=== PATIENT | female | born 1960 | race Caucasian/White ===

== ENCOUNTER 2016-08-09 08:09 | Inpatient (IN) ==
--- NOTE | 2016-08-08 09:07 | PROVIDER DOCUMENTATION ---
Addendum entered and electronically signed by Kevin Cruz MD 08/09/16 07:52: Additional Progress - ADDITIONAL PLAN OF CARE/RESULTS Additional Progress/Plan/Lab Results: Pt deteriorated overnight, devel resp insufficiency. She was transferred to [facility] ED, since required intubation, no Pulmonologists @ [place], and no ICU beds upstairs. Upon arrival, min responsive to verbal stimuli. She was sedated with Etomidats, paralayzed with Anectine. Intubated with 7.5 ET tube on first pass by me. Tube visualized going thru cords, cood change on colorimeter. Procedures - INTUBATION Time of Intubation: 07:40 Intubation Method: orotracheal Equipment: ETT, Other (Sethi 2) Tube Size (cm): 7.5 Pretreated with 100% Oxygen?: Yes Breath Sounds after Intubation: equal ETT Primary Tube Confirmation: Capnometry CO2 Change, Direct Visualization, Tube placement verified on XRAY Intubation Complications: no complications Vent Settings: See Respiratory Therapy Notes Addendum entered and electronically signed by Kevin Cruz MD 08/08/16 16:24: Progress - PLAN OF CARE/RESULTS Progress/Plan/Lab Results: Have talked with her psychiatrist (Samantha) office Have obtained med list... Depakote 500 mg qHS Haldol deconoate 5 mg IM q 4 weeks Cogentin 1 mg po BID. Original Note: HPI-General Adult - General Source: patient - History of Present Illness -Gen Adult Nature of Presenting Problems: Pt is a 55 yof with a hx of bipolar schizophrenia that presents to er with cc of loss of balance upon standing. Pt reports that her equillibrium has been off for 7 days after coming back from her brothers but pt then reports she seen her doctor 2 weeks ago for this and he gave her medications that didn't help. pt reports subjective fever and cough.Pt reports her heart skips beats and it races fast. States nausea and vomiting since last night and diarrhea since this am. Reports abd pain but is unable to describe the pain. Pt is a poor historian , elements of story is contradictive and pt is unable to describe her symptoms. Pt is unable to name any medications that she is taking from . Location of Pain/Injury: reports: generalized Severity: reports: severe Onset/Duration: reports: unsure Timing: reports: still present Similar Symptoms Previously?: Yes Recently seen or treated by another doctor?: Yes <Lisa Francis - Last Filed: 08/08/16 14:01> <Kevin Cruz - Last Filed: 08/08/16 14:14> - General Chief Complaint: Dizziness Stated Complaint: dizziness with n/v/d Time Seen by Provider: 08/08/16 08:50 Allergies/Adverse Reactions: Patient Allergies Allergy/AdvReac Type Severity Reaction Status Date / Time No Known Allergies Allergy Verified 02/09/16 15:53 Home Medications: Home Medication List Medication Instructions Recorded Confirmed Last Taken Type Benztropine [Cogentin] 1 mg PO BID 08/09/15 08/08/16 02/09/16 06:00 History Amlodipine [Norvasc] 5 mg PO DAILY 08/08/16 08/08/16 Unknown History Divalproex E.r. [Depakote ER] 1,000 mg PO HS 08/08/16 08/08/16 Unknown History Review of Systems - Adult - REVIEW OF SYSTEMS - ADULT Constitutional: reports: fever. denies: chills, fatique, night sweats Eyes: denies: blurred vision, double vision, eye pain Ears, Nose, Mouth & Throat: denies: ear pain, sinus problem, throat pain Cardiovascular: reports: irregular heart rate. denies: chest pain, orthopnea, poor circulation, PND, syncope Respiratory: reports: cough. denies: shortness of breath, wheezing Gastrointestinal: reports: abdominal pain, diarrhea, nausea, vomiting. denies: difficulty swallowing, frequent heartburn, poor appetite Genitourinary: denies: dysuria, frequent UTI's, hematuria, hesitency Musculoskeletal: reports: no symptoms reported Integumentary: reports: no symptoms reported Neurological: reports: loss of balance. denies: dizziness/vertigo, headache/ migraines, numbness, paresthesia, seizure Psychiatric: reports: no symptoms reported Endocrine: reports: no symptoms reported Hematologic/Lymphatic: reports: no symptoms reported Allergic/Immunologic: reports: no symptoms reported All Other Systems: Reviewed and Negative <Lisa Francis - Last Filed: 08/08/16 14:01> Past History - Adult - PAST MEDICAL HISTORY-ADULT Review of Records: reports: Nursing Assessment Review, Medications Reviewed Major Childhood Illnesses: reports: denies history Cardiovascular: reports: arrhythmia, HTN Respiratory: reports: asthma, COPD Neurological: reports: Seizures/Epilepsy Psychiatric: reports: bipolar, schizophrenia - PRIOR SURGERIES/PROCEDURES Surgical/Procedure History: reports: reviewed, not pertinent - IMMUNIZATION STATUS Childhood Immunizations: See Nurse Assessment Flu Vaccine: See Nurse Assessment - FAMILY HISTORY Family History: reviewed, not pertinent - SOCIAL HISTORY Smoking: greater than 1 pack/day Provider spent 3-5 mins advising pt. on dangers of tobacco.: Discussed manners to quit use, and f/u contacts for add'l counseling. Substance Use: none/never <Lisa Francis - Last Filed: 08/08/16 14:01> Physical Exam-General - PHYSICAL EXAM-ADULT Initial Vital Signs Reviewed: Yes - CONSTITUTIONAL General Appearance: alert, no apparent distress. negative: appears well - EYES Eyes: PERRL/EOMI - HEAD, EARS, NOSE, MOUTH & THROAT HENMT: moist mucous membranes, pharynx normal, dental decay - NECK Neck: non-tender, full range of motion, supple, normal inspection - RESPIRATORY Respiratory: chest non-tender, lungs clear, normal breath sounds, no pleuratic chest pain, no respiratory distress, no accessory muscle use - CARDIOVASCULAR Cardiovascular: regular rate, rhythm, tachycardia - GASTROINTESTINAL (ABDOMEN) Abdominal Exam: normal bowel sounds, non tender, soft, no organomegaly, no pulsatile mass - MUSCULOSKELETAL Back Exam: normal inspection, no CVA tenderness, no vertebral tenderness Extremity: normal range of motion, non-tender Peripheral Pulses: dorsalis-pedis (R): 2+, dorsalis-pedis (L): 2+ - SKIN Integumentary: normal color, normal turgor, warm/dry - NEUROLOGIC Neurologic: technician helper instrument II-XII nml as tested, grossly normal, no motor/sensory deficits - PSYCHIATRIC Psych/Mental Status: oriented x 3 <Lisa Francis - Last Filed: 08/08/16 14:01> Progress - PLAN OF CARE/RESULTS Progress/Plan/Lab Results: Orders Category Date Time Status ED: Orthostatic Vital Signs (E as directed Care 08/08/16 09:05 Active CHEST-PORTABLE [RAD] Stat Exams 08/08/16 09:05 Ordered AMYLASE [CHEM] Stat Lab 08/08/16 09:06 Ordered CBC WITH DIFF [HEME] Stat Lab 08/08/16 09:05 Ordered COMPREHENSIVE METABOLIC PANEL [CHEM] Stat Lab 08/08/16 09:05 Ordered LIPASE [CHEM] Stat Lab 08/08/16 09:06 Ordered [address]IME WITH INR PL [COAG] Stat Lab 08/08/16 09:[address] [COAG] Stat Lab 08/08/16 09:05 Ordered EKG [EKG] Stat Ther 08/08/16 09:04 Ordered Vital Signs - 24 hr 08/08/16 08:10 Temperature 98 F Pulse Rate 110 H Respiratory 20 Rate Blood Pressure 167/113 O2 Sat by Pulse 94 L Oximetry Md Cruz called office to find out medications that pt is taking 0910 They will fax a med list over to ED. Laboratory Tests 08/08/16 08/08/16 08/08/16 09:18 09:18 09:18 WBC 9.35 RBC 4.69 Hgb 14.8 Hct 42.8 MCV 91.3 MCH 31.6 H MCHC 34.6 RDW Std Deviation 12.8 Plt Count 188 MPV 9.5 Immature Gran % (Auto) 0.2 Neut % (Auto) 75.1 Lymph % (Auto) 10.1 L Walsh % (Auto) 14.2 H Eos % (Auto) 0.2 Baso % (Auto) 0.2 Immature Gran # (Auto) 0.02 Neut # (Auto) 7.02 H Lymph # (Auto) 0.94 L Walsh # (Auto) 1.33 H Eos # (Auto) 0.02 Baso # (Auto) 0.02 PT INR APTT (Factor Assay) Sodium 124 L Potassium 4.3 Chloride 84 L Carbon Dioxide 32 Anion Gap 9 BUN 11 Creatinine 0.5 Estimated GFR/1.73 m2 > 60 BUN/Creatinine Ratio 22 Glucose 109 H Calculated Osmolality 250 Calcium 9.3 Total Bilirubin 0.50 AST 31 H ALT 25 Alkaline Phosphatase 106 H Total Protein 7.2 Albumin 3.5 Globulin 4.0 Albumin/Globulin Ratio 1.0 Amylase 36 Lipase 9 L 08/08/16 09:18 WBC RBC Hgb Hct MCV MCH MCHC RDW Std Deviation Plt Count MPV Immature Gran % (Auto) Neut % (Auto) Lymph % (Auto) Walsh % (Auto) Eos % (Auto) Baso % (Auto) Immature Gran # (Auto) Neut # (Auto) Lymph # (Auto) Walsh # (Auto) Eos # (Auto) Baso # (Auto) PT 14.1 INR 1.06 APTT (Factor Assay) 28.7 Sodium Potassium Chloride Carbon Dioxide Anion Gap BUN Creatinine Estimated GFR/1.73 m2 BUN/Creatinine Ratio Glucose Calculated Osmolality Calcium Total Bilirubin AST ALT Alkaline Phosphatase Total Protein Albumin Globulin Albumin/Globulin Ratio Amylase Lipase Laboratory Tests 08/08/16 08/08/16 08/08/16 08:35 09:18 09:18 WBC 9.35 RBC 4.69 Hgb 14.8 Hct 42.8 MCV 91.3 MCH 31.6 H MCHC 34.6 RDW Std Deviation 12.8 Plt Count 188 MPV 9.5 Immature Gran % (Auto) 0.2 Neut % (Auto) 75.1 Lymph % (Auto) 10.1 L Walsh % (Auto) 14.2 H Eos % (Auto) 0.2 Baso % (Auto) 0.2 Immature Gran # (Auto) 0.02 Neut # (Auto) 7.02 H Lymph # (Auto) 0.94 L Walsh # (Auto) 1.33 H Eos # (Auto) 0.02 Baso # (Auto) 0.02 PT INR APTT (Factor Assay) Sodium 124 L Potassium 4.3 Chloride 84 L Carbon Dioxide 32 Anion Gap 9 BUN 11 Creatinine 0.5 Estimated GFR/1.73 m2 > 60 BUN/Creatinine Ratio 22 Glucose 109 H POC Glucose 111 H Calculated Osmolality 250 Calcium 9.3 Total Bilirubin 0.50 AST 31 H ALT 25 Alkaline Phosphatase 106 H Total Protein 7.2 Albumin 3.5 Globulin 4.0 Albumin/Globulin Ratio 1.0 Amylase Lipase 08/08/16 08/08/16 09:18 09:18 WBC RBC Hgb Hct MCV MCH MCHC RDW Std Deviation Plt Count MPV Immature Gran % (Auto) Neut % (Auto) Lymph % (Auto) Walsh % (Auto) Eos % (Auto) Baso % (Auto) Immature Gran # (Auto) Neut # (Auto) Lymph # (Auto) Walsh # (Auto) Eos # (Auto) Baso # (Auto) PT 14.1 INR 1.06 APTT (Factor Assay) 28.7 Sodium Potassium Chloride Carbon Dioxide Anion Gap BUN Creatinine Estimated GFR/1.73 m2 BUN/Creatinine Ratio Glucose POC Glucose Calculated Osmolality Calcium Total Bilirubin AST ALT Alkaline Phosphatase Total Protein Albumin Globulin Albumin/Globulin Ratio Amylase 36 Lipase 9 L - EKG 1 Time of EKG reading by physician:: 09:14 EKG Read and Signed by:: Kevin Cruz EKG Interpretation (*Must complete 3 of following elements*): Abnormal ( biatrial enlargement) Rate: 102 Rhythm: sinus tachy Paulina: normal ST Wave: non-specific ST changes - XRAY 1 XRAY: Bilateral XRAY Study: Chest Impression: Abnormal (cardiomegaly and pulmonary vascular congestion) - CONSULTS/PCP/HOSPITALIST Notification #1 *Consult/PCP/Hospitalist*: Time Discussed: 14:01 Consult Disposition: Admit <Lisa Francis - Last Filed: 08/08/16 14:01> Departure - Departure Time of Disposition Order: 13:17 Certified Medical Emergency: Emergent <Lisa Francis - Last Filed: 08/08/16 14:01> - Departure Certified Medical Emergency: Emergent <Kevin Cruz - Last Filed: 08/08/16 14:14> - Departure DIAGNOSIS: Nausea & vomiting, Hyponatremia, Diarrhea Disposition: ADMITTED INPATIENT 09 Condition: Stable Referrals: Cristóbal Singh [Primary Care Provider] - Attestation - Scribe Verification/Attestation Scribe:: Lisa Francis Acting as Scribe for:: Kevin Cruz Scribe documention review:: This chart was documented by a scribe and accurately reflects the service the provider performed and the decisions made by the provider. <Lisa Francis - Last Filed: 08/08/16 14:01> Physician Attestation - Physician Attestation I, the provider, attest to the following statement:: Kevin Cruz Physician documentation Attestation:: This documentation recorded by the scribe accurately reflects the service I personally performed and the decisions made by me. <Kevin Cruz - Last Filed: 08/08/16 14:14>
[2016-08-08 09:29] LABS: BASO% 0.2 % (0.0-0.8); EOS# 0.02 X1000 (0.0-0.7); EOS% 0.2 % (0.0-10.0); HEMATOCRIT 42.8 % (37.0-47.0); HEMOGLOBIN 14.8 g/dL (12.0-16.0); IMM GRAN# 0.02 X1000 (0.0-0.04); IMM GRAN% 0.2 % (0.0-0.5); LYMPH# 0.94 X1000 (1.2-3.4); LYMPH% 10.1 % (20.5-51.1); MANUAL DIFF NEEDED? NO; MCH 31.6 PG (27-31); MCHC 34.6 g/dL (33-37); MCV 91.3 FL (81-99); MONO# 1.33 X1000 (0.11-0.59); MONO% 14.2 % (1.7-9.3); MPV 9.5 FL (7.4-10.4); NEUT% 75.1 % (42.2-75.2); PLT 188 X1000 (130-400); RBC 4.69 XMIL (4.2-5.4)
--- NOTE | 2016-08-08 09:31 | EKG Report ---
Test Performed on : 08/08/2016 09:14:21 AM Test Reason : CP Blood Pressure : / mmHG Vent. Rate : 102 BPM Atrial Rate : 102 BPM P-R Int : 138 ms QRS Dur : 086 ms QT Int : 318 ms P-R-T Axes : 079 081 070 degrees QTc Int : 414 ms Sinus tachycardia. Biatrial enlargement Nonspecific ST abnormality Abnormal ECG When compared with ECG of 10-FEB-2016 05:50, No significant change was found Unconfirmed Result
[2016-08-08 09:49] LABS: INR 1.06 (0.86-1.15); PROTIME 14.1 Seconds (12.1-15.5)
[2016-08-08 09:50] LABS: PTT PL 28.7 Seconds (22.6-43.9)
[2016-08-08 09:57] LABS: AMYLASE 36 U/L (20-200); LIPASE 9 U/L (13-60)
[2016-08-08 10:09] LABS: AGAP 9; ALBUMIN 3.5 g/dL (3.5-5.0); ALKALINE PHOSPHATASE 106 U/L (32-104); BUN 11 mg/dL (8-22); CALCIUM 9.3 mg/dL (8.8-10.2); CHLORIDE 84 mmol/L (98-107); COSMO 250; GOT 31 U/L (10-30); GPT 25 U/L (10-36); POTASSIUM 4.3 mmol/L (3.5-5.1); SODIUM 124 mmol/L (136-145); TCO2 32 mmol/L (25-35); TOTAL PROTEIN 7.2 g/dL (6.3-8.3)
--- NOTE | 2016-08-08 10:25 | Diag Imaging Result Document ---
PROCEDURE NAME: CHEST-PORTABLE - 08/08/2016 PORTABLE CHEST X-RAY, 08/08/2016: COMPARISON: 02/10/2016. FINDINGS: Heart size is mildly enlarged. There is borderline pulmonary vascular congestion. No obvious infiltrates or edema. No pneumothorax or pleural effusion. IMPRESSION: Cardiomegaly and pulmonary vascular congestion.
[2016-08-08] MEDS: NS 1,000 ML IV SCH (15:52)
--- NOTE | 2016-08-08 19:27 | HISTORY AND PHYSICAL ---
CHIEF COMPLAINT: Nausea, vomiting and diarrhea. HISTORY OF PRESENT ILLNESS: This is a 55-year-old female with a history of bipolar disorder, schizophrenia, COPD and looks like atrial fibrillation. According to the ER records she stated that her balance had been off for about 7 days after coming back from a visit with family members. She states that nausea, vomiting and diarrhea started last night, and then in mid sentence she will refer to nausea, vomiting and diarrhea again and state that it happened within the last 2 weeks. So we are unsure of when symptoms actually started and how long they have been present. Dr. Cruz in the emergency room . She is found to have a sodium of 124, as well as a glucose of 109. Her chest x-ray revealed no pneumothorax or pleural effusion. No obvious infiltrates or edema. She is being admitted for further evaluation and treatment. PAST MEDICAL HISTORY: Per the chart, reveals COPD, schizophrenia, bipolar disorder, seizure disorder, anxiety disorder and atrial fibrillation. PAST SURGICAL HISTORY: Denies. SOCIAL HISTORY: She lives at [facility]. She smokes about a pack a day. She denies any illicit drug use. ALLERGIES: Aspirin and penicillin per the chart. HOME MEDICATIONS: Depakote 500 at bedtime. Haldol 5 mg IM q.4 weeks. Cogentin 1 mg b.i.d. REVIEW OF SYSTEMS: Unable to obtain from the patient due to conflicting accounts. PHYSICAL EXAMINATION: GENERAL: This is a 55-year-old female, who is sitting up in the bed eating in no distress. VITAL SIGNS: Blood pressure is 154/87 with a heart rate of 100, respirations are 20, temperature is 98.4 degrees oral with oxygen saturations of 96-97% on 2 L nasal cannula. CARDIOVASCULAR: Regular rate and rhythm. S1 and S2 appreciated. PULMONARY: Breath sounds are clear with no increased work of breathing noted. GASTROINTESTINAL: Soft, nontender, nondistended. Bowel sounds in all 4 quadrants. MUSCULOSKELETAL: Good range of motion to joints. EXTREMITIES: No clubbing, cyanosis, or edema. Calves are nontender. Pulses are palpable x4. SKIN: Warm and dry with linear areas noted on legs to the front of her shins, up her arms and on her sides. These are not scabbed. There is no drainage. DIAGNOSTICS/LABORATORY: WBC is 9.3 with a hemoglobin of 14.8, hematocrit 42.8 and platelets of 188,000. Sodium is 124, potassium 4.3, chloride 84, BUN 11, creatinine 0.5, glucose of 109. Lipase is 9. Chest x-ray reveals no acute processes. ASSESSMENT: 1. Hyponatremia. 2. Nausea, vomiting and diarrhea. 3. Psychogenic polydipsia. 4. Bipolar disorder. 5. Chronic obstructive pulmonary disease. 6. Schizophrenia. 7. Seizure disorder. 8. Anxiety disorder. 9. History of atrial fibrillation. PLAN: The patient will be admitted to the hospital. She will be placed on telemetry. Her eye home medications were verified with her psychiatrist as well as her pharmacy. We will continue these as ordered. We will give intravenous hydration. We will recheck electrolytes in the morning. Blood pressures are running in the 150-170s/80s. We will start Norvasc 5 mg daily and trend vital signs. The patient does have areas to bilateral legs on the front surface as well as her arms and her sides. These are linear. They appear to be old scratches. There are no scabs, no drainage. When she was 1st questioned, she stated she did not know what was wrong. Someone mentioned bedbugs and ants and she said "yes that is what it is", she had bed bugs from the field across the street, then ants were mentioned and she said yes, then she also stated that it could be mice biting her. We are unsure of these. There is no bruising. We will reassess in the morning. Further treatments pending hospital course. Dictated by KYLE Royal for Lamonte Bradsahw MD
[2016-08-09 01:57] LABS: BE 9.9 mmoll (-3.0-3.0); BLOOD TYPE ARTERIAL; DRAW SITE R RADIAL; METHB 1.6 % (0.0-1.5); O2(CT) 18.4 mL/dL (15.0-23.0); PO2(98.6) 113 mmHg (60-100); SAMPLE BLOOD; SAO2 98.6 % (95.0-100.0); THB 14.1 g/dL (11.5-17.4); pH(98.6) 7.22 (7.35-7.45)
[2016-08-09 02:00] LABS: ALLEN TEST YES; MODALITY VENTIMASK; PCO2(98.6) 103 mmHg (35-45)
[2016-08-09 02:48] LABS: HEMATOCRIT 40.2 % (37.0-47.0); HEMOGLOBIN 13.5 g/dL (12.0-16.0); MCH 31.4 PG (27-31); MCHC 33.6 g/dL (33-37); MCV 93.5 FL (81-99); MPV 9.1 FL (7.4-10.4); RBC 4.3 XMIL (4.2-5.4)
[2016-08-09 03:04] LABS: AGAP 6; ALKALINE PHOSPHATASE 96 U/L (32-104); BUN 9 mg/dL (8-22); CALCIUM 8.8 mg/dL (8.8-10.2); CHLORIDE 88 mmol/L (98-107); COSMO 256; GOT 23 U/L (10-30); GPT 22 U/L (10-36); MAGNESIUM 1.4 mg/dL (1.5-2.7); POTASSIUM 4.6 mmol/L (3.5-5.1); SODIUM 127 mmol/L (136-145); TCO2 33 mmol/L (25-35); TOTAL PROTEIN 6.5 g/dL (6.3-8.3)
[2016-08-09 05:22] LABS: BE 7.2 mmoll (-3.0-3.0); BLOOD TYPE ARTERIAL; DRAW SITE R RADIAL; METHB 1.5 % (0.0-1.5); O2(CT) 17.1 mL/dL (15.0-23.0); PO2(98.6) 83 mmHg (60-100); SAMPLE BLOOD; SAO2 96.7 % (95.0-100.0); THB 13.3 g/dL (11.5-17.4)
[2016-08-09 05:41] LABS: ALLEN TEST YES; MODALITY BI PAP; PCO2(98.6) 103 mmHg (35-45); pH(98.6) 7.19 (7.35-7.45)
[2016-08-09] MEDS: NS 1,000 ML IV SCH ×2 (06:46→23:12)
--- NOTE | 2016-08-09 07:32 | Diag Imaging Result Document ---
PROCEDURE NAME: CHEST-PORTABLE - 08/09/2016 ERECT AP PORTABLE CHEST AT 0137 HOURS: FINDINGS: There may be a mild degree of interstitial pulmonary edema. This has not apparently changed significantly since the previous study of 08/08/2016. The heart size and pulmonary vascularity are stable in appearance. IMPRESSION: Stable chest.
[2016-08-09] MEDS: DIPRIVAN 1% 100 ML IV SCH ×12 (07:50→21:01)
[~2016-08-09 08:09] MED LIST: AMIDATE IV ONE; AMIDATE ONE; COGENTIN PO SCH; DIPRIVAN 1% 100 ML ONE; DUONEB (A & A) INH ONE; DUONEB (A & A) ONE; FLUZONE QUAD 2016-2017 SYRINGE IM ONE; LASIX IV ONE; LEVAQUIN 750 MG/D5W 150 ML IV SCH; MAGNESIUM SULFATE 2 GM/S.W.I. 50 ML IV ONE; NS 1,000 ML IV ONE; OFIRMEV 1000 MG/ISOTONIC SOLN 100 ML IV ONE; PNEUMOVAX 23 IM ONE; PROTONIX IV SCH; QUELICIN IV ONE; QUELICIN ONE; SODIUM CHLORIDE 0.9% INJ SCH; TYLENOL PO PRN; ZOFRAN IV PRN
[2016-08-09] MEDS ORDERED: DUONEB (A & A) INH PRN (08:24)
[2016-08-09 08:27] LABS: ALLEN TEST YES; BLOOD TYPE ARTERIAL; DRAW SITE R RADIAL; METHB 2.1 % (0.0-1.5); O2(CT) 17.9 mL/dL (15.0-23.0); PO2(98.6) 454 mmHg (60-100); SAMPLE BLOOD; SAO2 99.2 % (95.0-100.0); SRATE 12 BPM; THB 12.6 g/dL (11.5-17.4); TVOL 450 mL
[2016-08-09 08:28] LABS: MODALITY VENTILATOR; PCO2(98.6) 92 mmHg (35-45)
[2016-08-09] MEDS ORDERED: LEVAQUIN 750 MG/D5W 150 ML ONE (08:56)
[2016-08-09] MEDS ORDERED: NORVASC PO SCH (09:00)
[2016-08-09 09:50] LABS: AGAP 4; ALBUMIN 2.8 g/dL (3.5-5.0); ALKALINE PHOSPHATASE 81 U/L (32-104); BUN 12 mg/dL (8-22); CALCIUM 7.8 mg/dL (8.8-10.2); CHLORIDE 89 mmol/L (98-107); CK PROFILE 54 U/L (24-173); COSMO 260; GOT 17 U/L (10-30); GPT 17 U/L (10-36); POTASSIUM 4.5 mmol/L (3.5-5.1); SODIUM 130 mmol/L (136-145); TCO2 37 mmol/L (25-35); TOTAL BILIRUBIN 0.47 mg/dL (0.20-1.00); TOTAL PROTEIN 5.3 g/dL (6.3-8.3)
--- NOTE | 2016-08-09 10:26 | EKG Report ---
Test Performed on : 08/09/2016 09:42:01 AM Test Reason : resp failure Blood Pressure : / mmHG Vent. Rate : 074 BPM Atrial Rate : 074 BPM P-R Int : 120 ms QRS Dur : 092 ms QT Int : 424 ms P-R-T Axes : 046 075 053 degrees QTc Int : 470 ms Normal sinus rhythm. T wave abnormality, consider anterior ischemia Prolonged QT Abnormal ECG When compared with ECG of 08-AUG-2016 09:14, (Unconfirmed) T wave inversion now evident in Anterior leads QT has lengthened Confirmed by Mary REDDY, Wily Pandya ([id number]) on 08/09/2016 3:42:27 PM
[2016-08-09] MEDS ORDERED: PROTONIX ONE (10:34)
[2016-08-09] MEDS ORDERED: ZOSYN ONE (10:34)
[2016-08-09] MEDS ORDERED: NS ONE (10:34)
[2016-08-09] MEDS: ZOSYN 3.375 GM/NS 50 ML IV SCH ×3 (10:40→21:01)
--- NOTE | 2016-08-09 11:14 | Diag Imaging Result Document ---
PROCEDURE NAME: CHEST-PORTABLE - 08/09/2016 SINGLE FRONTAL RADIOGRAPH OF THE CHEST: COMPARISON: 08/09/2016. FINDINGS: There has been interval placement of an ET tube. The tip projects over the trachea and above the richard at about the T4 level. There is, perhaps, very mild interstitial prominence similar to the previous study. No new consolidation is identified. Cardiac silhouette is stable. IMPRESSION: Interval intubation as described. Otherwise, the chest is stable.
[2016-08-09] MEDS: DUONEB (A & A) INH SCH ×4 (11:30→22:55)
--- NOTE | 2016-08-09 12:30 | Diag Imaging Result Document ---
PROCEDURE NAME: HEAD W/O CONTRAST - 08/09/2016 CT BRAIN WITHOUT CONTRAST. DOSE REDUCTION PROTOCOL. FINDINGS: No parenchymal hemorrhage. No epidural or subdural hematoma. No subarachnoid hemorrhage. No mass identified on this noncontrasted exam. No hydrocephalus. There is mucous in the ethmoid sinuses and a small amount in the frontal, maxillary, and sphenoid sinuses. IMPRESSION: 1. No hemorrhage. 2. Mild microvascular ischemic changes. 3. Mild sinusitis. A preliminary report was given at 12:15 p.m..
[2016-08-09 12:52] LABS: URINE CULTURE NEEDED? NO; URINE MICRO REVIEW NEEDED? NO; URINE SOURCE CATH
[2016-08-09 13:01] LABS: BILIRUBIN URINE NEGATIVE (NEGATIVE); BLOOD URINE TRACE (NEGATIVE); COLOR YELLOW; GLUCOSE URINE NEGATIVE (NEGATIVE); LEUKOCYTES URINE NEGATIVE (NEGATIVE); NITRITE URINE NEGATIVE (NEGATIVE); PROTEIN URINE TRACE mg/dL (NEGATIVE); SP GRAVITY URINE 1.012; TURBIDITY URINE CLEAR (CLEAR); UROBILINOGEN URINE NORMAL (NORMAL)
[2016-08-09 13:03] LABS: UR EPITHELIAL CELLS <10 /HPF (<10); URINE BACTERIA NEGATIVE /HPF; URINE RBC <10 /HPF (<10); URINE WBC <10 /HPF (<10)
[2016-08-09 13:25] LABS: UR AMPHETAMINES QUAL NONE DETECTED (NONE DETECT); UR BARBITUATES QUAL NONE DETECTED (NONE DETECT); UR BENZODIAZEPIN QUAL NONE DETECTED (NONE DETECT); UR CANNABINOIDS QUAL NONE DETECTED (NONE DETECT); UR COCAINE QUAL NONE DETECTED (NONE DETECT); UR METHADONE QUAL NONE DETECTED (NONE DETECT); UR OPIATES QUAL NONE DETECTED (NONE DETECT); UR OXYCODONE QUAL NONE DETECTED (NONE DETECT); UR PCP QUAL NONE DETECTED (NONE DETECT)
[2016-08-09 13:26] LABS: UR CREAT RANDOM 85.5 mg/dL (11-20)
[2016-08-09 14:44] LABS: BASO% 0.3 % (0.0-0.8); EOS# 0.12 X1000 (0.0-0.7); EOS% 1.5 % (0.0-10.0); HEMATOCRIT 36.1 % (37.0-47.0); IMM GRAN# 0.02 X1000 (0.0-0.04); IMM GRAN% 0.3 % (0.0-0.5); LYMPH# 1.38 X1000 (1.2-3.4); LYMPH% 17.7 % (20.5-51.1); MANUAL DIFF NEEDED? YES; MCH 31.7 PG (27-31); MCHC 33.2 g/dL (33-37); MCV 95.5 FL (81-99); MONO# 1.67 X1000 (0.11-0.59); MONO% 21.5 % (1.7-9.3); MPV 9.1 FL (7.4-10.4); NEUT% 58.7 % (42.2-75.2); PLT 173 X1000 (130-400); RBC 3.78 XMIL (4.2-5.4)
[2016-08-09] MEDS ORDERED: NS 1,000 ML IV SCH (14:57)
[2016-08-09 15:15] LABS: BANDS 8 % (0-1); EOS 2 % (1-10); LYMPHS 8 % (21-51); MONO 16 % (1-9)
[2016-08-09] MEDS: LASIX IV SCH ×2 (15:19→23:12)
[2016-08-09] MEDS: SOLU-MEDROL IV SCH ×2 (15:19→23:12)
[2016-08-09 15:27] LABS: ALLEN TEST YES; BE 5.9 mmoll (-3.0-3.0); BLOOD TYPE ARTERIAL; DRAW SITE R RADIAL; METHB 1.7 % (0.0-1.5); O2(CT) 16.4 mL/dL (15.0-23.0); PO2(98.6) 96 mmHg (60-100); SAMPLE BLOOD; SAO2 98.8 % (95.0-100.0); SRATE 8 BPM; THB 12.3 g/dL (11.5-17.4); TVOL 700 mL; pH(98.6) 7.34 (7.35-7.45)
[2016-08-09 15:30] LABS: MODALITY VENTILATOR
--- NOTE | 2016-08-09 15:47 | CONSULTATION ---
DATE OF CONSULTATION: 08/09/2016 REQUESTING PHYSICIAN: Lamonte Bradshaw M.D. REASON FOR CONSULTATION: Respiratory failure. HISTORY OF PRESENT ILLNESS: Ms. Valentin is a 55-year-old, white female, with COPD, ongoing tobacco use, bipolar/schizophrenic disorder, who presented to the emergency room with difficulty in balance along with nausea and vomiting. The patient was admitted to the hospital and had a drop in oxygen saturations and decline in mental status. Arterial blood gas revealed a pC02 of 103 which did not improve with BiPAP. She was transferred to [facility] from the [facility] intubated and initiated on mechanical ventilation. Chest x-ray reveals generous cardiac silhouette with mild vascular prominence. CT scan of the brain was performed which revealed mild microvascular ischemic changes but no hemorrhage. PAST MEDICAL HISTORY: 1. COPD with ongoing tobacco use. 2. Psychiatric disease as per above. 3. History of seizure disorder. 4. History of anxiety disorder. SOCIAL HISTORY: Patient previously lived at [facility]. Ongoing tobacco use. No illicit drug use. FAMILY HISTORY: Positive for diabetes and heart disease. REVIEW OF SYSTEMS: Cannot be obtained. PHYSICAL EXAMINATION: General: Examination reveals a well-developed, well-nourished, white female who appears older than her stated age, on mechanical ventilation. Vital Signs: BP 143/79, heart rate 78, respiration rate set at 18, oxygen saturation 100%. The ventilator is reviewed. She is not completing her exhalation with a respiratory rate of 18. HEENT: Pupils are equal and reactive. Oropharynx is clear but there is mild hirsutism. Neck: Supple. Chest: Reveals prolonged expiratory phase. Each exhalation is taking 7-8 seconds. Chest reveals prolonged expiratory phase with distant wheezing. Cardiac Examination: Distant heart sounds. Normal S1, normal S2. Abdomen: Soft without hepatosplenomegaly. Extremities: Reveal trace edema with some scratches on both shins. IMPRESSION: A 55-year-old with psychiatric disorder, severe chronic obstructive pulmonary disease, ongoing tobacco use, who presents with acute on chronic hypercapnic respiratory failure and acute hypoxemic respiratory failure. RECOMMENDATIONS: 1. Continue full ventilatory support. 2. Input and output equal for the next 24 hours. 3. Agree with current antibiotic regimen. 4. Continue nebulizers q.4 hours. 5. Initiate steroids. 6. Routine gastric acid suppression. 7. Additional recommendations pending hospital course.
[2016-08-09 16:14] LABS: PCO2(98.6) 62 mmHg (35-45)
--- NOTE | 2016-08-09 16:47 | ECHO REPORT ---
ORDER DATE: 08/09/2016 INTERPRETING PHYSICIAN: Dr. Abrams REQUESTING PHYSICIAN: CLINICAL INDICATIONS: This is a 55-year-old female with COPD, atrial fibrillation, respiratory failure. M-MODE MEASUREMENTS: Right ventricle: 3.5 cm. Left ventricle end diastole: 4.1 cm. Left ventricle end systole: 2.8 cm. Posterior wall: 1.1 cm. Interventricular septum: 1.1 cm. Left atrium: 3.5 cm. Aortic root: 2.6 cm. SUMMARY OF 2-DIMENSIONAL IMAGIN. The left ventricular function appears to be normal. Ejection fraction is estimated to be in the order of 60% to 65%. No wall motion abnormality appears to be present. 2. The study is technically difficult. The patient is on a ventilator. 3. There is probably mild degree of concentric LVH. 4. The mitral valve opens normally. Color flow mapping is unremarkable. 5. Pulse wave Doppler of mitral inflow is normal. 6. Tissue Doppler of septal and lateral mitral annulus averages 7 cm. 7. The pulmonary venous flow shows normal pattern. 8. Aortic valve looks normal. Color flow mapping is unremarkable. 9. Pulmonic valve looks normal. Color flow mapping is unremarkable. 10.The tricuspid valve shows trace regurgitation. 11.The pulmonary pressure appears to be at 33 mmHg. 12.There is no pericardial effusion, mass or thrombus. 13.The atria appear to be normal. CONCLUSIONS: 1. Normal left ventricular systolic function. 2. Moderately enlarged right ventricle. 3. No valvular abnormality of any significance. 4. No diastolic dysfunction. 5. Pulmonary systolic pressure is 33 mmHg. Clinical correlation is recommended.
[2016-08-09] MEDS ORDERED: TYLENOL PO PRN (22:33)
[2016-08-09] MEDS ORDERED: ZOFRAN IV PRN (22:33)
[2016-08-10] MEDS: DIPRIVAN 1% 100 ML IV SCH ×9 (00:21→23:02)
[2016-08-10] MEDS: ZOSYN 3.375 GM/NS 50 ML IV SCH ×4 (02:37→20:42)
[2016-08-10] MEDS: DUONEB (A & A) INH SCH ×6 (03:46→23:09)
[2016-08-10] MEDS: SOLU-MEDROL IV SCH ×4 (05:24→23:20)
[2016-08-10] MEDS: LEVAQUIN 750 MG/D5W 150 ML IV SCH (05:24)
[2016-08-10 05:41] LABS: ALLEN TEST YES; BE 9.7 mmoll (-3.0-3.0); BLOOD TYPE ARTERIAL; DRAW SITE R RADIAL; METHB 2.2 % (0.0-1.5); O2(CT) 15.1 mL/dL (15.0-23.0); PO2(98.6) 112 mmHg (60-100); SAMPLE BLOOD; SAO2 98.4 % (95.0-100.0); SRATE 8 BPM; THB 11.2 g/dL (11.5-17.4); TVOL 700 mL; pH(98.6) 7.36 (7.35-7.45)
[2016-08-10 05:42] LABS: MODALITY VENTILATOR; PCO2(98.6) 66 mmHg (35-45)
[2016-08-10 05:50] LABS: HEMATOCRIT 36.9 % (37.0-47.0); HEMOGLOBIN 12.1 g/dL (12.0-16.0); MCH 31.3 PG (27-31); MCHC 32.8 g/dL (33-37); MCV 95.3 FL (81-99); MPV 10.3 FL (7.4-10.4); RBC 3.87 XMIL (4.2-5.4)
[2016-08-10] MEDS ORDERED: ATIVAN IV ONE (06:11)
[2016-08-10 06:44] LABS: AGAP 13; BUN 13 mg/dL (8-22); CALCIUM 8.8 mg/dL (8.8-10.2); CHLORIDE 89 mmol/L (98-107); COSMO 270; HDL 19 mg/dL (45-65); LDL 60 mg/dL; POTASSIUM 3.6 mmol/L (3.5-5.1); SODIUM 134 mmol/L (136-145); TCO2 32 mmol/L (25-35); TRIGLYCERIDES 96 mg/dL (35-135); VLDL 19 mg/dL
[2016-08-10] MEDS ORDERED: PROTONIX IV SCH (08:00)
--- NOTE | 2016-08-10 08:08 | Diag Imaging Result Document ---
PROCEDURE NAME: CHEST-PORTABLE - 08/10/2016 PORTABLE CHEST: COMPARISON: 08/09/2016. FINDINGS: Endotracheal tube remains in place. There has been apparent insertion of a nasogastric tube, but the distal end of the nasogastric tube is indistinct beyond the mid esophagus, possibly related to technical factors. Heart size appears upper normal. There is stable mild infrahilar infiltrate on the left. There is no pleural effusion or pneumothorax identified. IMPRESSION: Apparent insertion of nasogastric tube, the distal portion of which is indistinct beyond the mid esophagus, possibly due to technical factors. Stable left infrahilar infiltrate.
[2016-08-10] MEDS: SODIUM CHLORIDE 0.9% INJ SCH ×2 (08:34→20:43)
[2016-08-10] MEDS ORDERED: MAGNESIUM SULFATE 2 GM/S.W.I. 50 ML IV ONE (08:43)
[2016-08-10] MEDS: NS 1,000 ML IV SCH ×2 (09:06→14:01)
--- NOTE | 2016-08-10 10:14 | PROGRESS NOTE ---
DATE: 08/10/2016 SUBJECTIVE: This patient is sedated and intubated. No acute events overnight. No family members at the bedside. Vital signs are stable, and pulmonary department is following this patient. OBJECTIVE: Vital signs: Temperature 97.7, pulse 71, respiratory rate 8, blood pressure 160/88, oxygen saturation 98 on 40% oxygen flow mechanical ventilation. HEENT: Head normocephalic, no trauma, PERRLA. Neck: Supple, no JVD, no masses. Chest: Prolonged expiratory phase. No wheezing, no rales. Cardiovascular: Distant heart sounds, RRR, no murmurs. Abdomen: Soft, nontender, nondistended, obese. No hepatosplenomegaly. Extremities: No edema , no clubbing, no cyanosis. This patient has a few red, small lesions on the extremities that probably are old. They do not look like petechial lesions. LABORATORY: WBC 7.4, hemoglobin 12.1, hematocrit 36.9, platelets 132. Sodium 134, potassium 3.6, chloride 89, bicarbonate 32, BUN 13, creatinine 0.6, glucose 134, calcium 8.8, magnesium 1.3. ASSESSMENT AND PLAN: 1. Acute on chronic hypercapnic respiratory failure and acute hypoxemic respiratory failure. We will continue for now with full ventilatory support. Pulmonary department is following this patient. Will continue to monitor. 2. Hyponatremia. This is getting better, today is 134. I will continue with the same management. 3. History of bipolar disorder. Continue with same management. 4. History of schizophrenia. Continue with same management. 5. History of psychogenic polydipsia. Probably this is the cause of her hyponatremia, but at this point we are not sure about it. 6. History of seizure disorder. Continue with the same management. 7. Anxiety disorder. Aware. 8. History of atrial fibrillation. This patient at this moment is in normal sinus rhythm. 9. Hypomagnesemia. I will replace the magnesium. Critical care time 40 minutes. MTDD
[2016-08-10] MEDS: PROTONIX IV SCH (20:42)
[2016-08-11] MEDS: DIPRIVAN 1% 100 ML IV SCH ×6 (01:54→21:29)
[2016-08-11] MEDS: NS 1,000 ML IV SCH ×4 (01:55→17:47)
[2016-08-11] MEDS: ZOSYN 3.375 GM/NS 50 ML IV SCH ×4 (03:36→20:26)
[2016-08-11] MEDS: DUONEB (A & A) INH SCH ×6 (03:38→22:47)
[2016-08-11 04:27] LABS: MANUAL DIFF NEEDED? NO
[2016-08-11 04:28] LABS: BASO% 0.2 % (0.0-0.8); HEMATOCRIT 34.7 % (37.0-47.0); HEMOGLOBIN 11.5 g/dL (12.0-16.0); IMM GRAN# 0.02 X1000 (0.0-0.04); IMM GRAN% 0.2 % (0.0-0.5); LYMPH# 0.59 X1000 (1.2-3.4); LYMPH% 6.6 % (20.5-51.1); MCH 31.3 PG (27-31); MCHC 33.1 g/dL (33-37); MCV 94.3 FL (81-99); MONO# 0.75 X1000 (0.11-0.59); MONO% 8.4 % (1.7-9.3); MPV 9.2 FL (7.4-10.4); NEUT% 84.6 % (42.2-75.2); PLT 169 X1000 (130-400); RBC 3.68 XMIL (4.2-5.4)
[2016-08-11 04:31] LABS: ALLEN TEST YES; BE 11.6 mmoll (-3.0-3.0); BLOOD TYPE ARTERIAL; DRAW SITE R RADIAL; METHB 1.2 % (0.0-1.5); O2(CT) 15.9 mL/dL (15.0-23.0); PO2(98.6) 102 mmHg (60-100); SAMPLE BLOOD; SAO2 100.1 % (95.0-100.0); SRATE 8 BPM; THB 11.7 g/dL (11.5-17.4); TVOL 700 mL; pH(98.6) 7.45 (7.35-7.45)
[2016-08-11 04:43] LABS: MODALITY VENTILATOR; PCO2(98.6) 54 mmHg (35-45)
[2016-08-11 05:08] LABS: AGAP 7; BUN 17 mg/dL (8-22); CALCIUM 8.5 mg/dL (8.8-10.2); CHLORIDE 92 mmol/L (98-107); COSMO 274; MAGNESIUM 1.7 mg/dL (1.5-2.7); POTASSIUM 4.3 mmol/L (3.5-5.1); SODIUM 133 mmol/L (136-145); TCO2 34 mmol/L (25-35)
[2016-08-11] MEDS: SOLU-MEDROL IV SCH ×4 (05:30→22:57)
[2016-08-11] MEDS: LEVAQUIN 750 MG/D5W 150 ML IV SCH (05:30)
--- NOTE | 2016-08-11 07:48 | Diag Imaging Result Document ---
PROCEDURE NAME: CHEST-PORTABLE - 08/11/2016 PORTABLE CHEST: COMPARISON: Compared to 08/10/2016. FINDINGS: The lungs are well expanded. The endotracheal tube is in good position. The nasogastric tube overlies the esophagus and stomach. The heart is not enlarged. The vessels are not distended. No consolidation. There is a granuloma in the left base. No pleural effusions identified. There are small calcified left hilar lymph nodes. IMPRESSION: Stable chest.
[2016-08-11] MEDS: PROTONIX IV SCH ×2 (08:57→20:26)
[2016-08-11] MEDS: LASIX IV SCH ×2 (11:04→17:47)
--- NOTE | 2016-08-11 11:22 | PROGRESS NOTE ---
DATE: 08/11/2016 SUBJECTIVE: This patient is still sedated and intubated, no acute events overnight. No family members at the bedside. Vital signs are stable. Pulmonary department is following this patient. OBJECTIVE: Vital Signs: Temperature 97.6, pulse 65, respiratory rate 16, blood pressure 147/80, oxygen saturation 95% on mechanical ventilation 40% oxygen flow. HEENT: Head normocephalic. No trauma. PERRLA. Neck: Supple. No JVD. No masses. Central trachea. Chest: Prolonged expiratory phase. No wheezing. No rales. Cardiovascular: Distant heart sounds. RRR. No murmurs. Abdomen: Soft, nontender, nondistended, obese. No hepatosplenomegaly. Extremities: No edema. No clubbing. No cyanosis. She has a few red small lesions, petechial-like, at the level of the extremities versus chronic lesions. Compared with admission they are about the same. We will continue to monitor. LABORATORY: WBC 8.9, hemoglobin 11.5, hematocrit 34.7, platelets 169. Sodium 133, potassium 4.3, chloride 92, bicarbonate 34, BUN 17, creatinine 0.6, glucose 205, calcium 8.5, magnesium 1.7. ASSESSMENT AND PLAN: 1. Acute on chronic hypercapnic respiratory failure and hypoxemic respiratory failure. We will continue for now with full ventilatory support. Pulmonary department is following this patient. We will continue to monitor. 2. Hyponatremia. Compared with yesterday it is around the same. We will continue to monitor. 3. History of bipolar disorder. Continue with the same management. 4. History of schizophrenia. Continue with the same management. 5. History of psychogenic polydipsia. Continue with the same management; probably this is the cause of her hyponatremia, but at this point we are not sure about it. 6. History of seizure disorder. Continue with the same treatment. 7. Anxiety disorder. Aware. 8. Hypomagnesemia. Resolved. Critical care time: 35 minutes.
[2016-08-11] MEDS: SODIUM CHLORIDE 0.9% INJ SCH (20:26)
[2016-08-11] MEDS: APRESOLINE IV PRN (22:04)
[2016-08-12] MEDS: DIPRIVAN 1% 100 ML IV SCH ×8 (00:30→22:08)
[2016-08-12] MEDS: NS 1,000 ML IV SCH ×2 (00:31→19:48)
[2016-08-12] MEDS: LASIX IV SCH (01:54)
[2016-08-12] MEDS: ZOSYN 3.375 GM/NS 50 ML IV SCH ×4 (02:05→20:08)
--- NOTE | 2016-08-12 02:32 | PROGRESS NOTE ---
DATE: 08/09/2016 SUBJECTIVE: The patient had a very eventful night. On admission yesterday, she was talkative, but completely confused, disoriented, could not carry on any train of thought or plan of action. Some time in the middle of the night, she became more short of breath, disoriented, having more trouble breathing and was placed on BBiPAP This morning, she is still somewhat somnolent, difficult to arouse, does not follow any commands. OBJECTIVE: Vital Signs: On physical temp 101.1, temp current 98.4, pulse 89-128, respiratory 18- 26, BP 125/59, satting 98% on BiPAP. General: Patient is somnolent. She does not arouse, does not answer questions, does not follow commands. She is currently on BiPAP and is in moderate-to- severe respiratory distress. HEENT: Normocephalic. Neck: Supple. CV: Currently appears sinus rhythm. Chest: Greatly decreased breath sounds bilaterally. Unable to appreciate any crackles or wheezing. Abdomen: Soft, obese. Extremities: The patient was noted to move all 4 extremities yesterday. Currently today she is sedated and does not follow any commands. LABS: CBC normal. BMP with a sodium 127, glucose 123, CPKs 27, troponin is 0.053. ABG with a pH of 7.1, pCO2 of 103, base excess of 7.2, carboxyhemoglobin 4.5. Lactate is 0.5. BNP 3527. Magnesium is 1.4. ASSESSMENT: 1. Acute respiratory failure with hypoxic respiratory failure. 2. Hypomagnesemia. Will replace. 3. Acute hypercapnic respiratory failure. Uncertain etiology. 4. Hyponatremia, appears improving. 5. Bipolar disorder. 6. Chronic obstructive pulmonary disease. 7. Schizophrenia. 8. History of atrial fibrillation. PLAN: At this point, we will transfer patient to [facility] as we do not have pulmonology coverage here. Certainly expect that she will need to be intubated if this continues. Her pCO2 has climbed to 100, and has not improved with BiPAP. Certainly concerning that patient could possibly have neuroleptics malignant syndrome. She has multiple potential signs and symptoms, including hyperthermia, a rapid decrease in level of consciousness, tachycardia and respiratory distress. Several labs are currently pending. Thankfully her CPK has been reported as normal. Uncertain if she has aspirated, therefore she was started on multi antibiotics. We will continue to follow.
[2016-08-12] MEDS: DUONEB (A & A) INH SCH ×6 (03:14→23:21)
[2016-08-12] MEDS: SOLU-MEDROL IV SCH ×4 (04:34→23:14)
[2016-08-12 04:55] LABS: MANUAL DIFF NEEDED? NO
[2016-08-12] MEDS: LEVAQUIN 750 MG/D5W 150 ML IV SCH (05:00)
[2016-08-12 05:19] LABS: ALLEN TEST YES; BE 22.3 mmoll (-3.0-3.0); BLOOD TYPE ARTERIAL; DRAW SITE R RADIAL; METHB 1.5 % (0.0-1.5); O2(CT) 9.7 mL/dL (15.0-23.0); PO2(98.6) 87 mmHg (60-100); SAMPLE BLOOD; SAO2 98.2 % (95.0-100.0); SRATE 8 BPM; THB 7.1 g/dL (11.5-17.4); TVOL 700 mL; pH(98.6) 7.44 (7.35-7.45)
[2016-08-12 05:20] LABS: MODALITY VENTILATOR; PCO2(98.6) 72 mmHg (35-45)
[2016-08-12 05:25] LABS: BASO% 0.1 % (0.0-0.8); HEMATOCRIT 36.4 % (37.0-47.0); HEMOGLOBIN 11.8 g/dL (12.0-16.0); IMM GRAN# 0.02 X1000 (0.0-0.04); IMM GRAN% 0.2 % (0.0-0.5); LYMPH# 0.69 X1000 (1.2-3.4); LYMPH% 7.4 % (20.5-51.1); MCH 31.2 PG (27-31); MCHC 32.4 g/dL (33-37); MCV 96.3 FL (81-99); MONO# 0.89 X1000 (0.11-0.59); MONO% 9.5 % (1.7-9.3); MPV 9.6 FL (7.4-10.4); NEUT% 82.8 % (42.2-75.2); PLT 209 X1000 (130-400); RBC 3.78 XMIL (4.2-5.4)
[2016-08-12 05:39] LABS: AGAP 11; BUN 22 mg/dL (8-22); CALCIUM 8.4 mg/dL (8.8-10.2); CHLORIDE 92 mmol/L (98-107); COSMO 287; MAGNESIUM 1.5 mg/dL (1.5-2.7); POTASSIUM 4.1 mmol/L (3.5-5.1); SODIUM 140 mmol/L (136-145); TCO2 37 mmol/L (25-35)
[2016-08-12] MEDS: PROTONIX IV SCH ×2 (08:31→20:08)
[2016-08-12] MEDS: SODIUM CHLORIDE 0.9% INJ SCH ×2 (08:31→20:08)
--- NOTE | 2016-08-12 08:39 | Diag Imaging Result Document ---
PROCEDURE NAME: CHEST-PORTABLE - 08/12/2016 PORTABLE CHEST X-RAY, 08/12/2016: COMPARISON: 08/11/2016. FINDINGS: Stable endotracheal tube and nasogastric tube in good position. The lungs are grossly clear and the heart size is grossly normal. IMPRESSION: No complication or change from prior.
--- NOTE | 2016-08-12 11:57 | PROGRESS NOTE ---
DATE: 08/12/2016 SUBJECTIVE: This patient is still sedated and intubated. No acute events overnight. No family members at the bedside. Vital signs are stable. Pulmonary department is following this patient. OBJECTIVE: Vital Signs: Temperature 98 degrees, pulse 67, respiratory rate 9, blood pressure 146/78, oxygen saturation 93 on mechanical ventilation 40% oxygen flow. HEENT: Head normocephalic. No trauma. PERRLA. Neck: Supple. No JVD. No masses. Central trachea. Chest: Prolonged expiatory phase. No wheezing. No rales. Cardiovascular: Distant heart sounds. RRR. No murmurs. Abdomen: Soft, nontender, nondistended. No hepatosplenomegaly. Extremities: No edema. No clubbing. No cyanosis. She had a few red small lesions, petechial like lesions at the level of the extremities but also this could be chronic. Compared with admission, they are about the same. We will continue to monitor. Neurological: This patient is sedated and intubated. LABORATORY: WBC 9.3, hemoglobin 11.8, hematocrit 36.4, platelets 209,000. Sodium 140, potassium 4.1, chloride 92, bicarbonate 37, BUN 22, creatinine 0.6, glucose 182, calcium 8.4. ASSESSMENT AND PLAN: 1. Acute on chronic hypercapnic and hypoxemic respiratory failure. We will continue for now with full mechanical ventilation support. Pulmonary department is following this patient. We will continue to monitor. 2. Hyponatremia, resolved. 3. History of bipolar disorder. Continue with the same management. 4. History of schizophrenia. Continue to monitor. 5. History of psychogenic polydipsia. Continue to monitor. 6. History of seizure disorder. Continue with the same management. 7. Anxiety disorder, aware. 8. Hypomagnesemia, resolved 9. Apparently this patient has a history of chronic obstructive pulmonary disease and multiple psychiatric disorders. For now, we are going to keep this patient intubated. Pulmonary department is following this patient. CRITICAL CARE TIME: 30 minutes.
[2016-08-12] MEDS: APRESOLINE IV PRN (23:14)
[2016-08-13] MEDS: DIPRIVAN 1% 100 ML IV SCH ×3 (01:08→06:48)
[2016-08-13] MEDS: ZOSYN 3.375 GM/NS 50 ML IV SCH ×4 (02:25→20:16)
[2016-08-13] MEDS: DUONEB (A & A) INH SCH ×6 (03:25→22:58)
[2016-08-13 04:33] LABS: ALLEN TEST YES; BE 19.3 mmoll (-3.0-3.0); BLOOD TYPE ARTERIAL; DRAW SITE R RADIAL; O2(CT) 14.3 mL/dL (15.0-23.0); PO2(98.6) 90 mmHg (60-100); SAMPLE BLOOD; SAO2 98.2 % (95.0-100.0); SRATE 8 BPM; THB 10.6 g/dL (11.5-17.4); TVOL 700 mL; pH(98.6) 7.47 (7.35-7.45)
[2016-08-13 04:34] LABS: MODALITY VENTILATOR; PCO2(98.6) 63 mmHg (35-45)
[2016-08-13] MEDS: SOLU-MEDROL IV SCH ×4 (05:12→22:15)
[2016-08-13] MEDS: LEVAQUIN 750 MG/D5W 150 ML IV SCH (05:12)
[2016-08-13 06:01] LABS: MANUAL DIFF NEEDED? NO
[2016-08-13 06:09] LABS: BASO% 0.1 % (0.0-0.8); HEMATOCRIT 36.8 % (37.0-47.0); HEMOGLOBIN 11.7 g/dL (12.0-16.0); IMM GRAN# 0.04 X1000 (0.0-0.04); IMM GRAN% 0.5 % (0.0-0.5); LYMPH# 0.82 X1000 (1.2-3.4); LYMPH% 10.8 % (20.5-51.1); MCH 31.1 PG (27-31); MCHC 31.8 g/dL (33-37); MCV 97.9 FL (81-99); MONO# 0.78 X1000 (0.11-0.59); MONO% 10.2 % (1.7-9.3); MPV 9.7 FL (7.4-10.4); NEUT% 78.4 % (42.2-75.2); PLT 191 X1000 (130-400); RBC 3.76 XMIL (4.2-5.4)
[2016-08-13 06:31] LABS: AGAP 9; BUN 23 mg/dL (8-22); CALCIUM 8.5 mg/dL (8.8-10.2); CHLORIDE 98 mmol/L (98-107); COSMO 290; POTASSIUM 4.5 mmol/L (3.5-5.1); SODIUM 142 mmol/L (136-145); TCO2 35 mmol/L (25-35)
--- NOTE | 2016-08-13 07:58 | Diag Imaging Result Document ---
PROCEDURE NAME: CHEST-PORTABLE - 08/13/2016 SINGLE FRONTAL RADIOGRAPH OF THE CHEST.: COMPARISON: 08/12/2016. FINDINGS: ET tube is stable. NG tube projects below the diaphragm and out of the field of view. No new consolidations are identified. There may be very slight increased central lung markings suggesting possible mild pulmonary venous congestion. No definite effusion is identified. Cardiac silhouette is stable. IMPRESSION: Essentially stable chest but, perhaps, very slight increased central vasculature suggesting pulmonary venous congestion.
[2016-08-13] MEDS: SODIUM CHLORIDE 0.9% INJ SCH ×2 (08:20→20:16)
[2016-08-13] MEDS: PROTONIX IV SCH ×2 (08:20→20:16)
[2016-08-13] MEDS: APRESOLINE IV PRN (08:20)
[2016-08-13 09:24] LABS: ALLEN TEST YES; BLOOD TYPE ARTERIAL; DRAW SITE R RADIAL; METHB 1.6 % (0.0-1.5); O2(CT) 18.1 mL/dL (15.0-23.0); PO2(98.6) 80 mmHg (60-100); SAMPLE BLOOD; SAO2 97.5 % (95.0-100.0); THB 13.7 g/dL (11.5-17.4)
[2016-08-13 09:27] LABS: MODALITY VENTILATOR
[2016-08-13 09:30] LABS: PCO2(98.6) 68 mmHg (35-45)
[2016-08-13] MEDS: HALDOL IV PRN (09:46)
[2016-08-13] MEDS: NS 1,000 ML IV SCH ×2 (10:14→22:15)
[2016-08-13 11:57] LABS: ALLEN TEST YES; BE 16.8 mmoll (-3.0-3.0); BLOOD TYPE ARTERIAL; DRAW SITE R RADIAL; METHB 1.7 % (0.0-1.5); O2(CT) 15.9 mL/dL (15.0-23.0); PO2(98.6) 63 mmHg (60-100); SAMPLE BLOOD; SAO2 94.9 % (95.0-100.0); THB 12.4 g/dL (11.5-17.4); pH(98.6) 7.45 (7.35-7.45)
[2016-08-13 11:58] LABS: MODALITY VENTILATOR
[2016-08-13 12:05] LABS: PCO2(98.6) 63 mmHg (35-45)
[2016-08-13] MEDS ORDERED: APRESOLINE IV SCH (14:15)
--- NOTE | 2016-08-13 14:45 | PROGRESS NOTE ---
DATE: 08/13/2016 SUBJECTIVE: This patient at the moment of my evaluation was on mechanical ventilation, no sedation, and she was awake and she was following commands. She was able to answer questions with yes and no answers. OBJECTIVE: Vital Signs: Temperature 98.7 degrees, pulse 100, respiratory rate 26, blood pressure 198/122, O2 saturation of 91% on mechanical ventilation 40% oxygen flow. HEENT: Head normocephalic. No trauma. PERRLA. Neck: Supple. No JVD. No masses. Central trachea. Chest: Prolonged expiratory phase. No wheezing or rales. Cardiovascular: Distant heart sounds. RRR. No murmurs. Abdomen: Soft, nontender, nondistended. No hepatosplenomegaly. Extremities: No edema. No clubbing. No cyanosis. She has a few red small lesions, petechial-like lesions at the level of the extremities, but this looks chronic. Compared with the admission they are about the same. We will continue to monitor. Neurological: The patient is still on mechanical ventilation without sedation and following commands. LABORATORY: WBC 7.6, hemoglobin 11.7, hematocrit 36.8, platelets 191,000. Sodium 142, potassium 4.5, chloride 98, bicarbonate 35, BUN 23, creatinine 0.4, glucose 157, calcium 8.5. ASSESSMENT AND PLAN: 1. Acute on chronic hypercapnic and hypoxemic respiratory failure. We will continue for now with full mechanical ventilation support, Pulmonary Department is doing a weaning trial. We will continue to monitor. This patient was at the moment of my evaluation alert and she was following commands. 2. Hyponatremia. Resolved. 3. Hypertension, today I will add hydralazine IV as scheduled, the blood pressure has been consistently high. 4. History of bipolar disorder, schizophrenia, psychogenic polydipsia. Aware. Continue to monitor. 5. History of seizure disorder. Continue with the same management. 6. Anxiety disorder. Aware. 7. Hypomagnesemia. Resolved. 8. History of chronic obstructive pulmonary disease and multiple psychiatric disorders. For now we are going to keep this patient intubated. Probably she will be extubated later this afternoon or tomorrow, Pulmonary Department is following this patient. CRITICAL CARE TIME: 30 minutes.
[2016-08-13] MEDS: APRESOLINE IV SCH ×2 (15:01→23:17)
[2016-08-14] MEDS: HALDOL IV PRN ×2 (00:12→20:06)
[2016-08-14] MEDS ORDERED: CALMOSEPTINE OINTMENT TOP PRN (03:10)
[2016-08-14] MEDS: ZOSYN 3.375 GM/NS 50 ML IV SCH ×2 (03:18→08:52)
[2016-08-14] MEDS: DUONEB (A & A) INH SCH ×2 (03:36→07:30)
[2016-08-14] MEDS: SOLU-MEDROL IV SCH ×2 (04:36→16:50)
[2016-08-14 04:44] LABS: ALLEN TEST YES; BE 16.8 mmoll (-3.0-3.0); BLOOD TYPE ARTERIAL; DRAW SITE R RADIAL; METHB 1.7 % (0.0-1.5); PO2(98.6) 68 mmHg (60-100); SAMPLE BLOOD; SAO2 95.3 % (95.0-100.0); pH(98.6) 7.47 (7.35-7.45)
[2016-08-14 04:45] LABS: MODALITY CANNULA
[2016-08-14 04:46] LABS: PCO2(98.6) 60 mmHg (35-45)
[2016-08-14] MEDS: LEVAQUIN 750 MG/D5W 150 ML IV SCH (05:03)
[2016-08-14 05:16] LABS: MANUAL DIFF NEEDED? NO
[2016-08-14 05:36] LABS: BASO% 0.6 % (0.0-0.8); EOS# 0.01 X1000 (0.0-0.7); EOS% 0.1 % (0.0-10.0); HEMATOCRIT 43.7 % (37.0-47.0); HEMOGLOBIN 13.9 g/dL (12.0-16.0); IMM GRAN# 0.17 X1000 (0.0-0.04); IMM GRAN% 1.7 % (0.0-0.5); LYMPH# 0.99 X1000 (1.2-3.4); LYMPH% 9.8 % (20.5-51.1); MCHC 31.8 g/dL (33-37); MCV 97.3 FL (81-99); MONO# 0.85 X1000 (0.11-0.59); MONO% 8.4 % (1.7-9.3); MPV 10.4 FL (7.4-10.4); NEUT% 79.4 % (42.2-75.2); PLT 62 X1000 (130-400); RBC 4.49 XMIL (4.2-5.4)
[2016-08-14] MEDS: APRESOLINE IV SCH ×3 (06:12→23:13)
[2016-08-14 06:19] LABS: AGAP 14; ALBUMIN 2.8 g/dL (3.5-5.0); ALKALINE PHOSPHATASE 56 U/L (32-104); BUN 13 mg/dL (8-22); CALCIUM 8.9 mg/dL (8.8-10.2); CHLORIDE 96 mmol/L (98-107); COSMO 278; GOT 37 U/L (10-30); GPT 24 U/L (10-36); POTASSIUM 5.5 mmol/L (3.5-5.1); SODIUM 139 mmol/L (136-145); TCO2 29 mmol/L (25-35); TOTAL BILIRUBIN 0.49 mg/dL (0.20-1.00); TOTAL PROTEIN 6.1 g/dL (6.3-8.3)
--- NOTE | 2016-08-14 07:50 | Diag Imaging Result Document ---
PROCEDURE NAME: CHEST-PORTABLE - 08/14/2016 PORTABLE CHEST X-RAY: COMPARISON: 08/13/2016. FINDINGS: The patient has been extubated. There is slight worsening in the right lower lobe infiltrate. Otherwise, stable cardiomegaly and pulmonary vascular congestion. There is probably some ill-defined pulmonary edema. IMPRESSION: Patient extubated. Worsening infiltrate in the right lower lobe. Stable pulmonary edema.
[2016-08-14] MEDS ORDERED: CARDIZEM IV ONE (07:53)
[2016-08-14] MEDS: PROTONIX IV SCH ×2 (08:51→20:06)
[2016-08-14] MEDS: SODIUM CHLORIDE 0.9% INJ SCH ×2 (08:51→20:06)
[2016-08-14] MEDS ORDERED: LASIX IV SCH (09:00)
--- NOTE | 2016-08-14 11:15 | PROGRESS NOTE ---
DATE: 08/14/2016 SUBJECTIVE: This patient was extubated yesterday. She is breathing fine today. She is not complaining of shortness of breath. She actually wants to go against medical advice but this patient is presenting at this moment with atrial fibrillation and RVR. She will receive 1 dose of diltiazem IV and then we will consult cardiology department. Also, this patient probably is really weak and because of physical deconditioning, I will consult physical therapy. OBJECTIVE: Vital Signs: Temperature 97.8 degrees, pulse 160, respiratory rate 20, blood pressure on the monitor 119/63, oxygen saturation 100% on nasal cannula. HEENT: Head normocephalic. No trauma. PERRLA. Poor dentition. Neck: Supple. No JVD. No masses. Central trachea. Chest: Prolonged expiatory phase. No wheezing. Scattered rales, mostly at the bases and rhonchi at the right lower lung. Cardiovascular: Irregularly irregular rate. No murmurs. Extremities: No edema. No clubbing. No cyanosis. She has a few red small lesions, petechial like. Compared with the admission, they are about the same. Neurological Examination: The patient is alert, awake. Following commands. Oriented x3. No signs of these moment of any psychiatric problems but she states that she wants to go home. Laboratory: WBC 10, hemoglobin 13.9, hematocrit 43.7, platelets 62,000. Sodium 139, potassium 5.5, chloride 96, bicarbonate 29, BUN 13, creatinine 0.4, glucose 112, calcium 8.9. Albumin 2.8. ASSESSMENT AND PLAN: 1. Acute on chronic hypercapnic and hypoxemic respiratory failure. This patient was extubated yesterday. Today, she is not having any breathing problems. She is still hypercapnic. She is not having any respiratory distress. 2. Atrial fibrillation with rapid ventricular response. This patient will receive diltiazem one time and cardiology department has been consulted. As per the patient, she never had this kind of problem but I checked back on her discharge summaries and 1 of the diagnosis is atrial fibrillation. As per the patient, she is not on any anticoagulation at home or treatment for this. 3. Thrombocytopenia. For the past 4 or 5 days, she has been with a normal platelet count. Today, she presented with a platelet count of 62,000. I wanted to repeat this laboratory to corroborate this information but the patient now is refusing any lab work. 4. Hypernatremia. We will continue to monitor. No treatment for now. 5. Hypertension. She has been on hydralazine intravenous scheduled. The blood pressure has been high during the night but today, she is having a normal blood pressure with atrial fibrillation plus rapid ventricular response. 6. History of bipolar disorder, schizophrenia, psychogenic polydipsia, anxiety disorder. Aware. She is not presenting at this moment any signs or symptoms all psychogenic problems but it is too soon to predict any psychiatric problems. 7. History of seizure disorder. Continue with the same management. 8. Hypomagnesemia. I asked again for magnesium but she is refusing the workup. 9. History of chronic obstructive pulmonary disease. I will continue with steroids. Because her platelet count is low, I will stop the Zosyn and I will continue only with levofloxacin. Pulmonary department is following this patient. CRITICAL CARE TIME: 30 minutes.
--- NOTE | 2016-08-14 11:47 | CONSULTATION ---
DATE OF CONSULTATION: 08/14/2016 INDICATION: Atrial fibrillation. HISTORY OF PRESENT ILLNESS: Ms. Valentin is a patient with a history of bipolar disorder, COPD, and possible atrial fibrillation. She is a 55-year-old, white female who presented on the with complaints of nausea, vomiting, and diarrhea. She apparently lives in some sort of an assisted living or longterm and possibly had a syncopal type episode. The patient is an extremely poor historian. Seems to be fixated on going home and eating. I cannot get her to come off of that line of thought. Apparently, she had been having symptoms of nausea, vomiting, and diarrhea for around 2 weeks on presentation. She was found to have a sodium of 124. She had a normal chest x-ray. She was admitted for further evaluation. She was placed on IV fluids. Apparently today, she was noted to be in atrial fibrillation, rates as high as the 180s. Presently, she is asymptomatic from that, not complaining of any heart racing, fluttering in her chest, chest pain, or shortness of breath. PAST MEDICAL HISTORY: 1. Significant for schizophrenia. 2. Bipolar disorder. 3. Seizure disorder. 4. COPD. 5. Possible atrial fibrillation but I do not have any EKGs to support this. SOCIAL HISTORY: She lives at [facility]. She smokes around a pack a day. No illicit drugs. ALLERGIES: Aspirin and penicillin per chart review. REVIEW OF SYSTEMS: Unable to obtain secondary to the patient's fixation on eating as well as wanting to go home. PHYSICAL EXAMINATION: Vital Signs: She is afebrile. Her current heart rates at the time my examination were in the 160s-180s, blood pressure 161/91. She has been afebrile during the course of this hospitalization. General: No acute distress. HEENT: Oropharynx is moist. She has extremely poor dentition. Eye examination shows pink conjunctivae and white sclerae. Neck: Examination shows no obvious thyromegaly or thyroid tenderness. Cardiovascular: She is in a regular rhythm that is extremely tachycardic. Telemetry shows a narrow complex tachycardia at a rate of around 180 beats per minute. Extremities: No lower extremity edema. Chest: Examination sounds clear. No increased work of breathing. Abdomen: Soft, nontender, nondistended. No obvious organomegaly. Skin Examination: Warm and dry throughout without any rashes PERTINENT DATA: She had a chest x-ray demonstrating worsening infiltrate in the right lower lobe with stable pulmonary edema. EKG this morning shows atrial fibrillation and rapid ventricular response. She does have some ST-segment depression in the lateral leads. Her previous EKG during this hospitalization demonstrated sinus rhythm, rate of 74 beats per minute. No signs of ischemic changes other than an unusual biphasic T-wave isolated in V3 alone. Her laboratory data shows a white count of 10.1, hematocrit is 43.7, her platelet count is 62,000 which has dropped from 191,000 yesterday. Her ABG shows a pH of 7.47, pCO2 of 60, PO2 of 68. Her sodium is 139, potassium is 5.5, BUN 13, and creatinine 0.4. Magnesium level yesterday was 1.8. ASSESSMENT: New onset atrial fibrillation. PLAN: We will start the patient on diltiazem infusion. I will not check an echocardiogram, considering she just had 1 done 5 days ago. This demonstrated a normal EF of 60-65. Moderate enlargement of the right ventricle was noted on that study. We will check a TSH in the morning. I would not proceed with anticoagulation at present secondary to her current issue with platelets. She is not currently on any sort of heparin type products.
[2016-08-14 11:54] LABS: INR 1.19; PROTIME 12.1 Seconds (9.2-11.7); PTT 20.3 Seconds (22.0-36.0)
[2016-08-14] MEDS: CARDIZEM 100 MG/NS 100 ML IV SCH ×2 (12:26→23:16)
[2016-08-14] MEDS: NS 1,000 ML IV SCH (14:58)
[2016-08-14] MEDS: COGENTIN PO SCH (20:05)
[2016-08-14] MEDS: DEPAKOTE ER PO SCH (20:06)
[2016-08-15] MEDS ORDERED: XANAX PO ONE
[2016-08-15] MEDS: NS 1,000 ML IV SCH ×2 (01:42→16:53)
[2016-08-15] MEDS: SOLU-MEDROL IV SCH ×2 (04:44→17:28)
[2016-08-15 05:36] LABS: ALLEN TEST YES; BE 11.3 mmoll (-3.0-3.0); BLOOD TYPE ARTERIAL; DRAW SITE R RADIAL; METHB 1.3 % (0.0-1.5); O2(CT) 24.4 mL/dL (15.0-23.0); PO2(98.6) 69 mmHg (60-100); SAMPLE BLOOD; pH(98.6) 7.39 (7.35-7.45)
[2016-08-15 05:39] LABS: MODALITY CANNULA; PCO2(98.6) 67 mmHg (35-45)
[2016-08-15] MEDS: LEVAQUIN 750 MG/D5W 150 ML IV SCH (05:54)
[2016-08-15] MEDS: DUONEB (A & A) INH SCH ×4 (06:01→07:46)
[2016-08-15 06:34] LABS: MANUAL DIFF NEEDED? NO
[2016-08-15 06:46] LABS: BASO% 0.1 % (0.0-0.8); EOS# 0.05 X1000 (0.0-0.7); EOS% 0.5 % (0.0-10.0); HEMATOCRIT 45.3 % (37.0-47.0); HEMOGLOBIN 14.4 g/dL (12.0-16.0); IMM GRAN# 0.11 X1000 (0.0-0.04); IMM GRAN% 1.1 % (0.0-0.5); LYMPH# 2.07 X1000 (1.2-3.4); LYMPH% 20.8 % (20.5-51.1); MCH 30.3 PG (27-31); MCHC 31.8 g/dL (33-37); MCV 95.4 FL (81-99); MONO# 0.85 X1000 (0.11-0.59); MONO% 8.5 % (1.7-9.3); MPV 9.3 FL (7.4-10.4); PLT 190 X1000 (130-400); RBC 4.75 XMIL (4.2-5.4)
[2016-08-15 06:59] LABS: AGAP 11; BUN 17 mg/dL (8-22); CALCIUM 8.6 mg/dL (8.8-10.2); CHLORIDE 98 mmol/L (98-107); COSMO 282; POTASSIUM 3.4 mmol/L (3.5-5.1); SODIUM 141 mmol/L (136-145); TCO2 32 mmol/L (25-35)
--- NOTE | 2016-08-15 07:37 | Diag Imaging Result Document ---
PROCEDURE NAME: CHEST-PORTABLE - 08/15/2016 SINGLE FRONTAL RADIOGRAPH OF THE CHEST: COMPARISON: 08/14/2016. FINDINGS: The mild right lower lobe infiltrate has improved slightly. No new consolidations are identified. Cardiac silhouette is stable. IMPRESSION: Slight improvement of right basilar infiltrate.
[2016-08-15] MEDS: APRESOLINE IV SCH ×3 (08:28→23:18)
[2016-08-15] MEDS: LASIX PO SCH (08:28)
[2016-08-15] MEDS: PROTONIX IV SCH ×2 (08:29→21:10)
[2016-08-15] MEDS: SODIUM CHLORIDE 0.9% INJ SCH ×2 (08:29→21:10)
--- NOTE | 2016-08-15 09:32 | EKG Report ---
Test Performed on : 08/14/2016 07:45:52 AM Test Reason : ICU. Not ordered in [place] Blood Pressure : / mmHG Vent. Rate : 174 BPM Atrial Rate : 170 BPM P-R Int : 000 ms QRS Dur : 074 ms QT Int : 254 ms P-R-T Axes : 000 088 -88 degrees QTc Int : 432 ms Atrial fibrillation. with rapid ventricular response. Marked ST abnormality, possible lateral subendocardial injury Abnormal ECG When compared with ECG of 14-AUG-2016 07:41, (Unconfirmed) Previous ECG has undetermined rhythm, needs review Confirmed by Mary REDDY, Wily Pandya ([id number]) on 08/17/2016 1:13:01 PM
--- NOTE | 2016-08-15 10:37 | PROGRESS NOTE ---
DATE: 08/15/2016 SUBJECTIVE: Patient reports breathing fine. No difficulty in breathing. No chest pain. Patient is sitting comfortably in the chair. OBJECTIVE: Vital Signs: Temperature 98.4 degrees, heart rate 77, respiratory rate 17, blood pressure 164/77, O2 saturation 95% on 2 L nasal cannula. General Examination: This is a 55-year- old female lying in bed, in no acute distress. HEENT: Head is normocephalic, atraumatic. Anicteric sclerae. Pale conjunctivae. Mucous membranes moist. Poor dentition. Neck: Supple. No JVD noted. No carotid bruits. No lymphadenopathy. No thyromegaly. Cardiovascular: S1, S2 heard. Irregularly irregular. No murmurs, gallops, or rubs. Respiratory: Clear bilaterally to auscultation. Prolonged expiatory phase. No wheezing or crackles noted. Not using any accessory muscles or having work of breathing. Abdomen: Soft. Nontender to palpation. Bowel sounds present. No organomegaly. Extremities: No clubbing, cyanosis, or edema. Peripheral pulses present in both legs. Neurological: Patient alert and oriented x3. Able to move 4 extremities. Cranial nerves 2 through 12 grossly normal. LABORATORY DATA: White cell count 9.95, hemoglobin 14.4, hematocrit 45.3, platelets 190,000. ABG shows pH 7.39, pCO2 67, PO2 69. BMP unremarkable except potassium 3.4. ASSESSMENT AND PLAN: 1. Acute on chronic hypercapnic and hypoxemic respiratory failure. Patient is now using 2 L of oxygen by nasal cannula and patient is doing good. The patient was extubated 2 days ago. We will continue with the same management. 2. Atrial fibrillation with rapid ventricular response. Patient is still on Cardizem drip. Cardiology has evaluated this patient. They are not going to repeat the echo because it was done for 5 days ago. At this point, we will continue with the same management. The anticoagulation was not started because of thrombocytopenia which I think was spurious because the platelets today are completely normal. We will leave that decision to cardiology to start anticoagulation or not. 3. Thrombocytopenia, resolved. 4. Hyponatremia. Definitely that condition is improving. 5. Hypertension. The blood pressure is a little bit high today. Will continue watching this patient overnight and we will continue checking blood pressure overnight. 6. History of bipolar disorder, schizophrenia, psychogenic polydipsia, anxiety disorder. This condition is stable. 7. Seizure disorder. We will continue with the same management. 8. History of chronic obstructive pulmonary disease. At this point, we will continue with the antibiotics, in this case Levaquin. Because of the suspicion for worsening thrombocytopenia, Zosyn was stopped but I think because the white cell count is normal we will continue holding that medication. 9. Physical deconditioning. Physical therapy has been consulted. [facility]ITALJaime
--- NOTE | 2016-08-15 17:19 | PROGRESS NOTE ---
DATE: 08/15/2016 SUBJECTIVE: Ms. Valentin seems a little bit better today. She seems more focused. She is alert. Able to answer all questions. PHYSICAL EXAMINATION: Vital signs: She is afebrile. Heart rate of 82. Currently in sinus rhythm. Blood pressure 129/82. General: No acute distress. Cardiovascular: She is in a regular rate and rhythm. She has no murmurs. No S3. No lower extremity edema. Chest: Has mild rales on the right base. No increased work of breathing. Abdomen: Soft, nontender. PERTINENT DATA: Her white count is 9.9, hematocrit 45.3, platelet count 190,000. ABG shows a pH of 7.39, pCO2 of 67, PO2 of 69, sodium 141, potassium 3.4, BUN 17, creatinine 0.3. ASSESSMENT: New onset atrial fibrillation. PLAN: TSH is normal. She had an echocardiogram performed on the that demonstrated a preserved ejection fraction with no significant valvular abnormalities. We will change her over to p.o. diltiazem and stop the IV diltiazem.
[2016-08-15] MEDS: CARDIZEM PO SCH (17:28)
[2016-08-15] MEDS: CARDIZEM 100 MG/NS 100 ML IV SCH (18:04)
[2016-08-15] MEDS: DEPAKOTE ER PO SCH (21:09)
[2016-08-15] MEDS: COGENTIN PO SCH (21:09)
[2016-08-16] MEDS: HALDOL IV PRN (01:08)
[2016-08-16] MEDS: CARDIZEM PO SCH ×3 (01:08→09:01)
[2016-08-16] MEDS: NS 1,000 ML IV SCH (03:50)
[2016-08-16] MEDS: SOLU-MEDROL IV SCH (04:16)
[2016-08-16 04:24] LABS: MANUAL DIFF NEEDED? NO
[2016-08-16 04:27] LABS: BASO% 0.1 % (0.0-0.8); HEMATOCRIT 41.9 % (37.0-47.0); HEMOGLOBIN 13.7 g/dL (12.0-16.0); IMM GRAN# 0.09 X1000 (0.0-0.04); IMM GRAN% 0.9 % (0.0-0.5); LYMPH# 1.25 X1000 (1.2-3.4); LYMPH% 12.1 % (20.5-51.1); MCH 30.9 PG (27-31); MCHC 32.7 g/dL (33-37); MCV 94.4 FL (81-99); MONO# 0.68 X1000 (0.11-0.59); MONO% 6.6 % (1.7-9.3); MPV 9.1 FL (7.4-10.4); NEUT% 80.3 % (42.2-75.2); PLT 179 X1000 (130-400); RBC 4.44 XMIL (4.2-5.4)
[2016-08-16 04:43] LABS: ALLEN TEST YES; BE 12.3 mmoll (-3.0-3.0); BLOOD TYPE ARTERIAL; DRAW SITE R RADIAL; METHB 1.5 % (0.0-1.5); O2(CT) 19.5 mL/dL (15.0-23.0); PO2(98.6) 111 mmHg (60-100); SAMPLE BLOOD; SAO2 99.5 % (95.0-100.0); THB 14.4 g/dL (11.5-17.4); pH(98.6) 7.41 (7.35-7.45)
[2016-08-16 04:44] LABS: MODALITY CANNULA
[2016-08-16 04:45] LABS: PCO2(98.6) 63 mmHg (35-45)
[2016-08-16 04:53] LABS: AGAP 7; BUN 16 mg/dL (8-22); CALCIUM 8.3 mg/dL (8.8-10.2); CHLORIDE 99 mmol/L (98-107); COSMO 283; POTASSIUM 3.7 mmol/L (3.5-5.1); SODIUM 140 mmol/L (136-145); TCO2 34 mmol/L (25-35)
[2016-08-16] MEDS: DUONEB (A & A) INH SCH ×4 (04:53→11:08)
[2016-08-16] MEDS: LEVAQUIN 750 MG/D5W 150 ML IV SCH (05:24)
--- NOTE | 2016-08-16 06:40 | Diag Imaging Result Document ---
PROCEDURE NAME: CHEST-PORTABLE - 08/16/2016 PORTABLE CHEST: COMPARISON: 08/15/2016. FINDINGS: The lungs are well expanded. The heart is not enlarged. The vessels are not distended. No pneumonia. No pleural effusions identified. There is a granuloma in the left base. There are calcified left hilar lymph nodes. The vasculature is slightly less distended than on the prior exam. IMPRESSION: Slight interval improvement.
[2016-08-16] MEDS: PROTONIX IV SCH (08:19)
[2016-08-16] MEDS: APRESOLINE IV SCH (08:19)
[2016-08-16] MEDS: SODIUM CHLORIDE 0.9% INJ SCH (08:19)
[2016-08-16] MEDS: LASIX PO SCH (09:00)
[2016-08-16] MEDS ORDERED: PRINIVIL PO SCH (09:30)
[2016-08-16] MEDS ORDERED: CARDIZEM CD PO SCH (10:00)
[2016-08-16 11:56] VITALS: BP 133/67
[2016-08-17] MEDS ORDERED: SOLU-MEDROL IV SCH (09:00)
--- NOTE | 2016-08-17 10:32 | DISCHARGE SUMMARY ---
ADMISSION DATE: 08/08/2016 DISCHARGE DATE: 08/16/2016 CONSULTATIONS: 1. Dr. Cristóbal Drummond with pulmonology. 2. Dr. Micheal Talbot with cardiology. PERTINENT PROCEDURES: 1. Head CT showed no hemorrhage, mild microvascular ischemic changes, mild sinusitis. 2. Chest x-ray showed cardiomegaly and pulmonary vascular congestion. 3. Echocardiogram showed normal left ventricular systolic function. Moderately enlarged right ventricle. No valvular abnormality. No diastolic dysfunction. 4. On 08/14/2016, EKG showed atrial fibrillation with rapid ventricular response. DISCHARGE DIAGNOSES: 1. Acute on chronic hypercapnic and hypoxemic respiratory failure, stable. 2. Atrial fibrillation with rapid ventricular response. Initially on Cardizem drip. It has resolved. Patient will be going on oral Cardizem. 3. Thrombocytopenia, resolved. 4. Hyponatremia, improving. 5. Hypertension. Continue home medications. 6. Bipolar schizophrenia, psychogenic polydipsia, anxiety disorder, stable. 7. Seizure disorder. Continue with Depakote. 8. Chronic obstructive pulmonary disease exacerbation. Patient to finish a full course of intravenous antibiotics. 9. Physical deconditioning. The patient worked with physical therapy. She is back to her baseline. HOSPITAL COURSE: Briefly, Ms. Valentin is a 55-year-old female with a history of bipolar schizophrenia, COPD and new onset atrial fibrillation. ED report that patient's balance had been off for about 7 days after coming back from a visit with family members. She states that nausea, vomiting and diarrhea began the night before her admission. During her interview, it went from the night before to 2 weeks ago, so they were really unsure when her symptoms actually started and how long they had been present. Patient's sodium was found to be 124. Chest x-ray revealed nothing obvious, nothing acute. The patient was initially admitted to the hospital and placed on telemetry for hyponatremia, nausea, vomiting and diarrhea. Head CT did not show anything acute. The next day after admission, the patient did have an eventful night. She had been talkative, but completely confused, disoriented. Could not carry on a train of thought or any plan of action. Sometime in the middle of night, she became short of breath, disoriented, having more trouble breathing. Was placed on BiPAP. In the a.m. she was somewhat somnolent, difficult to arouse, was not following any commands. She was transferred from [place] to [facility] because of pulmonary coverage. The patient's pCO2 did continue to rise. She was intubated on full ventilatory support, continued on IV antibiotics as well as bronchodilators, and initiated on steroids and a PPI. The patient spent several days in the ICU at [facility] on the ventilator. The patient was extubated on I believe 08/13/2016. She subsequently went into atrial fibrillation with rapid ventricular response. Cardiology was consulted. She was initiated on a Cardizem drip. They did not proceed with anticoagulation secondary to her current issues with her thrombocytopenia. Patient was transitioned from IV Cardizem to p.o. Cardizem. Physical therapy was consulted, worked with the patient to get her stronger. The patient was able to move to the floor. However, unfortunately due to the bed holds the patient remained in the ICU. The patient is appropriate for discharge back to [facility] today. VITAL SIGNS: Temperature is 98.4 degrees, heart rate 90, respirations 20, blood pressure was 174/80, O2 is 93%. DISCHARGE DIET: Regular. DISCHARGE MEDICATIONS: 1. Cogentin 1 mg p.o. b.i.d. 2. Depakote ER 1000 mg p.o. at bedtime. 3. Cardizem CD 180 mg p.o. daily. 4. Lasix 40 mg p.o. daily. 5. Medrol Dosepak as directed. 6. Prinivil 10 mg p.o. b.i.d. FOLLOW UP: Patient is being discharged back to [facility]. She is to follow up with Dr. Micheal Talbot in 2 weeks at the [facility]. She will need to follow up with Dr. Triana on 08/20/2016 at 2 p.m., as well as her primary care physician, Cristóbal Singh, in 7-10 days. Patient can return to the ED for any worsening of symptoms. DISCHARGE TIME: Greater than 30 minutes. Dictated by KYLE Dickey for Riky De Luna MD
== END 2016-08-16 17:01 | disposition home or self-care (01) | DRG 640 ==
LOC: ED 08:09 → ICU 12:21 → 3N 08-16 13:00
PROVIDERS: ATTEND Internal Medicine
PROC: 5A1945Z Respiratory Ventilation, 24-96 Consecutive Hours (ICD-10-PCS; principal; 2016-08-09)
PROC: 0BH17EZ Insertion of Endotracheal Airway into Trachea, Via Natural or Artificial Opening (ICD-10-PCS; 2016-08-09)
PROC: 3E0G76Z Introduction of Nutritional Substance into Upper GI, Via Natural or Artificial Opening (ICD-10-PCS; 2016-08-10)
DX: E87.1 Hypo-osmolality and hyponatremia (principal); J96.01 Acute respiratory failure with hypoxia; J14 Pneumonia due to Hemophilus influenzae; R56.9 Unspecified convulsions; D69.6 Thrombocytopenia, unspecified; J44.0 Chronic obstructive pulmonary disease with (acute) lower respiratory infection; E83.42 Hypomagnesemia; J96.22 Acute and chronic respiratory failure with hypercapnia; J44.1 Chronic obstructive pulmonary disease with (acute) exacerbation; I48.91 Unspecified atrial fibrillation; R63.1 Polydipsia; F31.9 Bipolar disorder, unspecified; F20.9 Schizophrenia, unspecified; R11.2 Nausea with vomiting, unspecified; R19.7 Diarrhea, unspecified; F41.9 Anxiety disorder, unspecified; F17.210 Nicotine dependence, cigarettes, uncomplicated; L98.8 Other specified disorders of the skin and subcutaneous tissue; I10 Essential (primary) hypertension; Z23 Encounter for immunization; Z79.899 Other long term (current) drug therapy; Z83.3 Family history of diabetes mellitus; Z82.49 Family history of ischemic heart disease and other diseases of the circulatory system
CPT/HCPCS: 31500; 36415; 70450; 71010; 80048; 80053; 80061; 80165; 81001; 82140; 82150; 82550; 82570; 82805; 82948; 83605; 83615; 83690; 83735; 83874; 83880; 83930; 83935; 84100; 84300; 84439; 84443; 84484; 85025; 85027; 85379; 85610; 85730; 87040; 87070; 87077; 87184; 87205; 89220; 90732; 93005; 93010; 93306; 94003; 94640; 94660; 94762; 96360; 96361; C9113; G0480; J0131; J0330; J0360; J1630; J1940; J2060; J2405; J2543; J2920; J2930; J3475; J7030; Q2038; 80324; 80345; 80346; 80349; 80353; 80358; 80361; 80365; 83992; 97110-GP; 97116-GP; 97530-GP; S0164

== ENCOUNTER 2016-08-27 14:35 | Inpatient (IN) ==
[2016-08-27] MEDS ORDERED: NITROGLYCERIN SL PRN (15:58)
[2016-08-27] MEDS ORDERED: ASPIRIN PO STA (15:58)
[2016-08-27 16:09] LABS: MANUAL DIFF NEEDED? NO
[2016-08-27 16:11] LABS: BASO% 0.4 % (0.0-0.8); EOS# 0.06 X1000 (0.0-0.7); EOS% 1.1 % (0.0-10.0); HEMATOCRIT 44.8 % (37.0-47.0); HEMOGLOBIN 14.3 g/dL (12.0-16.0); LYMPH# 1.66 X1000 (1.2-3.4); LYMPH% 30.7 % (20.5-51.1); MCH 31.3 PG (27-31); MCHC 31.9 g/dL (33-37); MONO# 0.52 X1000 (0.11-0.59); MONO% 9.6 % (1.7-9.3); MPV 8.7 FL (7.4-10.4); NEUT% 58.2 % (42.2-75.2); PLT 268 X1000 (130-400); RBC 4.57 XMIL (4.2-5.4)
[2016-08-27 16:18] LABS: INR 1.13; PTT 24.3 Seconds (22.0-36.0)
[2016-08-27 16:33] LABS: AGAP 8; ALBUMIN 3.3 g/dL (3.5-5.0); ALKALINE PHOSPHATASE 77 U/L (32-104); BUN 4 mg/dL (8-22); CALCIUM 8.7 mg/dL (8.8-10.2); CHLORIDE 96 mmol/L (98-107); CK PROFILE 17 U/L (24-173); COSMO 274; GOT 12 U/L (10-30); GPT 8 U/L (10-36); MAGNESIUM 1.8 mg/dL (1.5-2.7); POTASSIUM 4.3 mmol/L (3.5-5.1); SODIUM 138 mmol/L (136-145); TCO2 34 mmol/L (25-35); TOTAL BILIRUBIN 0.25 mg/dL (0.20-1.00); TOTAL PROTEIN 6.7 g/dL (6.3-8.3)
--- NOTE | 2016-08-27 16:34 | PROVIDER DOCUMENTATION ---
HPI-General Adult - General Source: patient - History of Present Illness -Gen Adult Nature of Presenting Problems: Sent to ER by pcp for further evaluation due to arterial blood gas. Reports needs home o2 and the computer aided design technician told her they were bad. Pt reports was a heavy smoker and is now having dyspnea with minimal exertion. Quality of Pain: reports: none Severity: reports: severe Onset/Duration: reports: this morning Timing: reports: still present Similar Symptoms Previously?: Yes Recently seen or treated by another doctor?: Yes <Lisa Francis - Last Filed: 08/27/16 17:49> <Donita Villeda - Last Filed: 08/27/16 19:12> - General Chief Complaint: Shortness of Breath Stated Complaint: SENT BY MD FOR FURTHER EVAL Time Seen by Provider: 08/27/16 15:02 Allergies/Adverse Reactions: Patient Allergies Allergy/AdvReac Type Severity Reaction Status Date / Time No Known Allergies Allergy Verified 08/27/16 15:33 Home Medications: Home Medication List Medication Instructions Recorded Confirmed Last Taken Type Benztropine [Cogentin] 1 mg PO BID 08/09/15 08/27/16 08/27/16 07:00 History Divalproex E.r. [Depakote ER] 1,000 mg PO HS 08/08/16 08/27/16 08/26/16 20:00 History Diltiazem C.d. [Cardizem Cd] 180 mg PO DAILY #30 capsule 08/16/16 08/27/16 Unknown Rx Furosemide [Lasix] 40 mg PO DAILY #30 tablet 08/16/16 08/27/16 08/27/16 08:00 Rx LISINOpril [Prinivil] 10 mg PO BID #60 tablet 08/16/16 08/27/16 08/27/16 08:00 Rx Methylprednisolone [Medrol Dosepak] 4 mg PO DIRECTED #1 package 08/16/1608/27/16 07:00 Rx Review of Systems - Adult - REVIEW OF SYSTEMS - ADULT ROS:: limited per condition Constitutional: denies: chills, fever, fatique Eyes: reports: no symptoms reported Ears, Nose, Mouth & Throat: denies: ear pain, sinus problem, throat pain Cardiovascular: denies: chest pain, irregular heart rate, orthopnea, syncope Respiratory: reports: dyspnea on exertion, shortness of breath. denies: pleurisy, wheezing Gastrointestinal: denies: abdominal pain, diarrhea, nausea, vomiting Genitourinary: reports: no symptoms reported Musculoskeletal: reports: no symptoms reported Integumentary: reports: no symptoms reported Neurological: reports: no symptoms reported Psychiatric: reports: no symptoms reported Endocrine: reports: no symptoms reported Hematologic/Lymphatic: reports: no symptoms reported Allergic/Immunologic: reports: no symptoms reported All Other Systems: Reviewed and Negative <Lisa Francis - Last Filed: 08/27/16 17:49> Past History - Adult - PAST MEDICAL HISTORY-ADULT Review of Records: reports: Nursing Assessment Review, Medications Reviewed Major Childhood Illnesses: reports: denies history Cardiovascular: reports: arrhythmia, HTN Respiratory: reports: asthma, COPD Neurological: reports: Seizures/Epilepsy Psychiatric: reports: bipolar, schizophrenia - PRIOR SURGERIES/PROCEDURES Surgical/Procedure History: reports: reviewed, not pertinent - IMMUNIZATION STATUS Childhood Immunizations: See Nurse Assessment Flu Vaccine: See Nurse Assessment - FAMILY HISTORY Family History: reviewed, not pertinent - SOCIAL HISTORY Smoking: cigarettes, less than 1 pack/day Provider spent 3-5 mins advising pt. on dangers of tobacco.: Discussed manners to quit use, and f/u contacts for add'l counseling. Substance Use: none/never <Lisa Francis - Last Filed: 08/27/16 17:49> Physical Exam-General - PHYSICAL EXAM-ADULT Initial Vital Signs Reviewed: Yes - CONSTITUTIONAL General Appearance: alert, lethargic, other (slurry speech). negative: appears well - EYES Eyes: negative: PERRL/EOMI (dilated pupils but reactive) - NECK Neck: non-tender, full range of motion, supple, normal inspection, other ( nondistended neck veins) - RESPIRATORY Respiratory: chest non-tender, respiratory distress - CARDIOVASCULAR Cardiovascular: regular rate, rhythm - MUSCULOSKELETAL Extremity: normal range of motion, non-tender - SKIN Integumentary: normal turgor, warm/dry, pallor - PSYCHIATRIC Psych/Mental Status: normal thought content, normal thought process, oriented x 3 <Lisa Francis - Last Filed: 08/27/16 17:49> Progress - PLAN OF CARE/RESULTS Progress/Plan/Lab Results: Orders Category Date Time Status Cardiac Monitoring DIRECTED Care 08/27/16 15:58 Active Oxygen Therapy- ED Nursing DIRECTED Care 08/27/16 15:58 Active Saline Loc NOW Care 08/27/16 15:58 Active CHEST-2 VIEWS [RAD] Stat Exams 08/27/16 15:58 Taken ABG [RESP] Routine Lab 08/27/16 16:20 Ordered CBC WITH ELECTRONIC DIFF [HEME] Stat Lab 08/27/16 14:47 Completed CK PROFILE [SP CHEM] Stat Lab 08/27/16 14:47 Completed COMPREHENSIVE METABOLIC PANEL [CHEM] Stat Lab 08/27/16 14:47 Completed D-DIMER [CHEM] Stat Lab 08/27/16 14:47 Completed MAGNESIUM [CHEM] Stat Lab 08/27/16 14:47 Completed PRO B-NATRIURETIC PEPTIDE Stat Lab 08/27/16 14:47 Received PROTIME WITH INR [COAG] Stat Lab 08/27/16 14:47 Completed PTT [COAG] Stat Lab 08/27/16 14:47 Completed TROPONIN T Stat Lab 08/27/16 14:47 Completed Aspirin Med 08/27/16 15:58 Discontinued 325 mg PO STAT STA Nitroglycerin Sl [Nitroglycerin] Med 08/27/16 15:58 Active 0.4 mg SL Q5M PRN PRN EKG [EKG] Stat Ther 08/27/16 15:58 Ordered Vital Signs - 24 hr 08/27/16 08/27/16 08/27/16 14:43 15:33 15:42 Temperature 99.5 F Pulse Rate 100 H 97 H 98 H Respiratory 20 23 27 H Rate Blood Pressure 150/77 168/97 168/87 O2 Sat by Pulse 96 98 96 Oximetry Laboratory Tests 08/27/16 08/27/16 08/27/16 14:47 14:47 14:47 WBC 5.41 RBC 4.57 Hgb 14.3 Hct 44.8 MCV 98.0 MCH 31.3 H MCHC 31.9 L RDW Std Deviation 14.7 H Plt Count 268 MPV 8.7 Immature Gran % (Auto) 0.0 Neut % (Auto) 58.2 Lymph % (Auto) 30.7 [place] % (Auto) 9.6 H Eos % (Auto) 1.1 Baso % (Auto) 0.4 Immature Gran # (Auto) 0.00 Neut # (Auto) 3.15 Lymph # (Auto) 1.66 [place] # (Auto) 0.52 Eos # (Auto) 0.06 Baso # (Auto) 0.02 PT INR PTT (Actin FS) D-Dimer 0.31 Specimen Type Sample Site pH pCO2 pO2 HCO3 Base Excess Oxyhemoglobin ABG O2 Sat (Calculated) ABG O2 Saturation ABG Carboxyhemoglobin ABG Methemoglobin Wily Test A-a O2 Difference Total Hemoglobin Lactate Liter Flow Blood Gas Modality FiO2 % Sodium 138 Potassium 4.3 Chloride 96 L Carbon Dioxide 34 Anion Gap 8 BUN 4 L Creatinine 0.5 Estimated GFR/1.73 m2 > 60 BUN/Creatinine Ratio 8 Glucose 129 H Calculated Osmolality 274 Calcium 8.7 L Magnesium 1.8 Total Bilirubin 0.25 AST 12 ALT 8 L Alkaline Phosphatase 77 Creatine Kinase 17 L Troponin T Xih-[id number]-Lpojpxksdpm Pept Total Protein 6.7 Albumin 3.3 L Globulin 3.4 Albumin/Globulin Ratio 1.0 08/27/16 08/27/16 08/27/16 14:47 14:47 14:47 WBC RBC Hgb Hct MCV MCH MCHC RDW Std Deviation Plt Count MPV Immature Gran % (Auto) Neut % (Auto) Lymph % (Auto) [place] % (Auto) Eos % (Auto) Baso % (Auto) Immature Gran # (Auto) Neut # (Auto) Lymph # (Auto) [place] # (Auto) Eos # (Auto) Baso # (Auto) PT 12.0 H INR 1.13 PTT (Actin FS) 24.3 D-Dimer Specimen Type Sample Site pH pCO2 pO2 HCO3 Base Excess Oxyhemoglobin ABG O2 Sat (Calculated) ABG O2 Saturation ABG Carboxyhemoglobin ABG Methemoglobin Wily Test A-a O2 Difference Total Hemoglobin Lactate Liter Flow Blood Gas Modality FiO2 % Sodium Potassium Chloride Carbon Dioxide Anion Gap BUN Creatinine Estimated GFR/1.73 m2 BUN/Creatinine Ratio Glucose Calculated Osmolality Calcium Magnesium Total Bilirubin AST ALT Alkaline Phosphatase Creatine Kinase Troponin T < 0.010 Kup-Y-Nygoieqmmyl Pept 3299 H Total Protein Albumin Globulin Albumin/Globulin Ratio 08/27/16 16:50 WBC RBC Hgb Hct MCV MCH MCHC RDW Std Deviation Plt Count MPV Immature Gran % (Auto) Neut % (Auto) Lymph % (Auto) [place] % (Auto) Eos % (Auto) Baso % (Auto) Immature Gran # (Auto) Neut # (Auto) Lymph # (Auto) [place] # (Auto) Eos # (Auto) Baso # (Auto) PT INR PTT (Actin FS) D-Dimer Specimen Type ARTERIAL Sample Site R RADIAL pH 7.25 L pCO2 101 H* pO2 82 HCO3 34.4 H Base Excess 12.6 H Oxyhemoglobin 85.0 L* ABG O2 Sat (Calculated) 16.1 ABG O2 Saturation 98.5 ABG Carboxyhemoglobin 12.40 H* ABG Methemoglobin 1.4 Wily Test YES A-a O2 Difference 148.0 Total Hemoglobin 13.4 Lactate 0.50 Liter Flow 15.0 Blood Gas Modality VENTIMASK FiO2 % 50.0 Sodium Potassium Chloride Carbon Dioxide Anion Gap BUN Creatinine Estimated GFR/1.73 m2 BUN/Creatinine Ratio Glucose Calculated Osmolality Calcium Magnesium Total Bilirubin AST ALT Alkaline Phosphatase Creatine Kinase Troponin T Jhc-B-Rrlzyuxvfar Pept Total Protein Albumin Globulin Albumin/Globulin Ratio 1735 Hospitalist paiged Pt placed on bipap - XRAY 1 XRAY: Bilateral XRAY Study: Chest Impression: Abnormal (mild prominence of central vascular markings. no other acute changes.) - CONSULTS/PCP/HOSPITALIST Notification #1 *Consult/PCP/Hospitalist*: [facility] Time Discussed: 17:50 Consult Disposition: Admit <Lisa Francis - Last Filed: 08/27/16 17:49> - PLAN OF CARE/RESULTS Progress/Plan/Lab Results: Laboratory Tests 08/27/16 08/27/16 08/27/16 14:47 14:47 14:47 WBC 5.41 RBC 4.57 Hgb 14.3 Hct 44.8 MCV 98.0 MCH 31.3 H MCHC 31.9 L RDW Std Deviation 14.7 H Plt Count 268 MPV 8.7 Immature Gran % (Auto) 0.0 Neut % (Auto) 58.2 Lymph % (Auto) 30.7 [place] % (Auto) 9.6 H Eos % (Auto) 1.1 Baso % (Auto) 0.4 Immature Gran # (Auto) 0.00 Neut # (Auto) 3.15 Lymph # (Auto) 1.66 [place] # (Auto) 0.52 Eos # (Auto) 0.06 Baso # (Auto) 0.02 PT INR PTT (Actin FS) D-Dimer 0.31 Specimen Type Sample Site pH pCO2 pO2 HCO3 Base Excess Oxyhemoglobin ABG O2 Sat (Calculated) ABG O2 Saturation ABG Carboxyhemoglobin ABG Methemoglobin Wily Test A-a O2 Difference Total Hemoglobin Lactate Liter Flow Blood Gas Modality FiO2 % Sodium 138 Potassium 4.3 Chloride 96 L Carbon Dioxide 34 Anion Gap 8 BUN 4 L Creatinine 0.5 Estimated GFR/1.73 m2 > 60 BUN/Creatinine Ratio 8 Glucose 129 H Calculated Osmolality 274 Calcium 8.7 L Magnesium 1.8 Total Bilirubin 0.25 AST 12 ALT 8 L Alkaline Phosphatase 77 Creatine Kinase 17 L Troponin T Jxg-V-Xryofeeeycq Pept Total Protein 6.7 Albumin 3.3 L Globulin 3.4 Albumin/Globulin Ratio 1.0 08/27/16 08/27/16 08/27/16 14:47 14:47 14:47 WBC RBC Hgb Hct MCV MCH MCHC RDW Std Deviation Plt Count MPV Immature Gran % (Auto) Neut % (Auto) Lymph % (Auto) [place] % (Auto) Eos % (Auto) Baso % (Auto) Immature Gran # (Auto) Neut # (Auto) Lymph # (Auto) [place] # (Auto) Eos # (Auto) Baso # (Auto) PT 12.0 H INR 1.13 PTT (Actin FS) 24.3 D-Dimer Specimen Type Sample Site pH pCO2 pO2 HCO3 Base Excess Oxyhemoglobin ABG O2 Sat (Calculated) ABG O2 Saturation ABG Carboxyhemoglobin ABG Methemoglobin Wily Test A-a O2 Difference Total Hemoglobin Lactate Liter Flow Blood Gas Modality FiO2 % Sodium Potassium Chloride Carbon Dioxide Anion Gap BUN Creatinine Estimated GFR/1.73 m2 BUN/Creatinine Ratio Glucose Calculated Osmolality Calcium Magnesium Total Bilirubin AST ALT Alkaline Phosphatase Creatine Kinase Troponin T < 0.010 Vsu-P-Ajihtajvglo Pept 3299 H Total Protein Albumin Globulin Albumin/Globulin Ratio 08/27/16 16:50 WBC RBC Hgb Hct MCV MCH MCHC RDW Std Deviation Plt Count MPV Immature Gran % (Auto) Neut % (Auto) Lymph % (Auto) [place] % (Auto) Eos % (Auto) Baso % (Auto) Immature Gran # (Auto) Neut # (Auto) Lymph # (Auto) [place] # (Auto) Eos # (Auto) Baso # (Auto) PT INR PTT (Actin FS) D-Dimer Specimen Type ARTERIAL Sample Site R RADIAL pH 7.25 L pCO2 101 H* pO2 82 HCO3 34.4 H Base Excess 12.6 H Oxyhemoglobin 85.0 L* ABG O2 Sat (Calculated) 16.1 ABG O2 Saturation 98.5 ABG Carboxyhemoglobin 12.40 H* ABG Methemoglobin 1.4 Wily Test YES A-a O2 Difference 148.0 Total Hemoglobin 13.4 Lactate 0.50 Liter Flow 15.0 Blood Gas Modality VENTIMASK FiO2 % 50.0 Sodium Potassium Chloride Carbon Dioxide Anion Gap BUN Creatinine Estimated GFR/1.73 m2 BUN/Creatinine Ratio Glucose Calculated Osmolality Calcium Magnesium Total Bilirubin AST ALT Alkaline Phosphatase Creatine Kinase Troponin T Fod-W-Amfmudjgdto Pept Total Protein Albumin Globulin Albumin/Globulin Ratio Orders Category Date Time Status Cardiac Monitoring DIRECTED Care 08/27/16 15:58 Completed Oxygen Therapy- ED Nursing DIRECTED Care 08/27/16 15:58 Completed Saline Loc NOW Care 08/27/16 15:58 Completed CHEST-2 VIEWS [RAD] Stat Exams 08/27/16 15:58 Completed ABG [RESP] Routine Lab 08/27/16 16:50 Completed ABG [RESP] Routine Lab 08/27/16 18:48 Ordered CBC WITH ELECTRONIC DIFF [HEME] Stat Lab 08/27/16 14:47 Completed CK PROFILE [SP CHEM] Stat Lab 08/27/16 14:47 Completed COMPREHENSIVE METABOLIC PANEL [CHEM] Stat Lab 08/27/16 14:47 Completed D-DIMER [CHEM] Stat Lab 08/27/16 14:47 Completed MAGNESIUM [CHEM] Stat Lab 08/27/16 14:47 Completed PRO B-NATRIURETIC PEPTIDE Stat Lab 08/27/16 14:47 Completed PROTIME WITH INR [COAG] Stat Lab 08/27/16 14:47 Completed PTT [COAG] Stat Lab 08/27/16 14:47 Completed TROPONIN T Stat Lab 08/27/16 14:47 Completed Albuterol 2.5MG/Ipratrop 0.5MG [Duoneb (A & A)] Med 08/27/16 17:29 Discontinued 6 ml INH NOW ONE Aspirin Med 08/27/16 15:58 Discontinued 325 mg PO STAT STA Nitroglycerin Sl [Nitroglycerin] Med 08/27/16 15:58 Discontinued 0.4 mg SL Q5M PRN PRN Aerosol Treatments Routine Oth 08/27/16 17:29 Completed Aerosol Treatments Stat Oth 08/27/16 17:29 Completed BIPAP Stat Oth 08/27/16 17:30 Active Vital Signs - 24 hr 08/27/16 08/27/16 08/27/16 14:43 15:33 15:42 Temperature 99.5 F Pulse Rate 100 H 97 H 98 H Respiratory 20 23 27 H Rate Blood Pressure 150/77 168/97 168/87 O2 Sat by Pulse 96 98 96 Oximetry 08/27/16 08/27/16 08/27/16 17:46 17:49 17:58 Temperature Pulse Rate 84 97 H 100 H Respiratory 18 25 H 28 H Rate Blood Pressure 173/94 173/94 O2 Sat by Pulse 90 L 94 L 92 L Oximetry 08/27/16 19:05 Temperature Pulse Rate 99 H Respiratory 18 Rate Blood Pressure 155/98 O2 Sat by Pulse [address] Real wants Pt intubated and then admitted but on reassessment by Dr. Burns. He decided that the Pt did not need to be intubated. - REASSESSMENT Reassessment #1 Time Reassessed: 06:00 Status: improving Reassessment Comment: Improvement with sentences, breathing better on Bipap <Donita Villeda - Last Filed: 08/27/16 19:12> Departure - Departure Time of Disposition Order: 17:28 Certified Medical Emergency: Emergent <Lisa Francis - Last Filed: 08/27/16 17:49> - Critical Care Note Total Time (mins): 30 Critical Care Statement: This patient required my direct personal management to treat or rule out processes, the absence of which, could potentiallly result in sudden, clinically significant life or limb threatening deterioration. <Donita Villeda - Last Filed: 08/27/16 19:12> - Departure DIAGNOSIS: CO2 narcosis Disposition: ADMITTED INPATIENT 09 Condition: Critical Referrals: Cruzito Pichardo [Primary Care Provider] - Attestation - Scribe Verification/Attestation Scribe:: Lisa Francis Acting as Scribe for:: Dwayne Burns Scribash documention review:: This chart was documented by a scribe and accurately reflects the service the provider performed and the decisions made by the provider. <Lisa Francis - Last Filed: 08/27/16 17:49> - Scribe Verification/Attestation Scribe:: Donita Villeda Acting as Scribe for:: Dwayne Burns Scribash documention review:: This chart was documented by a scribe and accurately reflects the service the provider performed and the decisions made by the provider. <Donita Villeda - Last Filed: 08/27/16 19:12> Physician Attestation
[2016-08-27 16:55] LABS: ALLEN TEST YES; BE 12.6 mmoll (-3.0-3.0); BLOOD TYPE ARTERIAL; DRAW SITE R RADIAL; METHB 1.4 % (0.0-1.5); O2(CT) 16.1 mL/dL (15.0-23.0); PO2(98.6) 82 mmHg (60-100); SAMPLE BLOOD; SAO2 98.5 % (95.0-100.0); THB 13.4 g/dL (11.5-17.4); pH(98.6) 7.25 (7.35-7.45)
[2016-08-27 16:58] LABS: PCO2(98.6) 101 mmHg (35-45)
[2016-08-27 16:59] LABS: MODALITY VENTIMASK
[2016-08-27] MEDS ORDERED: DUONEB (A & A) INH ONE (17:29)
--- NOTE | 2016-08-27 17:46 | Diag Imaging Result Document ---
PROCEDURE NAME: CHEST-2 VIEWS - 08/27/2016 CHEST 2 VIEWS: COMPARISON: Compared with portable exam 08/16/2016. FINDINGS: Heart size appears within normal limits and stable. There is a granuloma from old granulomatous disease at the left base which is stable. There is mild prominence of central vascular markings. There is no dense consolidation or gross vascular congestion identified. There is no substantial pleural effusion or pneumothorax identified. IMPRESSION: Mild prominence of central vascular markings. No other acute changes.
[2016-08-27] MEDS ORDERED: ATIVAN ONE (19:34)
[2016-08-27] MEDS ORDERED: HALDOL ONE (19:34)
[2016-08-27] MEDS ORDERED: HALDOL IM ONE ×2 (19:44→20:31)
[2016-08-27] MEDS ORDERED: ATIVAN IV ONE ×2 (19:44→20:31)
[2016-08-27] MEDS ORDERED: HALDOL IM PRN (19:44)
[2016-08-27 20:42] LABS: ALLEN TEST YES; BE 10.9 mmoll (-3.0-3.0); BLOOD TYPE ARTERIAL; DRAW SITE R RADIAL; METHB 1.7 % (0.0-1.5); O2(CT) 15.9 mL/dL (15.0-23.0); PO2(98.6) 57 mmHg (60-100); SAMPLE BLOOD; SAO2 94.3 % (95.0-100.0); SRATE 14 BPM; THB 13.5 g/dL (11.5-17.4); pH(98.6) 7.34 (7.35-7.45)
[2016-08-27 20:43] LABS: MODALITY BI PAP
[2016-08-27 20:47] LABS: PCO2(98.6) 74 mmHg (35-45)
[2016-08-27] MEDS ORDERED: BENADRYL IV ONE (20:49)
[2016-08-27] MEDS ORDERED: TYLENOL PO PRN (22:59)
[2016-08-27] MEDS ORDERED: ATIVAN IV PRN (22:59)
[2016-08-27] MEDS: DUONEB (A & A) INH SCH (22:59)
[2016-08-27] MEDS ORDERED: SODIUM CHLORIDE 0.9% INJ ONE (22:59)
[2016-08-27] MEDS: PRINIVIL PO SCH (22:59)
[2016-08-27] MEDS: COGENTIN PO SCH (22:59)
[2016-08-27] MEDS: DEPAKOTE ER PO SCH (22:59)
[2016-08-27] MEDS ORDERED: ZOFRAN IV PRN (22:59)
[2016-08-27] MEDS ORDERED: NICODERM PATCH TD ONE (22:59)
[2016-08-27] MEDS: LASIX IV SCH (23:41)
[2016-08-27] MEDS: SODIUM CHLORIDE 0.9% INJ SCH (23:43)
[2016-08-27] MEDS: PROTONIX IV SCH (23:43)
[2016-08-27] MEDS: LOVENOX SUBQ SCH (23:48)
--- NOTE | 2016-08-28 00:03 | HISTORY AND PHYSICAL ---
PRIMARY CARE PHYSICIAN: Dr. Cruzito Pichardo. REASON FOR ADMISSION: Shortness of breath with abnormal ABG results. Ms Judith Valentin is a 55- year-old lady, with past medical history of COPD, who continues to smoke about 5 packs a day of cigarettes, schizoaffective disorder and seizure disorder, who has been complaining of shortness of breath, to the point that her that her primary care physician was concerned about her breathing and wanted her to get an ABG to see if she qualifies for home O2. This morning she came in. She went to the lab and when her lab results came back, her blood gas was deemed be grossly abnormal,and she was sent to the ER. On reviewing her labs, her blood gas, she was put on a Bi- PAP of FiO2 of 35%, her blood gas was 7.34, pCO2 of 74, PO2 of 57. Based on this, and her complaints of her chronic dyspnea, she is being admitted to remedy this abnormal blood gas. When I went to see the patient, she was initially calm, and I asked her why she came in. She then told me that she wanted to leave, that she was being held against her will. I tried to reason with the patient, and she got very agitated and belligerent. Her friend who is at bedside, said that prior to coming to the hospital she was very lethargic and confused, and that since she has had the Bi-PAP on she has been more awake and coherent, and that whenever her oxygen level improves or carbon dioxide improves, she gets more belligerent and very uncooperative. So, midway into the interview, the patient told me that she did not want to talk anymore, and she wanted to go to go home. As far as the early part of the interview, the patient actually denied having any cardiorespiratory issues and/or any other complaints. She said she didn't understand why she was being admitted. I explained to her, but she was not satisfied with the reason. I explained to her that her oxygen level was low, and that her carbon dioxide level was high, but she was not happy with that reason. REVIEW OF SYSTEMS: Could not be ascertained because patient not cooperative. MEDICATIONS: She takes Cogentin 1 mg b.i.d., Depakote 1000 mg at bedtime, Cardizem 180 mg daily, Lasix 40 mg daily, lisinopril 10 mg b.i.d. SURGICAL HISTORY: Obtained from her prior H P, since patient had decided she was not going to talk to me. FAMILY HISTORY: Positive for CAD and diabetes in first degree relatives. SOCIAL HISTORY: She has gone up from 2 packs a day to 5 packs a day per ER physician. No alcohol or drug use. She lives in a homeless residential. ALLERGIES: Reportedly, she is allergic to aspirin and penicillin, which her current record states she is not allergic, but I listed aspirin and penicillin. LABORATORY WORK: White count 5,000, hemoglobin and hematocrit 14 and 44, platelets 268,000. Glucose 129, magnesium 1.8. CK 12, troponin negative. ProBNP 3,299, D-dimer 0.33. PTT is normal. Chest x-ray showed increased pulmonary vasculature, otherwise grossly normal. ABG per HPI. PHYSICAL EXAMINATION: GENERAL: Middle-aged woman, who is very angry and agitated, to the point of being combative. We had to give her some Haldol and Ativan to calm her down in the interim, and this transiently it calmed her down, and she is sitting in the bed with BiPAP mask on the face, which she initially ripped off. She is alert and oriented to person, place, and time. HEENT: Head is normocephalic, atraumatic. Eyes: DRE, EOMI. She is anicteric , not pale. ENT: Oropharynx exam is limited but I don't visually see any sign of cyanosis. NECK: No JVD visualized. CHEST: As far as I could do, is clear to auscultation. CARDIOVASCULAR: First and second heart sounds are heard. ABDOMEN: I did not do an abdominal exam. She didn't want me to touch her at that time. EXTREMITIES: I didn't visualize any edema and no peripheral cyanosis or clubbing . The patient is able to stand and ambulate with no visualized focal deficits noted. SKIN: Grossly intact. MUSCULOSKELETAL: Appears to be grossly normal. ASSESSMENT: 1. Acute on chronic respiratory failure, probably secondary to COPD. 2. COPD. 3. Tobacco use. 4. Mild diastolic heart failure. 5. Schizoaffective disorder. 6. Seizure disorder. PLAN: At this time, we will continue BiPAP support. Check ABG in the morning. Start patient on IV Lasix to mildly diurese her, and see if this helps. The vigilance to ensure patient does not develop metabolic alkalosis, in which case, we could consider switching to Diamox. Check x-ray in the morning. We had to give the patient p.r.n. Haldol and Ativan to keep her calm, so that she can keep BiPAP machine on her face for optimal benefit. DuoNeb's will also be given as this patient has underlying COPD. The patient on a NicoDerm patch to prevent nicotine withdrawal , and agitation, but this will have to be high dose, due to the fact that she smokes 5 packs a day. DVT prophylaxis, and peptic ulcer disease prophylaxis will be instituted in this patient. Patient will be transferred to the ICU because she is going to be very difficult to control on the regular floor bed. MTDD
[2016-08-28] MEDS: DUONEB (A & A) INH SCH ×4 (04:00→22:58)
[2016-08-28 04:22] LABS: ALLEN TEST YES; BE 12.6 mmoll (-3.0-3.0); BLOOD TYPE ARTERIAL; DRAW SITE R RADIAL; METHB 1.6 % (0.0-1.5); O2(CT) 17.2 mL/dL (15.0-23.0); PO2(98.6) 97 mmHg (60-100); SAMPLE BLOOD; SAO2 98.8 % (95.0-100.0); SRATE 14 BPM; THB 13.3 g/dL (11.5-17.4); pH(98.6) 7.23 (7.35-7.45)
[2016-08-28 04:44] LABS: MODALITY BI PAP; PCO2(98.6) 107 mmHg (35-45)
[2016-08-28 06:01] LABS: MANUAL DIFF NEEDED? NO
[2016-08-28 06:18] LABS: BASO% 0.2 % (0.0-0.8); EOS# 0.05 X1000 (0.0-0.7); HEMATOCRIT 42.7 % (37.0-47.0); HEMOGLOBIN 13.1 g/dL (12.0-16.0); LYMPH# 1.44 X1000 (1.2-3.4); LYMPH% 27.9 % (20.5-51.1); MCH 30.9 PG (27-31); MCHC 30.7 g/dL (33-37); MCV 100.7 FL (81-99); MONO% 11.6 % (1.7-9.3); MPV 8.7 FL (7.4-10.4); NEUT% 59.3 % (42.2-75.2); PLT 208 X1000 (130-400); RBC 4.24 XMIL (4.2-5.4)
[2016-08-28 06:34] LABS: AGAP 5; ALBUMIN 3.1 g/dL (3.5-5.0); ALKALINE PHOSPHATASE 73 U/L (32-104); BUN 5 mg/dL (8-22); CALCIUM 8.5 mg/dL (8.8-10.2); CHLORIDE 99 mmol/L (98-107); COSMO 287; GOT 9 U/L (10-30); GPT 7 U/L (10-36); POTASSIUM 3.8 mmol/L (3.5-5.1); SODIUM 145 mmol/L (136-145); TCO2 41 mmol/L (25-35); TOTAL BILIRUBIN 0.24 mg/dL (0.20-1.00); TOTAL PROTEIN 6.1 g/dL (6.3-8.3)
--- NOTE | 2016-08-28 07:40 | Diag Imaging Result Document ---
PROCEDURE NAME: CHEST-PORTABLE - 08/28/2016 AP PORTABLE CHEST AT 0500 HOURS: FINDINGS: There is a calcified granuloma in the left lower lobe. There are calcified nodes in the left hilum and aorticopulmonary window. There has been no significant change in the appearance of the chest since 08/27/2016. IMPRESSION: Stable chest.
[2016-08-28] MEDS: LASIX IV SCH (09:08)
[2016-08-28] MEDS: CARDIZEM CD PO SCH (09:49)
[2016-08-28] MEDS: PRINIVIL PO SCH ×2 (09:50→21:02)
[2016-08-28] MEDS: DALIRESP PO SCH (09:51)
[2016-08-28] MEDS: COGENTIN PO SCH ×2 (09:52→21:01)
--- NOTE | 2016-08-28 09:52 | CONSULTATION ---
DATE OF CONSULTATION: 08/28/2016 REFERRING PHYSICIAN: Willian Irene MD DATE OF CONSULTATION: 08/28/2016 CHIEF COMPLAINT: Shortness of breath. HISTORY OF PRESENT ILLNESS: This is a 55-year-old female with a past medical history of chronic obstructive pulmonary disease and tobacco abuse, who presented to the emergency room after blood gas ordered from her primary care physician that revealed an elevated CO2 and decreased oxygen level. The patient has been uncooperative with staff up to this point. Apparently friends at the bedside informed staff that she was decreased level consciousness and lethargic at home, but since being on BiPAP she has become more alert. She is awaiting placement in the intensive care unit for close monitoring and evaluation. REVIEW OF SYSTEMS: A 10-point review of systems was conducted. Pertinent's as noted in the history of present illness and otherwise noncontributory. PAST MEDICAL HISTORY: Chronic obstructive pulmonary disease. PAST SURGICAL HISTORY: Denies. FAMILY HISTORY: Notable for coronary artery disease and diabetes. SOCIAL HISTORY: The patient lives in a homeless senior living. Denies use of alcohol or illicit drugs but smokes 5 packs per day of cigarettes. ALLERGIES: Aspirin and penicillin. ACTIVE MEDICATIONS: Tylenol, DuoNeb, Cogentin, Cardizem, Depakote, Lovenox, Lasix, Haldol, Prinivil, Zofran, Protonix, and Daliresp. PHYSICAL EXAMINATION: Vital Signs: Temperature 97.7, heart rate 98, respiratory rate 20, blood pressure 157/90, oxygen saturation 100%. General: Awake and alert. Wearing BiPAP. No acute distress noted. HEENT: Normocephalic and atraumatic. Pupils equal, round, and reactive to light. Cardiovascular: S1, S2 present. Chest: Reduced entry. Abdomen: Bowel sounds present. Extremities: No edema noted. Neurologic: Alert and oriented x3. LABS AND INVESTIGATIONS: WBC 5.17, RBCs 4.24, hemoglobin 13.1, hematocrit 42.7, platelet count 208,000. Sodium 145, potassium 3.8, chloride 99, CO2 41, anion gap 5. BUN 5, creatinine 0.4, glucose 94. Chest x-ray performed on 08/28/2016 shows stable chest. ASSESSMENT AND PLAN: This is a 55-year-old female past medical history of chronic obstructive pulmonary disease, that presented to the hospital with complaints of shortness of breath. She has been admitted and is awaiting an ICU bed. She will be evaluated for her acute on chronic respiratory failure secondary to chronic obstructive pulmonary disease. Continue BiPAP therapy, inhaled bronchodilators, nicotine patch for tobacco withdrawals, deep venous thrombosis and gastrointestinal prophylaxis. Further recommendations pending diagnostic studies. Thank you for the courtesy of this consult. Dictated by KYLE Cool for David Triana MD
[2016-08-28 10:41] LABS: URINE MICRO REVIEW NEEDED? NO; URINE SOURCE CATH
[2016-08-28 10:45] LABS: BILIRUBIN URINE NEGATIVE (NEGATIVE); BLOOD URINE MODERATE (NEGATIVE); COLOR YELLOW; GLUCOSE URINE NEGATIVE (NEGATIVE); LEUKOCYTES URINE TRACE (NEGATIVE); NITRITE URINE NEGATIVE (NEGATIVE); PROTEIN URINE NEGATIVE (NEGATIVE); TURBIDITY URINE CLEAR (CLEAR); UROBILINOGEN URINE NORMAL (NORMAL)
[2016-08-28 10:46] LABS: UR EPITHELIAL CELLS <10 /HPF (<10); URINE BACTERIA NEGATIVE /HPF; URINE CULTURE NEEDED? YES; URINE RBC 20-40 /HPF (<10); URINE WBC <10 /HPF (<10)
[2016-08-28 11:20] LABS: ALLEN TEST YES; BE 19.6 mmoll (-3.0-3.0); BLOOD TYPE ARTERIAL; DRAW SITE R RADIAL; METHB 2.1 % (0.0-1.5); O2(CT) 18.1 mL/dL (15.0-23.0); PO2(98.6) 129 mmHg (60-100); SAMPLE BLOOD; SAO2 99.6 % (95.0-100.0); THB 13.6 g/dL (11.5-17.4)
[2016-08-28 11:28] LABS: MODALITY BI PAP; PCO2(98.6) 105 mmHg (35-45)
[2016-08-28 14:18] LABS: ALLEN TEST YES; BLOOD TYPE ARTERIAL; DRAW SITE L RADIAL; METHB 1.7 % (0.0-1.5); O2(CT) 16.2 mL/dL (15.0-23.0); PO2(98.6) 62 mmHg (60-100); SAMPLE BLOOD; SAO2 96.2 % (95.0-100.0); THB 12.6 g/dL (11.5-17.4); pH(98.6) 7.35 (7.35-7.45)
[2016-08-28 14:20] LABS: MODALITY BI PAP; PCO2(98.6) 89 mmHg (35-45)
--- NOTE | 2016-08-28 16:54 | PROGRESS NOTE ---
DATE: 08/28/2016 SUBJECTIVE: Patient Cruzito FontenotDarryn Pichardo Jr., M.D. She was admitted yesterday. Came in with shortness of breath. Abnormal ABGs. Judith Armenta is a 55-year-old lady with history of COPD, continues to smoke 5 packs a day of cigarettes. She has schizoaffective disorder and seizure disorder, has been complaining of shortness of breath to the point that her primary care physician was concerned about her breathing, wanted her to get ABGs to see if she qualifies for home O2. The morning she came in, she went to the lab where lab results came back blood gas did return to be grossly abnormal. Sent to the ER. In the emergency room. She was put on BiPAP, FiO2 35%. Her blood gas was pH 7.34, pCO2 74, PO2 57. Based on this and her complaints of chronic dyspnea, she was being admitted. Patient initially was calm. That is why she came in. She then told me she wanted to leave and she said she is being held against her will. I tried to reason with the patient. She was agitated and belligerent. Her friend who was at the bedside said that prior to come in the hospital, she was very lethargic, confused and since the time she has had the BiPAP she has been more awake and coherent. Whenever, oxygen level improves and her carbon dioxide improves, she gets more belligerent, very uncooperative. So midway through the interview, patient told me that she did not want to talk anymore and she wanted to go home. This was actually talking to Dr. Irene. She said she did not understand what she is being admitted. Apparently she agree she has COPD, acute on chronic respiratory failure, chronic CO2 retention, chronic hypoxemia, continued tobacco use, she has schizoaffective disorder and apparently history of seizure disorder. Dr. Triana was consulted. He saw her this morning. He agrees she has chronic COPD, pulmonary disease, he wanted to continue BiPAP, inhaler, bronchodilators, nicotine patch for tobacco withdrawal, deep venous prophylaxis. OBJECTIVE: General: Today, she is sleeping and comfortable, easy to arouse. She has been cooperative for most of the morning. Vital signs: Temperature 97.4 degrees, pulse 89, respirations 16, blood pressure 136/85. HEENT: Pupils are equal and round, CVP less than 6 cm. Lungs: Clear in all lung wei. Cardiovascular: Regular rhythm and rate without murmur or S3. She is on BiPAP, 50% FiO2, urine output was 2568. LABORATORY: Reviewed from presentation, white count 5170, hematocrit 42, platelet count 208,000. Blood sugars 110, 94, 72 and creatinine is 0.4. ASSESSMENT AND PLAN: 1. Acute on chronic respiratory failure, chronic obstructive pulmonary disease, chronic CO2 retention and hypoxemia. 2. Schizoaffective disorder. Continue present medication. 3. Mild diastolic heart failure. 4. History of seizure disorder. Reviewed her orders. I do not see any change at this point. She is on roflumilast 500 mcg daily, she is on Protonix 40 mg daily, Prinivil 10 mg b.i.d., Lovenox 40 mg subcutaneous daily, Depakote 1000 mg at bedtime, Cogentin 1 mg p.o. b.i.d., Diltiazem CD 180 mg daily, she received some Haldol IM p.r.n., aspirin 325 mg a day. She is getting albuterol treatments.
[2016-08-28] MEDS: DEPAKOTE ER PO SCH (21:02)
[2016-08-28] MEDS: SODIUM CHLORIDE 0.9% INJ SCH (23:57)
[2016-08-28] MEDS: PROTONIX IV SCH (23:57)
[2016-08-29] MEDS: DUONEB (A & A) INH SCH ×4 (03:52→23:40)
[2016-08-29 04:46] LABS: ALLEN TEST YES; BE 20.3 mmoll (-3.0-3.0); BLOOD TYPE ARTERIAL; DRAW SITE R RADIAL; METHB 1.7 % (0.0-1.5); O2(CT) 15.7 mL/dL (15.0-23.0); PO2(98.6) 90 mmHg (60-100); SAMPLE BLOOD; THB 11.7 g/dL (11.5-17.4); pH(98.6) 7.42 (7.35-7.45)
[2016-08-29 04:47] LABS: MODALITY BI PAP; PCO2(98.6) 75 mmHg (35-45)
[2016-08-29 05:26] LABS: MANUAL DIFF NEEDED? NO
[2016-08-29 05:29] LABS: BASO% 0.2 % (0.0-0.8); HEMATOCRIT 38.6 % (37.0-47.0); HEMOGLOBIN 11.9 g/dL (12.0-16.0); IMM GRAN# 0.02 X1000 (0.0-0.04); IMM GRAN% 0.4 % (0.0-0.5); LYMPH# 1.52 X1000 (1.2-3.4); LYMPH% 31.1 % (20.5-51.1); MCH 30.9 PG (27-31); MCHC 30.8 g/dL (33-37); MCV 100.3 FL (81-99); MONO# 0.61 X1000 (0.11-0.59); MONO% 12.5 % (1.7-9.3); MPV 9.9 FL (7.4-10.4); NEUT% 53.8 % (42.2-75.2); PLT 128 X1000 (130-400); RBC 3.85 XMIL (4.2-5.4)
[2016-08-29 05:44] LABS: AGAP 9; BUN 6 mg/dL (8-22); CALCIUM 8.2 mg/dL (8.8-10.2); CHLORIDE 96 mmol/L (98-107); COSMO 285; POTASSIUM 3.9 mmol/L (3.5-5.1); SODIUM 145 mmol/L (136-145); TCO2 40 mmol/L (25-35)
[2016-08-29] MEDS: HALDOL IM PRN ×5 (05:51→23:12)
[2016-08-29] MEDS: LOVENOX SUBQ SCH (06:40)
--- NOTE | 2016-08-29 07:32 | Diag Imaging Result Document ---
PROCEDURE NAME: CHEST-1 VIEW - 08/29/2016 SINGLE FRONTAL RADIOGRAPH OF THE CHEST: COMPARISON: 08/28/2016. FINDINGS: The lungs appear to be clear with no new consolidations. The prominent central vasculature seen on previous studies has essentially resolved. Cardiac silhouette is stable. IMPRESSION: No definite acute pathology on the current radiograph.
[2016-08-29] MEDS: DALIRESP PO SCH (08:19)
[2016-08-29] MEDS: COGENTIN PO SCH ×2 (08:19→20:15)
[2016-08-29] MEDS: PRINIVIL PO SCH ×2 (08:19→20:15)
[2016-08-29] MEDS: CARDIZEM CD PO SCH (08:19)
--- NOTE | 2016-08-29 09:19 | PROGRESS NOTE ---
DATE: 08/29/2016 SUBJECTIVE: Ms. Valentin is resting comfortably. However, shortly after she woke up she wanted to talk to me and she said she did not want to wear the BiPAP anymore and she wanted to go home. She did not want us to hold her here. This was at about 5:30 in the morning. I explained that nobody was holding her and she would need to contact her family to get a ride, and then I strongly recommended that she stay and get her breathing a little better. The patient is pretty adamant that she wanted to go home. OBJECTIVE: Vital Signs: She has remained afebrile. Temperature is 98.0, pulse 84, respirations are 18, and blood pressure is 118/64. HEENT: The pupils are equal and round. CVP less than 6 cm. Lungs: Clear in all lung wei. Cardiovascular: Regular rate without murmur or S3. Abdomen: Soft. Skin: Warm and dry. LABORATORIES: Her urine output was 1300 mL. Her labs were reviewed from yesterday. White blood cell count 4890, hematocrit 38, and platelet count 128,000. Blood gas: The CO2 had come down to 75. The pCO2 was 7.42. The PO2 was 90. She is on 40% FIO2 BiPAP at 1806. The urine output was good. She had close to 3 L in the last 24 hours. ASSESSMENT AND PLAN: 1. A 55-year-old female with a past medical history of chronic obstructive pulmonary disease, who presented to the hospital with shortness of breath. She appears to have chronic hypoxic and chronic CO2 retention. I encouraged her to continue BiPAP therapy, at least p.r.n. Inhaled bronchodilators. She is on a nicotine patch. She has made improvement. 2. She is insistent on going home. There seems to be little bit of delusional thought as well. 3. She has a history of schizoaffective disorder. 4. History of diastolic dysfunction. 5. History of seizure disorder. Review of her orders, she is receiving roflumilast 500 mcg daily, Protonix 40 mg IV daily, Prinivil 10 mg b.i.d., Lovenox 40 mg subcutaneous daily. We will encourage her to continue therapy. Likely can think about getting her to [facility]. I am not sure if she will stay or not.
[2016-08-29] MEDS ORDERED: STERILE WATER INJ. INJ ONE (12:25)
[2016-08-29] MEDS ORDERED: GEODON IM ONE (12:25)
[2016-08-29] MEDS: DEPAKOTE ER PO SCH (20:15)
[2016-08-29] MEDS: PROTONIX IV SCH (23:12)
[2016-08-29] MEDS: SODIUM CHLORIDE 0.9% INJ SCH (23:12)
[2016-08-30] MEDS: DUONEB (A & A) INH SCH ×4 (03:31→19:43)
[2016-08-30] MEDS: HALDOL IM PRN ×4 (04:11→14:20)
[2016-08-30 04:48] LABS: MANUAL DIFF NEEDED? NO
[2016-08-30 04:51] LABS: EOS# 0.09 X1000 (0.0-0.7); EOS% 1.9 % (0.0-10.0); HEMATOCRIT 37.1 % (37.0-47.0); HEMOGLOBIN 11.6 g/dL (12.0-16.0); LYMPH% 33.5 % (20.5-51.1); MCH 30.9 PG (27-31); MCHC 31.3 g/dL (33-37); MCV 98.7 FL (81-99); MONO# 0.62 X1000 (0.11-0.59); NEUT% 51.6 % (42.2-75.2); PLT 141 X1000 (130-400); RBC 3.76 XMIL (4.2-5.4)
[2016-08-30 05:07] LABS: AGAP 9; BUN 8 mg/dL (8-22); CALCIUM 8.3 mg/dL (8.8-10.2); CHLORIDE 96 mmol/L (98-107); COSMO 286; POTASSIUM 3.9 mmol/L (3.5-5.1); SODIUM 145 mmol/L (136-145); TCO2 40 mmol/L (25-35)
[2016-08-30 05:15] LABS: ALLEN TEST YES; BE 18.3 mmoll (-3.0-3.0); BLOOD TYPE ARTERIAL; DRAW SITE L RADIAL; METHB 1.8 % (0.0-1.5); O2(CT) 15.3 mL/dL (15.0-23.0); PO2(98.6) 97 mmHg (60-100); SAMPLE BLOOD; SAO2 98.8 % (95.0-100.0); THB 11.3 g/dL (11.5-17.4); pH(98.6) 7.41 (7.35-7.45)
[2016-08-30 05:17] LABS: MODALITY VENTIMASK; PCO2(98.6) 73 mmHg (35-45)
[2016-08-30] MEDS: LOVENOX SUBQ SCH (06:19)
--- NOTE | 2016-08-30 07:31 | Diag Imaging Result Document ---
PROCEDURE NAME: CHEST-1 VIEW - 08/30/2016 PORTABLE CHEST X-RAY: COMPARISON: 08/29/2016. FINDINGS: There is continued improvement in the ill-defined basilar infiltrates. No new infiltrates. Heart size and pulmonary vascularity is normal. There is some residual infiltrate in the lateral left lung base. IMPRESSION: Continued improvement from prior.
[2016-08-30] MEDS ORDERED: ZYPREXA ZYDIS PO ONE (07:58)
[2016-08-30] MEDS ORDERED: ZYPREXA IM ONE (08:00)
[2016-08-30] MEDS: PRINIVIL PO SCH ×2 (08:01→20:15)
[2016-08-30] MEDS: CARDIZEM CD PO SCH (08:01)
[2016-08-30] MEDS: DALIRESP PO SCH (08:01)
[2016-08-30] MEDS: COGENTIN PO SCH ×2 (08:01→20:15)
--- NOTE | 2016-08-30 08:28 | PROGRESS NOTE ---
DATE: 08/30/2016 SUBJECTIVE: Ms. Valentin is wanting to go home. She is awake. She is hungry. She is breathing better, appears to be a little stronger. OBJECTIVE: Vital signs: Temp 98.6, pulse 79, respirations 21, blood pressure 141/67. HEENT: Pupils are equal and reactive. Neck: CVP less than 6 cm. Lungs: Clear in all lung wei. Cardiovascular: Regular rhythm and rate without murmur or S3. Abdomen: Soft. Skin: Warm and dry. Urine output was about 800 mL. LAB: Reviewed from this morning, white count 4780, hematocrit 37, platelet count 141,000. Chemistry: Sodium 145, potassium 3.9, chloride 96, bicarb 40, BUN 8, creatinine 0.4, blood sugars 74, 72, and 77. IMAGING: Her chest x-ray from this morning showed continued improvement, ill-defined basilar infiltrates, no new infiltrates, pulmonary vascularity is normal. ASSESSMENT AND PLAN: 1. A 55-year-old with a past medical history of chronic obstructive pulmonary disease presented to the hospital with shortness of breath, appears to have chronic hypoxia, chronic CO2 retention. She is off the BiPAP and getting O2 per face mask. 2. Insisting on going home, confused, delirious, irrational, with tangential speech, clearly not ready to leave the hospital yet. 3. History of schizoaffective disorder, aware. I am going to try some Zyprexa today. 4. History of diastolic dysfunction. 5. History of seizure disorder. REVIEW OF HER MEDICATION: Will try some Zyprexa and see how it does. DIET: Will give her a diabetic diet, but her sugars have been in the normal range.
[2016-08-30] MEDS ORDERED: LASIX IV ONE (10:55)
[2016-08-30] MEDS ORDERED: GEODON IM ONE (11:57)
[2016-08-30] MEDS ORDERED: STERILE WATER INJ. INJ ONE (11:57)
[2016-08-30] MEDS ORDERED: PHENOBARBITAL IV PRN (17:13)
[2016-08-30] MEDS: DEPAKOTE ER PO SCH (20:16)
[2016-08-30] MEDS: SODIUM CHLORIDE 0.9% INJ SCH (22:08)
[2016-08-30] MEDS: PROTONIX IV SCH (22:08)
[2016-08-31] MEDS: DUONEB (A & A) INH SCH ×4 (02:55→22:42)
[2016-08-31] MEDS ORDERED: HALDOL IM ONE (03:20)
[2016-08-31] MEDS ORDERED: HALDOL ONE (03:39)
[2016-08-31] MEDS: LOVENOX SUBQ SCH (06:00)
[2016-08-31] MEDS: DALIRESP PO SCH (09:00)
[2016-08-31] MEDS: COGENTIN PO SCH ×2 (09:00→20:23)
[2016-08-31] MEDS: PRINIVIL PO SCH ×2 (09:00→20:23)
[2016-08-31] MEDS: ZYPREXA PO SCH (09:00)
[2016-08-31] MEDS: CARDIZEM CD PO SCH (09:00)
[2016-08-31] MEDS: HALDOL IM PRN ×4 (10:25→23:10)
[2016-08-31] MEDS ORDERED: KLOR-CON PO ONE (10:35)
[2016-08-31] MEDS ORDERED: KLOR-CON ONE (11:02)
[2016-08-31] MEDS: PHENOBARBITAL IM PRN ×2 (13:05→22:10)
--- NOTE | 2016-08-31 14:19 | PROGRESS NOTE ---
DATE: 08/31/2016 She is a little calmer and more cooperative. Still requiring four-point restraints. Her IV she did pull out. Breathing seems to be much better. She is on a face mask. She will not keep the BiPAP on and she will not tolerate nasal cannula. I have decided to try her on some Zyprexa a daily dose in the morning. We are using Haldol. It did appear that the phenobarb was helpful but IV is out. She is refusing a PICC line. EXAM: Vital Signs: Stable. Lungs: Clear anterolateral. Cardiovascular: Regular rhythm rate without murmurs or S3. Abdomen: Soft. Skin: Warm and dry. ASSESSMENT AND PLAN: 1. COPD, hypercapnia, hypoxemia and hypoventilation syndrome with morbid obesity. I will leave the IV out and see if we can give her p.o. Phenobarb seemed to help. We will try the Zyprexa. 2. Schizoaffective disorder and we will see if we can get something to help her with the delirium and confusion. 3. Discharge planning. I think she lives at a snf. She is going to have to have some assistance. She needs CPAP at night. I am not sure if that is even feasible so will see we can get. cc: Wily Hernandez MD
--- NOTE | 2016-08-31 15:49 | Diag Imaging Result Document ---
PROCEDURE NAME: CHEST-1 VIEW - 08/31/2016 AP PORTABLE CHEST DATED 08/31/2016 AT 05:25 HOURS: FINDINGS: There is a calcified granuloma in the left base. There are calcified nodes in the left hilum and AP window. Compared to the previous study of 08/30/2016, there has been clearing of the left costophrenic angle region. No evidence of acute pulmonary disease is present at this time. The heart size and pulmonary vascularity are within normal limits. IMPRESSION: No acute disease.
[2016-08-31 16:25] LABS: ALLEN TEST YES; BE 17.7 mmoll (-3.0-3.0); BLOOD TYPE ARTERIAL; DRAW SITE R RADIAL; METHB 1.7 % (0.0-1.5); O2(CT) 17.4 mL/dL (15.0-23.0); PO2(98.6) 156 mmHg (60-100); SAMPLE BLOOD; SAO2 99.8 % (95.0-100.0); THB 12.7 g/dL (11.5-17.4); pH(98.6) 7.39 (7.35-7.45)
[2016-08-31 17:06] LABS: BASO% 0.2 % (0.0-0.8); EOS# 0.11 X1000 (0.0-0.7); EOS% 2.7 % (0.0-10.0); HEMATOCRIT 41.2 % (37.0-47.0); HEMOGLOBIN 12.9 g/dL (12.0-16.0); LYMPH# 0.91 X1000 (1.2-3.4); LYMPH% 22.3 % (20.5-51.1); MANUAL DIFF NEEDED? NO; MCH 30.7 PG (27-31); MCHC 31.3 g/dL (33-37); MCV 98.1 FL (81-99); MONO# 0.61 X1000 (0.11-0.59); MPV 9.1 FL (7.4-10.4); NEUT% 59.8 % (42.2-75.2); PLT 129 X1000 (130-400)
[2016-08-31 17:07] LABS: MAGNESIUM 1.7 mg/dL (1.5-2.7)
[2016-08-31 17:08] LABS: AGAP 12; BUN 5 mg/dL (8-22); CALCIUM 8.6 mg/dL (8.8-10.2); CHLORIDE 96 mmol/L (98-107); COSMO 289; POTASSIUM 3.2 mmol/L (3.5-5.1); SODIUM 146 mmol/L (136-145); TCO2 38 mmol/L (25-35)
[2016-08-31 18:16] LABS: PCO2(98.6) 77 mmHg (35-45)
[2016-08-31 18:17] LABS: MODALITY VENTIMASK
[2016-08-31] MEDS: DEPAKOTE ER PO SCH (20:23)
[2016-08-31 20:45] LABS: INR 1.11; PROTIME 11.7 Seconds (9.2-11.7)
[2016-08-31] MEDS: PROTONIX IV SCH (22:28)
[2016-09-01] MEDS: DUONEB (A & A) INH SCH ×4 (03:20→19:35)
[2016-09-01 04:24] LABS: ALLEN TEST YES; BE 13.5 mmoll (-3.0-3.0); BLOOD TYPE ARTERIAL; DRAW SITE R RADIAL; METHB 1.3 % (0.0-1.5); PO2(98.6) 125 mmHg (60-100); SAMPLE BLOOD; SAO2 100.2 % (95.0-100.0); THB 14.7 g/dL (11.5-17.4); pH(98.6) 7.36 (7.35-7.45)
[2016-09-01 04:25] LABS: MANUAL DIFF NEEDED? NO
[2016-09-01 04:25] LABS: PCO2(98.6) 76 mmHg (35-45)
[2016-09-01 04:26] LABS: MODALITY CANNULA
[2016-09-01 04:29] LABS: BASO% 0.3 % (0.0-0.8); EOS# 0.14 X1000 (0.0-0.7); EOS% 3.6 % (0.0-10.0); HEMATOCRIT 39.8 % (37.0-47.0); HEMOGLOBIN 12.4 g/dL (12.0-16.0); LYMPH# 1.22 X1000 (1.2-3.4); LYMPH% 31.4 % (20.5-51.1); MCH 30.5 PG (27-31); MCHC 31.2 g/dL (33-37); MONO# 0.59 X1000 (0.11-0.59); MONO% 15.2 % (1.7-9.3); MPV 9.1 FL (7.4-10.4); NEUT% 49.5 % (42.2-75.2); PLT 125 X1000 (130-400); RBC 4.06 XMIL (4.2-5.4)
[2016-09-01 04:44] LABS: AGAP 8; CHLORIDE 97 mmol/L (98-107); POTASSIUM 3.7 mmol/L (3.5-5.1); SODIUM 141 mmol/L (136-145); TCO2 36 mmol/L (25-35)
[2016-09-01 04:45] LABS: BUN 7 mg/dL (8-22); CALCIUM 8.6 mg/dL (8.8-10.2); COSMO 280
[2016-09-01] MEDS: LOVENOX SUBQ SCH (05:02)
--- NOTE | 2016-09-01 09:04 | Diag Imaging Result Document ---
PROCEDURE NAME: CHEST-1 VIEW - 09/01/2016 PORTABLE CHEST: Compared with 08/31/2016. FINDINGS: Heart size appears within normal limits. There is a calcified granuloma from old granulomatous disease at the left base which is stable. The lungs otherwise appear clear. There is no pleural effusion or pneumothorax identified. IMPRESSION: No evidence of acute disease.
[2016-09-01] MEDS: PROTONIX PO SCH (09:17)
[2016-09-01] MEDS: PRINIVIL PO SCH ×2 (09:18→20:11)
[2016-09-01] MEDS: COGENTIN PO SCH ×2 (09:18→20:11)
[2016-09-01] MEDS: ZYPREXA PO SCH (09:18)
[2016-09-01] MEDS: DALIRESP PO SCH (09:18)
[2016-09-01] MEDS: CARDIZEM CD PO SCH (09:18)
--- NOTE | 2016-09-01 10:04 | PROGRESS NOTE ---
DATE: 09/01/2016 SUBJECTIVE: Ms. Valentin is lethargic this morning but she is calm and relaxed. She is appropriate and answering questions. We started her on Zyprexa 5 mg q.a.m. and she is also getting phenobarbital. Breathing appears to be comfortable. PHYSICAL EXAMINATION: Vital Signs: Temperature 97.8 degrees, pulse 70, respirations 18, blood pressure 120/44. HEENT: Pupils are equal, round, and reactive to light and accommodation. Oral and nasal mucosa unremarkable. Conjunctivae pink. Sclerae clear. Tympanic membranes intact. Neck: Supple without adenopathy or thyromegaly. LAB: White count 3890, hematocrit 39, platelet count 125,000. Sodium 141, potassium 3.7, chloride 97, bicarb 36, BUN 7, creatinine 0.4. Blood sugar 104, 97, 112, 95. Calcium 8.6. Chest x-ray, no evidence acute disease this morning. There are no pleural effusions. No pneumothorax. ASSESSMENT AND PLAN: 1. Chronic obstructive pulmonary disease, hypercapnia, hypoxemia, hypoventilation syndrome with morbid obesity. Appears to be moving air a little better. Her blood gases this morning, pH was 7.36, pCO2 76, PO2 125, O2 saturation 100%. She is on 5 L of 40% cannula. Bicarbonate was 36. Anion gap is 8. Chronic obstructive pulmonary disease, hypercapnia, hypoxemia, hypoventilation syndrome, morbid obesity in the face of schizoaffective disorder. I started her on Zyprexa. We are using phenobarbital as well. I think we can back down the phenobarbital. She is a little bit lethargic but she is more appropriate and calm. Gas exchange is about the same as yesterday. 2. Schizoaffective disorder. Started her on Zyprexa. 3. Discharge planning. She, I think, lives at the residential so we need to get social service to help us. If she will need CPAP and O2, that may be a challenge. cc: Wily Hernandez MD
[2016-09-01] MEDS: HALDOL IM PRN (10:11)
[2016-09-01] MEDS: PHENOBARBITAL IM PRN ×2 (11:55→19:15)
[2016-09-01] MEDS: DEPAKOTE ER PO SCH (20:11)
[2016-09-02] MEDS: DUONEB (A & A) INH SCH ×4 (02:50→19:15)
[2016-09-02 04:22] LABS: ALLEN TEST YES; BE 15.6 mmoll (-3.0-3.0); BLOOD TYPE ARTERIAL; DRAW SITE R RADIAL; METHB 1.4 % (0.0-1.5); O2(CT) 17.3 mL/dL (15.0-23.0); PO2(98.6) 89 mmHg (60-100); SAMPLE BLOOD; SAO2 99.6 % (95.0-100.0); THB 12.9 g/dL (11.5-17.4); pH(98.6) 7.38 (7.35-7.45)
[2016-09-02 04:23] LABS: MODALITY CANNULA; PCO2(98.6) 75 mmHg (35-45)
[2016-09-02] MEDS: LOVENOX SUBQ SCH (05:03)
--- NOTE | 2016-09-02 05:43 | EKG Report ---
Test Performed on : 09/01/2016 07:36:51 AM Test Reason : Poss ST elevation Blood Pressure : / mmHG Vent. Rate : 071 BPM Atrial Rate : 071 BPM P-R Int : 138 ms QRS Dur : 090 ms QT Int : 416 ms P-R-T Axes : 060 072 045 degrees QTc Int : 452 ms Normal sinus rhythm. Nonspecific ST and T wave abnormality Abnormal ECG No previous ECGs available Confirmed by Atul REDDY, Monroe Barbour ([id number]) on 09/02/2016 9:22:15 AM
[2016-09-02 05:52] LABS: MANUAL DIFF NEEDED? NO
[2016-09-02 05:54] LABS: EOS# 0.16 X1000 (0.0-0.7); EOS% 3.4 % (0.0-10.0); HEMATOCRIT 39.7 % (37.0-47.0); HEMOGLOBIN 12.5 g/dL (12.0-16.0); LYMPH# 1.73 X1000 (1.2-3.4); LYMPH% 37.1 % (20.5-51.1); MCH 30.6 PG (27-31); MCHC 31.5 g/dL (33-37); MCV 97.3 FL (81-99); MONO# 0.76 X1000 (0.11-0.59); MONO% 16.3 % (1.7-9.3); MPV 9.7 FL (7.4-10.4); NEUT% 43.2 % (42.2-75.2); PLT 115 X1000 (130-400); RBC 4.08 XMIL (4.2-5.4)
[2016-09-02 06:18] LABS: AGAP 9; BUN 12 mg/dL (8-22); CALCIUM 8.8 mg/dL (8.8-10.2); CHLORIDE 95 mmol/L (98-107); COSMO 278; SODIUM 140 mmol/L (136-145); TCO2 36 mmol/L (25-35)
--- NOTE | 2016-09-02 08:09 | Diag Imaging Result Document ---
PROCEDURE NAME: CHEST-1 VIEW - 09/02/2016 AP PORTABLE CHEST ERECT, 09/02/2016 AT 0520 HOURS: FINDINGS: There is no evidence of acute cardiac or pulmonary disease. Compared to 09/01/2016 there is slightly better inspiration. IMPRESSION: No acute disease.
[2016-09-02] MEDS: PRINIVIL PO SCH ×2 (09:06→20:56)
[2016-09-02] MEDS: PROTONIX PO SCH (09:06)
[2016-09-02] MEDS: DALIRESP PO SCH (09:06)
[2016-09-02] MEDS: COGENTIN PO SCH ×2 (09:06→20:56)
[2016-09-02] MEDS: ZYPREXA PO SCH (09:06)
[2016-09-02] MEDS: CARDIZEM CD PO SCH (09:06)
--- NOTE | 2016-09-02 10:12 | PROGRESS NOTE ---
DATE: 09/02/2016 SUBJECTIVE: Ms. Valentin is lethargic. Much more cooperative. Her breathing is comfortable. She is on nasal cannula. OBJECTIVE: Vital signs: Temperature 97.7 degrees, pulse 85, respirations 26, blood pressure 119/56. HEENT: Pupils are equal, round. Lungs: Clear in all lung wei. Cardiovascular: Regular rhythm and rate without murmur or S3. Abdomen: Soft. Skin: Warm and dry. Intake and output: Urine output over 2 L. LABORATORY: White blood cell count this morning 4,660, hematocrit 39, platelet count 115,000. Sodium 140, potassium 4.0, chloride 95, bicarb 36. Blood sugars 71, 173, and 81. Creatinine 0.4. Chest x-ray from this morning: No acute disease, clear. ASSESSMENT AND PLAN: 1. Chronic obstructive pulmonary disease, obstructive apnea, hypoventilation with chronic hypoxemia and hypercapnia. She is improving air and gas exchange. She is on nasal cannula at this time. 2. Schizoaffective disorder, agitation, confusion. I started her on Zyprexa daily 5 mg using phenobarbital to kind of help with agitation. Still requiring 4-point restraints. 3. Encourage p.o. intake. See if we can let her wake up a little bit and then if we have to look at what her discharge plan is. I think she lives at the group home. She is on Cogentin 1 mg b.i.d., Zyprexa 5 mg q.a.m. We are giving phenobarbital IM q.8 hours p.r.n. She is on roflumilast 500 mcg daily, lisinopril 10 mg b.i.d., and Depakote ER 1000 mg at bedtime. I think all of this was for a history of schizoaffective disorder. cc: Wily Hernandez MD
[2016-09-02] MEDS: HALDOL IM PRN ×2 (14:32→20:56)
[2016-09-02] MEDS: PHENOBARBITAL IM PRN (16:51)
[2016-09-02] MEDS: DEPAKOTE ER PO SCH (20:56)
[2016-09-03] MEDS: DUONEB (A & A) INH SCH ×3 (02:47→15:28)
[2016-09-03 04:36] LABS: ALLEN TEST YES; BE 9.9 mmoll (-3.0-3.0); BLOOD TYPE ARTERIAL; DRAW SITE R RADIAL; METHB 1.6 % (0.0-1.5); O2(CT) 19.3 mL/dL (15.0-23.0); PO2(98.6) 63 mmHg (60-100); SAMPLE BLOOD; SAO2 94.7 % (95.0-100.0); THB 15.1 g/dL (11.5-17.4); pH(98.6) 7.37 (7.35-7.45)
[2016-09-03 04:37] LABS: MODALITY CANNULA; PCO2(98.6) 66 mmHg (35-45)
[2016-09-03] MEDS: LOVENOX SUBQ SCH (05:29)
[2016-09-03 06:20] LABS: MANUAL DIFF NEEDED? NO
[2016-09-03 06:24] LABS: BASO% 0.2 % (0.0-0.8); EOS# 0.13 X1000 (0.0-0.7); EOS% 2.8 % (0.0-10.0); HEMATOCRIT 41.2 % (37.0-47.0); HEMOGLOBIN 13.2 g/dL (12.0-16.0); LYMPH# 1.73 X1000 (1.2-3.4); LYMPH% 37.4 % (20.5-51.1); MCV 96.7 FL (81-99); MONO# 0.81 X1000 (0.11-0.59); MONO% 17.5 % (1.7-9.3); MPV 9.9 FL (7.4-10.4); NEUT% 42.1 % (42.2-75.2); PLT 100 X1000 (130-400); RBC 4.26 XMIL (4.2-5.4)
[2016-09-03 07:04] LABS: AGAP 13; BUN 8 mg/dL (8-22); CALCIUM 8.9 mg/dL (8.8-10.2); CHLORIDE 96 mmol/L (98-107); COSMO 275; POTASSIUM 4.6 mmol/L (3.5-5.1); SODIUM 139 mmol/L (136-145); TCO2 30 mmol/L (25-35)
--- NOTE | 2016-09-03 07:48 | Diag Imaging Result Document ---
PROCEDURE NAME: CHEST-1 VIEW - 09/03/2016 SINGLE FRONTAL RADIOGRAPH OF THE CHEST: COMPARISON: 09/02/2016. FINDINGS: No new consolidations are identified. There is no definite pleural fluid collection. Cardiac silhouette and central vasculature are stable and unremarkable. IMPRESSION: Stable chest with no definite acute pathology.
[2016-09-03] MEDS: DALIRESP PO SCH (08:18)
[2016-09-03] MEDS: ZYPREXA PO SCH (08:18)
[2016-09-03] MEDS: PRINIVIL PO SCH ×2 (08:18→21:28)
[2016-09-03] MEDS: COGENTIN PO SCH ×2 (08:19→21:26)
[2016-09-03] MEDS: CARDIZEM CD PO SCH (08:19)
[2016-09-03] MEDS: PROTONIX PO SCH (08:19)
--- NOTE | 2016-09-03 11:18 | PROGRESS NOTE ---
DATE: 09/03/2016 SUBJECTIVE: This morning, the attending nurse said Ms. Valentin was doing okay; however, she occasionally gets very confused and agitated so they had to intermittently put her in restraints. OBJECTIVE: Vital Signs: Blood pressure is 92/58, pulse is 89, respiration is 17. The patient is saturating about 94% on 4 L of nasal cannula. Ms. Valentin is a 55-year-old female. She was in bed. She does not seems to be in any remarkable distress. HEENT: Mucosa is pink and moist. Anicteric. Acyanotic. Neck is supple. Chest: Air entry is bilaterally reduced. The chest has a barrel shape. No crepitations. There is a prolonged expiratory phase of respiration. Cardiovascular: Regular rate and rhythm. No murmurs, no rubs. Abdomen is soft. Extremities: No pedal edema. DX BOARD OPERATOR: The patient is drowsy, sleepy, but she is easily arousable. She follows some basic commands; however, she looks confused. LABORATORY DATA: WBC is 4.63, hemoglobin is 13.2, platelet count is 100,000. Chemistry is reviewed and completely unremarkable. MEDICATIONS: Reviewed. Currently on 1. Diltiazem 180 p.o. daily. 2. Depakote 1000 mg at bedtime. 3. Lovenox 40 subcutaneous daily. 4. Haldol p.r.n. 5. Lisinopril 10 mg b.i.d. 6. Olanzapine 5 mg p.o. 7. Protonix 40 p.o. daily. 8. Phenobarbital 130 mg IM q. 8. 9. Roflumilast 500 mcg daily. DIAGNOSTIC STUDIES: A chest x-ray done this morning shows stable chest. No definite acute pathology. ABGs: pH is 7.37, pCO2 is 66, PaO2 is 63. This was on nasal canula. ASSESSMENT: 1. Klaak-yn-mhcnahm respiratory failure (ventilatory failure). 2. Chronic respiratory acidosis with metabolic compensation. 3. Chronic obstructive pulmonary disease exacerbation. 4. Schizoaffective disorder. 5. Altered mental status, likely related to medications. 6. Delirium, likely secondary to ICU stay, as well as medications. In general, I think Ms. Valentin seems to be fine from a respiratory standpoint. PCO2 is gradually coming down. I the think patient will be able to be moved to the floor if we need beds. If not, we will observe her 1 more day in the ICU. I am going to continue with the current medications. I have not made any changes. cc: Emeka Cristina MD
[2016-09-03] MEDS: DEPAKOTE ER PO SCH (21:26)
[2016-09-04] MEDS: DUONEB (A & A) INH SCH ×4 (03:39→19:31)
[2016-09-04] MEDS: LOVENOX SUBQ SCH (06:12)
--- NOTE | 2016-09-04 07:37 | Diag Imaging Result Document ---
PROCEDURE NAME: CHEST-1 VIEW - 09/04/2016 SINGLE FRONTAL RADIOGRAPH OF THE CHEST: COMPARISON: 09/03/2016. FINDINGS: No new consolidations are identified. There is no pleural fluid collection. Cardiac silhouette and central vasculature are essentially unremarkable and stable. IMPRESSION: Stable chest with no definite acute pathology.
[2016-09-04 08:23] LABS: BASO% 0.2 % (0.0-0.8); EOS# 0.09 X1000 (0.0-0.7); EOS% 2.1 % (0.0-10.0); HEMATOCRIT 41.8 % (37.0-47.0); HEMOGLOBIN 13.3 g/dL (12.0-16.0); LYMPH# 1.55 X1000 (1.2-3.4); MANUAL DIFF NEEDED? YES; MCH 30.6 PG (27-31); MCHC 31.8 g/dL (33-37); MCV 96.1 FL (81-99); MONO% 20.9 % (1.7-9.3); MPV 10.3 FL (7.4-10.4); NEUT% 40.8 % (42.2-75.2); PLT 94 X1000 (130-400); RBC 4.35 XMIL (4.2-5.4)
[2016-09-04] MEDS: PRINIVIL PO SCH ×3 (08:40→20:25)
[2016-09-04] MEDS: COGENTIN PO SCH ×2 (08:40→20:26)
[2016-09-04] MEDS: DALIRESP PO SCH (08:40)
[2016-09-04] MEDS: CARDIZEM CD PO SCH ×2 (08:40→09:26)
[2016-09-04] MEDS: PROTONIX PO SCH (08:40)
[2016-09-04] MEDS: ZYPREXA PO SCH (08:40)
[2016-09-04 08:57] LABS: BANDS 2 % (0-1); LYMPHS 46 % (21-51); MONO 12 % (1-9)
[2016-09-04 09:33] LABS: AGAP 6; BUN 8 mg/dL (8-22); CALCIUM 8.9 mg/dL (8.8-10.2); CHLORIDE 96 mmol/L (98-107); COSMO 269; POTASSIUM 4.3 mmol/L (3.5-5.1); SODIUM 136 mmol/L (136-145); TCO2 34 mmol/L (25-35)
--- NOTE | 2016-09-04 11:09 | PROGRESS NOTE ---
DATE: 09/04/2016 SUBJECTIVE: Today, Ms. Valentin referred to be doing relatively fine. She is more alert and more communicative. She says she normally follows up with Dr. Singh in [facility] for her mental issues and she lives with Mr Majano. OBJECTIVE: Vital signs: Blood pressure is 109/57, pulse is 81, respirations is 17, temperature 98.5 degrees. General: Ms. Valentin is a 59-year-old female. She is in bed, does not seem to be in any distress. HEENT: Mucosa is pink and moist. Anicteric. Acyanotic. Neck: Supple. Chest: Air entry is bilaterally reduced with a few bibasilar crepitations and some few distant expiratory wheezing. Cardiovascular: Regular rate and rhythm. Abdomen : Soft. Extremities: No pedal edema. INSTRUCTOR MODELING: Patient is alert, is oriented to place and person. Seems to have good insight of what is going on with her. LABORATORY DATA: WBC is 4.31, hemoglobin is 13.3, platelet count of 94,000. There are no bands on the peripheral smear. Chemistry is reviewed, completely normal. The chest x-ray this morning shows no new consolidation. There is no pleural effusion. Stable chest with no definite acute pathology. There was no ABG for this morning. The patient is saturating normal on room air. ASSESSMENT: 1. Acute on chronic respiratory failure (hypercarbic). This seems to have resolved with the BiPAP. 2. Chronic obstructive pulmonary disease exacerbation, improved. 3. Chronic respiratory acidosis with metabolic compensation. 4. Schizoaffective disorder. 5. Altered mental status yesterday. This seems to have improved. 6. Delirium resolved. 7. History of drug abuse in the past. 8. Hypertension controlled. PLAN: In general, I think Ms. Valentin is doing a whole lot better today. We are going to discontinue the Valente catheter. So the general plan, we are going to discontinue the Valente catheter. We will move Ms. Valentin from the ICU to regular floor. We are going to consult Ortega Mckeon to evaluate the patient. We will also get PT to work with her. I think by tomorrow we should it we should be able to discharge her home if it is okay with Ortega Mckeon evaluation. cc: Emeka Cristina MD MTDD
[2016-09-04] MEDS: DEPAKOTE ER PO SCH (20:26)
[2016-09-04] MEDS: HALDOL IM PRN (21:26)
[2016-09-05] MEDS: DUONEB (A & A) INH SCH ×2 (03:02→09:50)
[2016-09-05 04:05] LABS: ALLEN TEST YES; BE 8.3 mmoll (-3.0-3.0); BLOOD TYPE ARTERIAL; DRAW SITE R RADIAL; METHB 1.7 % (0.0-1.5); O2(CT) 18.1 mL/dL (15.0-23.0); PO2(98.6) 81 mmHg (60-100); SAMPLE BLOOD; SAO2 97.3 % (95.0-100.0); THB 13.8 g/dL (11.5-17.4); pH(98.6) 7.35 (7.35-7.45)
[2016-09-05 04:07] LABS: MODALITY CANNULA; PCO2(98.6) 66 mmHg (35-45)
[2016-09-05] MEDS: HALDOL IM PRN (04:51)
[2016-09-05] MEDS: LOVENOX SUBQ SCH (05:24)
[2016-09-05 05:50] LABS: MANUAL DIFF NEEDED? NO
[2016-09-05 05:53] LABS: BASO% 0.2 % (0.0-0.8); EOS# 0.07 X1000 (0.0-0.7); EOS% 1.3 % (0.0-10.0); HEMATOCRIT 35.2 % (37.0-47.0); HEMOGLOBIN 11.5 g/dL (12.0-16.0); IMM GRAN# 0.02 X1000 (0.0-0.04); IMM GRAN% 0.4 % (0.0-0.5); LYMPH# 1.85 X1000 (1.2-3.4); LYMPH% 34.5 % (20.5-51.1); MCH 30.7 PG (27-31); MCHC 32.7 g/dL (33-37); MCV 93.9 FL (81-99); MONO# 1.03 X1000 (0.11-0.59); MONO% 19.2 % (1.7-9.3); MPV 10.4 FL (7.4-10.4); NEUT% 44.4 % (42.2-75.2); PLT 104 X1000 (130-400); RBC 3.75 XMIL (4.2-5.4)
[2016-09-05 06:09] LABS: AGAP 7; BUN 18 mg/dL (8-22); CALCIUM 8.2 mg/dL (8.8-10.2); CHLORIDE 89 mmol/L (98-107); COSMO 262; POTASSIUM 4.8 mmol/L (3.5-5.1); SODIUM 130 mmol/L (136-145); TCO2 34 mmol/L (25-35)
--- NOTE | 2016-09-05 07:26 | Diag Imaging Result Document ---
PROCEDURE NAME: CHEST-1 VIEW - 09/05/2016 PORTABLE CHEST X-RAY: COMPARISON: 09/04/2016. FINDINGS: Stable calcified granulomas in the left lung base and left hilum. No focal infiltrates, pneumothorax, or pleural effusion. Heart size is normal. IMPRESSION: No acute disease.
[2016-09-05] MEDS: CARDIZEM CD PO SCH (09:22)
[2016-09-05] MEDS: ZYPREXA PO SCH (09:22)
[2016-09-05] MEDS: COGENTIN PO SCH (09:22)
[2016-09-05] MEDS: DALIRESP PO SCH (09:22)
[2016-09-05] MEDS: PRINIVIL PO SCH (09:22)
[2016-09-05] MEDS: PROTONIX PO SCH (09:22)
[2016-09-05 11:06] LABS: UR CREAT RANDOM 37.3 mg/dL (11-20)
[2016-09-05 11:24] VITALS: BP 93/47
--- NOTE | 2016-09-06 11:20 | DISCHARGE SUMMARY ---
ADMISSION DATE: 08/27/2016 DISCHARGE DATE: 09/05/2016 CONSULTATION: Dr. Triana of pulmonology. PERTINENT PROCEDURES: 1. Initial chest x-ray showed mild prominence of central vascular markings. No other acute changes. 2. Final chest x-ray showed stable calcified granulomas in the left lung base and left hilum. No focal infiltrates, pneumothorax, or pleural effusion. Heart size was normal. No acute disease. DISCHARGE DIAGNOSES: 1. Acute on chronic respiratory failure, hypercapnic, resolved. 2. Chronic obstructive pulmonary disease exacerbation, improved. 3. Chronic respiratory acidosis with metabolic compensation. 4. Schizoaffective disorder. Continue on home medications. 5. Altered mental status, improved. 6. Delirium, resolved. 7. History of drug abuse in the past. 8. Hypertension, controlled. HOSPITAL COURSE: Briefly, Ms. Valentin is a 55-year-old, female, past medical history of COPD, who continues to smoke several packs a day of cigarettes, schizoaffective disorder, seizure disorder, and complaining of shortness of breath to the point that her primary care physician was concerned about her breathing and wanted her to get an ABG to see if she qualifies for home O2. When she got her lab results back, her blood work was deemed to be grossly abnormal. She was sent to the ED. While reviewing her labs, she was put on BiPAP with an FiO2 of 35%. Her blood gas was pH of 7.34, pCO2 74, and a PO2 of 57. Initially when the doctor assessed the patient, she was calm and then she stated that she wanted to leave the hospital. She was being held here against her will. She got very agitated and belligerent. She has got a friend at the bedside, who said prior to coming to the hospital the patient was very lethargic and confused. Since she had the BiPAP on, she has been more awake and coherent. Whenever her oxygen level improved and her calming down improves, she gets more belligerent and very uncooperative. Patient agreed to stay and she was admitted for acute on chronic respiratory failure secondary to her COPD. She was continued on BiPAP support by serial ABGs and chest x-rays, as well as IV Lasix to mildly diurese her. She was also given p.r.n. Haldol with Ativan to keep her calm so she can continue on the BiPAP machine for optimal benefit, as well as bronchodilators. NicoDerm patch to prevent any nicotine withdrawals, as well as agitation, due to the fact that she smokes 5 packs of cigarettes per day, as well as a pulmonology consult. Ms. Valentin required several days in the ICU requiring BiPAP. She was able to come off the BiPAP. Her breathing was more comfortable. She was tolerating nasal cannula. She improved her air-gas exchange. She was also started on Zyprexa in reference to her schizoaffective disorder, as well as agitation and confusion, with p.r.n. phenobarbital. She did at 1 point require four-point restraints. Ms. Valentin did become more cooperative. She was able to get out of her restraints. She did have transfer orders to move out of the ICU to the floor. However, unfortunately due to bed holds, the patient remained in the ICU. We consulted [facility] to evaluate the patient to see if she was appropriate to go back to [facility]. The patient has been approved to go back to [facility] with Ms. Alaniz. Patient is appropriate for discharge today. VITAL SIGNS: Temperature is 99 degrees, heart rate 101, respirations 20, blood pressure 93/47, O2 is 97% on 2 L nasal cannula. DISCHARGE DIET: Diabetic. DISCHARGE MEDICATIONS: 1. Cogentin 1 mg p.o. b.i.d. 2. Cardizem CD 180 mg p.o. daily. 3. Depakote ER 1000 mg p.o. at bedtime. 4. Lasix 40 mg p.o. daily. 5. Prinivil 10 mg p.o. b.i.d. 6. Zyprexa 5 mg p.o. q.a.m. 7. Protonix 40 mg p.o. q.a.m. 8. Daliresp 500 mcg p.o. daily. FOLLOW UP: The patient is being discharged back to [facility] with Ms. Alaniz, where she will continue with her home O2. She will need to follow up with Dr. Triana, as well as her primary care physician, Dr. Cruzito Pichardo, in 7-10 days. Patient has been discussed ad nauseam against smoking cessation, as well as the need to quit. Patient can return to the ED for any worsening of symptoms. DISCHARGE TIME: 30 minutes. Dictated by KYLE Dickey for Emeka Cristina MD cc: Emeka Cristina MD
== END 2016-09-05 15:15 | disposition home or self-care (01) ==
LOC: ED 14:35 → EDIPHOLD 23:01 → SUATTDRO 23:01 → ICU 08-28 13:58
PROVIDERS: ATTEND Internal Medicine

== ENCOUNTER 2016-09-21 03:09 | Inpatient (IN) ==
[2016-09-21] MEDS ORDERED: DUONEB (A & A) INH ONE (03:21)
[2016-09-21] MEDS ORDERED: TYLENOL PO ONE (03:23)
[2016-09-21] MEDS ORDERED: ROCEPHIN 1 GM/NS 1 GM/50 ML IVPB IV ONE (03:47)
[2016-09-21] MEDS ORDERED: SOLU-MEDROL IV ONE (03:47)
[2016-09-21] MEDS ORDERED: ZITHROMAX 500 MG/NS 500 MG/250 ML IVPB IV ONE (03:48)
[2016-09-21 03:55] LABS: MANUAL DIFF NEEDED? NO
--- NOTE | 2016-09-21 03:57 | PROVIDER DOCUMENTATION ---
HPI-Respiratory General - General Chief Complaint: Shortness of Breath Stated Complaint: shortness of breath Time Seen by Provider: 09/21/16 03:23 Source: patient, EMS Allergies/Adverse Reactions: Patient Allergies Allergy/AdvReac Type Severity Reaction Status Date / Time aspirin Allergy Unknown Unknown Verified 09/21/16 03:17 Penicillins Allergy Unknown Unknown Verified 09/21/16 03:17 Home Medications: Home Medication List Medication Instructions Recorded Confirmed Last Taken Type Benztropine [Cogentin] 1 mg PO BID 08/09/15 09/21/16 09/20/16 History Divalproex E.r. [Depakote ER] 1,000 mg PO HS 08/08/16 09/21/16 09/20/16 History Diltiazem C.d. [Cardizem Cd] 180 mg PO DAILY #30 capsule 08/16/16 09/21/1609/20 Rx Furosemide [Lasix] 40 mg PO DAILY #30 tablet 08/16/16 09/21/16 09/20/16 Rx LISINOpril [Prinivil] 10 mg PO BID #60 tablet 08/16/16 09/21/16 09/20/16 Rx Olanzapine [Zyprexa] 5 mg PO QAM #30 tablet 09/05/16 09/21/16 09/20/16 Rx Pantoprazole [Protonix] 40 mg PO QAM #30 tablet 09/05/16 09/21/16 09/20/16 Rx Roflumilast [Daliresp] 500 microgm PO DAILY #30 tablet 09/05/16 09/21/16 Rx Amlodipine Besylate 5 mg PO DAILY 09/22/16 09/22/16 Unknown History Haloperidol Decanoate 1 applic IM DIRECTED 09/22/16 09/22/16 08/20/16 History Levofloxacin [Levaquin] 500 mg PO DAILY #5 tablet 09/24/16 Unknown Rx Prednisone 20 mg PO DAILY #10 tablet 09/24/16 Unknown Rx - History of Present Illness-Resp Nature of Presenting Problem: pt states she has felt SOB fo5r a month and has a chronic cough that has worsened today and is productive of yellow sputum. She noticed a fever tonight. She has anterior CP when she coughs or takes deep breaths. She vomited once yesterday. No diarrhea. She continues to smoke 1ppd Review of Systems - Adult - REVIEW OF SYSTEMS - ADULT Constitutional: reports: chills, fever, fatique Eyes: denies: discharge Ears, Nose, Mouth & Throat: denies: ear pain, sinus problem, throat pain Cardiovascular: reports: chest pain. denies: edema Respiratory: reports: chronic cough, cough, dyspnea on exertion, excessive sputum production, pleurisy, shortness of breath, wheezing Gastrointestinal: reports: nausea, vomiting. denies: abdominal pain, diarrhea Genitourinary: denies: dysuria, frequency, flank pain Musculoskeletal: denies: back pain, neck pain Integumentary: denies: rash Neurological: denies: headache/migraines, numbness, paresthesia Psychiatric: reports: other (hx of schizophrenia) Endocrine: reports: no symptoms reported Hematologic/Lymphatic: reports: no symptoms reported Allergic/Immunologic: reports: no symptoms reported All Other Systems: Reviewed and Negative Past History - Adult - PAST MEDICAL HISTORY-ADULT Review of Records: reports: Old Records Reviewed, Nursing Assessment Review, Medications Reviewed, Social history reviewed & non-contributory. Major Childhood Illnesses: reports: denies history Cardiovascular: reports: arrhythmia, HTN Respiratory: reports: asthma, COPD Gastrointestinal: reports: denies history Obstetrical/Gynecological: reports: denies history Genitourinary: reports: denies history Musculoskeletal: reports: denies history Neurological: reports: Seizures/Epilepsy Psychiatric: reports: bipolar, schizophrenia Endocrine/Immune: reports: denies history Other Conditions: reports: denies history - PRIOR SURGERIES/PROCEDURES Surgical/Procedure History: reports: reviewed, not pertinent - IMMUNIZATION STATUS Childhood Immunizations: See Nurse Assessment Flu Vaccine: See Nurse Assessment - FAMILY HISTORY Family History: reviewed, not pertinent - SOCIAL HISTORY Smoking: greater than 1 pack/day Living Situation: alone Physical Exam-General - PHYSICAL EXAM-ADULT Initial Vital Signs Reviewed: Yes - CONSTITUTIONAL General Appearance: alert, mild distress, anxious - EYES Eyes: pink conjunctivae - HEAD, EARS, NOSE, MOUTH & THROAT HENMT: normocephalic/atraumatic, TMs normal, pharynx normal - NECK Neck: non-tender, full range of motion, supple, normal inspection. negative: lymphadenopathy - RESPIRATORY Respiratory: chest non-tender, no pleuratic chest pain, no respiratory distress , no accessory muscle use, decreased breath sounds, wheezing. negative: lungs clear, normal breath sounds - CARDIOVASCULAR Cardiovascular: no edema, no murmur, tachycardia - GASTROINTESTINAL (ABDOMEN) Abdominal Exam: normal bowel sounds, non tender, soft, no organomegaly, no pulsatile mass - MUSCULOSKELETAL Back Exam: normal inspection, no CVA tenderness, no vertebral tenderness Extremity: normal range of motion, non-tender, normal gait, normal inspection, no pedal edema, no calf tenderness - SKIN Integumentary: normal color, normal turgor, warm/dry - NEUROLOGIC Neurologic: delinquency prevention social worker II-XII nml as tested, grossly normal, no motor/sensory deficits - PSYCHIATRIC Psych/Mental Status: normal mood/affect, normal thought content, normal thought process, oriented x 3 Progress - PLAN OF CARE/RESULTS Progress/Plan/Lab Results: 09/21/16 05:33 Blood Culture - Final Blood NO GROWTH AFTER 5 DAYS 09/21/16 05:33 Blood Culture - Final Blood NO GROWTH AFTER 5 DAYS Orders Category Date Time Status Admit - [facility] Routine AdmDCTranf 09/21/16 07:47 Ordered Activity - Bed Rest with BRP ORDERED Care 09/21/16 07:47 Active Cardiac Monitoring DIRECTED Care 09/21/16 03:23 Completed IV Insertion ORDERED Care 09/21/16 03:23 Completed Notify MD of + Sepsis Screen NOW Care 09/21/16 03:23 Completed Oxygen Therapy- ED Nursing DIRECTED Care 09/21/16 03:21 Completed Saline Loc DIRECTED Care 09/21/16 03:21 Completed Vital Signs Order Q 4-HR ASSESS Care 09/21/16 07:47 Active Heart Healthy Diet Diet 09/21/16 07:49 Completed CHEST-2 VIEWS [RAD] Stat Exams 09/21/16 03:23 Completed ABG [RESP] Routine Lab 09/21/16 07:10 Completed BLOOD CULTURE [BLDCUL] Stat Lab 09/21/16 05:33 Completed CBC WITH DIFF [HEME] Stat Lab 09/21/16 03:40 Completed CK PROFILE [SP CHEM] Stat Lab 09/21/16 03:40 Completed COMPREHENSIVE METABOLIC PANEL [CHEM] Stat Lab 09/21/16 03:40 Completed LACTATE, PLASMA [CHEM] Stat Lab 09/21/16 03:40 Completed PROTIME WITH INR PL [COAG] Stat Lab 09/21/16 03:[address] [COAG] Stat Lab 09/21/16 03:40 Completed TROPONIN T Stat Lab 09/21/16 03:[address] W/POSS RFLX CULT [URINALYSIS] Stat Lab 09/21/16 Completed URINE CULTURE [RM] Routine Lab 09/21/16 07:25 Completed Acetaminophen [Tylenol] Med 09/21/16 03:23 Discontinued 1,000 mg PO NOW ONE Acetaminophen [Tylenol] Med 09/21/16 07:47 Discontinued 650 mg PO Q6H PRN PRN Albuterol 2.5MG/Ipratrop 0.5MG [Duoneb (A & A)] Med 09/21/16 03:21 Discontinued 3 ml INH NOW ONE Albuterol 2.5MG/Ipratrop 0.5MG [Duoneb (A & A)] Med 09/21/16 11:30 Discontinued 3 ml INH RTQ4H Azithromycin 500 mg/Ns [Zithromax 500 mg/Ns] Med 09/21/16 03:48 Discontinued 500 mg in 250 ml IV NOW Azithromycin 500 mg/Ns [Zithromax 500 mg/Ns] Med 09/22/16 04:00 Discontinued 500 mg in 250 ml IV Q24H CefTRIAXONE 1 GM/NS [Rocephin 1 gm/Ns] Med 09/21/16 03:47 Discontinued 1 gm in 50 ml IV NOW CefTRIAXONE 1 GM/NS [Rocephin 1 gm/Ns] Med 09/22/16 05:00 Discontinued 1 gm in 50 ml IV Q24H Methylprednisolone Sod Succ [Solu-Medrol] Med 09/21/16 03:47 Discontinued 125 mg IV NOW ONE Aerosol Treatments Routine Oth 09/21/16 03:22 Completed Aerosol Treatments Routine Oth 09/21/16 07:50 Completed Aerosol Treatments Stat Oth 09/21/16 03:21 Completed Aerosol Treatments Stat Oth 09/21/16 03:22 Completed Aerosol Treatments Stat Oth 09/21/16 07:50 Completed Oxygen Device Stat Oth 09/21/16 03:23 Completed Oxygen Device Stat Oth 09/21/16 07:47 Completed Pulse Oximetry Stat Oth 09/21/16 03:21 Completed Telemetry [OM.EQ] Routine Oth 09/21/16 07:47 Active Transfer/Admit Order [TRANSFER] Routine Transfer 09/21/16 07:53 Completed Result Diagrams: 09/22/16 05:55 09/22/16 05:55 - CHANGE OF SHIFT REPORT (ED Provider) Report Given and Care Transferred to:: Dr Roy Time of Transfer: 06:00 Items Pending: Labs Departure - Departure Time of Disposition Decision: 08:00 DIAGNOSIS: COPD exacerbation Chronic obstructive airway disease Qualifiers: COPD type: unspecified COPD Qualified Code(s): J44.9 - Chronic obstructive pulmonary disease, unspecified Disposition: ADMITTED INPATIENT 09 Certified Medical Emergency: Emergent Condition: Stable - Critical Care Note This patient required my direct personal management.: No
[2016-09-21 04:12] LABS: BASO% 0.1 % (0.0-0.8); EOS# 0.05 X1000 (0.0-0.7); EOS% 0.4 % (0.0-10.0); HEMATOCRIT 40.8 % (37.0-47.0); HEMOGLOBIN 13.2 g/dL (12.0-16.0); IMM GRAN# 0.02 X1000 (0.0-0.04); IMM GRAN% 0.1 % (0.0-0.5); LYMPH# 1.34 X1000 (1.2-3.4); MCH 30.4 PG (27-31); MCHC 32.4 g/dL (33-37); MONO# 1.14 X1000 (0.11-0.59); MONO% 8.5 % (1.7-9.3); MPV 9.1 FL (7.4-10.4); NEUT% 80.9 % (42.2-75.2); PLT 199 X1000 (130-400); PROTIME 13.5 Seconds (12.1-15.5); RBC 4.34 XMIL (4.2-5.4)
[2016-09-21 04:36] LABS: AGAP 11; ALBUMIN 3.8 g/dL (3.5-5.0); ALKALINE PHOSPHATASE 72 U/L (32-104); BUN 7 mg/dL (8-22); CALCIUM 8.8 mg/dL (8.8-10.2); CHLORIDE 91 mmol/L (98-107); CK PROFILE 17 U/L (24-173); COSMO 272; GOT 17 U/L (10-30); GPT 6 U/L (10-36); POTASSIUM 3.9 mmol/L (3.5-5.1); SODIUM 136 mmol/L (136-145); TCO2 34 mmol/L (25-35); TOTAL PROTEIN 6.7 g/dL (6.3-8.3)
[2016-09-21 06:55] LABS: BILIRUBIN URINE NEGATIVE (NEGATIVE); BLOOD URINE 3+ (NEGATIVE); CLARITY CLEAR (CLEAR); COLOR YELLOW; GLUCOSE URINE NEGATIVE (NEGATIVE); LEUKOCYTES URINE 2+ (NEGATIVE); NITRITE URINE POSITIVE (NEGATIVE); PROTEIN URINE TRACE mg/dL (NEGATIVE); SP GRAVITY URINE 1.015; UROBILINOGEN URINE 4+(12 mg/dL)
[2016-09-21 07:24] LABS: URINE CULTURE PL NEEDED? YES; URINE EPITHELIAL CELLS <10 /HPF (<10); URINE RBC 20-40 /HPF (<10); URINE WBC TNTC /HPF (<10)
[2016-09-21 07:25] LABS: URINE SOURCE CATH
[2016-09-21 07:28] LABS: BE 11.6 mmoll (-3.0-3.0); BLOOD TYPE ARTERIAL; DRAW SITE R RADIAL; O2(CT) 15.2 mL/dL (15.0-23.0); PO2(98.6) 56 mmHg (60-100); SAMPLE BLOOD; SAO2 93.5 % (95.0-100.0); THB 13.5 g/dL (11.5-17.4); pH(98.6) 7.38 (7.35-7.45)
[2016-09-21 07:31] LABS: PCO2(98.6) 67 mmHg (35-45)
[2016-09-21 07:32] LABS: MODALITY CANNULA
[2016-09-21 07:33] LABS: ALLEN TEST YES
[2016-09-21] MEDS ORDERED: TYLENOL PO PRN ×3 (07:47→11:57)
[2016-09-21] MEDS ORDERED: ZOFRAN IV PRN ×2 (09:09→11:57)
[2016-09-21] MEDS ORDERED: NS 1,000 ML IV SCH (09:09)
--- NOTE | 2016-09-21 10:01 | Diag Imaging Result Document ---
PROCEDURE NAME: CHEST-2 VIEWS - 09/21/2016 FRONTAL AND LATERAL CHEST, TWO VIEWS: COMPARISON: 09/18/2016. FINDINGS: The lungs are hyperexpanded. There is an increased AP diameter to the chest. The heart is not enlarged. The pulmonary vessels are small. No pleural effusions. There are no infiltrates. There are several calcified left hilar lymph nodes and there is a calcified granuloma in the left base. IMPRESSION: 1. Emphysema. 2. No pneumonia.
[2016-09-21] MEDS: DUONEB (A & A) INH SCH ×4 (10:55→23:04)
[2016-09-21] MEDS ORDERED: DUONEB (A & A) INH PRN (11:57)
[2016-09-21] MEDS ORDERED: SOLU-MEDROL IV SCH (12:30)
[2016-09-21] MEDS: CARDIZEM CD PO SCH (15:16)
[2016-09-21] MEDS: PRINIVIL PO SCH ×2 (15:16→20:40)
[2016-09-21] MEDS: SOLU-MEDROL IV SCH ×2 (15:16→20:40)
[2016-09-21] MEDS: COGENTIN PO SCH ×2 (15:16→20:40)
[2016-09-21] MEDS: ZYPREXA PO SCH (15:17)
[2016-09-21] MEDS ORDERED: DUONEB (A & A) INH SCH (15:30)
--- NOTE | 2016-09-21 18:23 | HISTORY AND PHYSICAL ---
CHIEF COMPLAINT: Shortness of breath. HISTORY OF PRESENT ILLNESS: This is a 55-year-old female with a history of COPD, continued tobacco abuse, schizoaffective disorder and medical noncompliance. She has had multiple hospital admissions for the same as well as 3 ER visits in the last 3 nights for the same. She states that over the last 4-5 days that she has been more short of breath than her normal. Of note, the patient has not been using her home O2 and has not been using her home nebs as prescribed. She denied any chest pain, fever, chills. She did state that prior to coming to the emergency room she developed a cough with productive yellow sputum. Her cough is normally a nonproductive cough. In the emergency room oxygen saturations were 90-92% on 2 L nasal cannula. She was also noted to have a temperature of a 101.6 degrees on arrival. She was given Tylenol, Zithromax, Rocephin, DuoNeb and admitted for further evaluation and treatment. PAST MEDICAL HISTORY: COPD, schizophrenia, bipolar disorder, seizure disorder, anxiety disorder and atrial fibrillation. PAST SURGICAL HISTORY: Denies. SOCIAL HISTORY: She lives at [facility] with Ms. Alaniz. She continues to smoke 2+ packs of cigarettes a day. She denies alcohol or illicit drug use. ALLERGIES: Penicillin and aspirin. HOME MEDICATIONS: Daliresp 500 mcg daily, Protonix 40 q.a.m., Zyprexa 5 q.a.m., Prinivil 10 b.i.d., Lasix 40 daily, Depakote ER 1000 at bedtime, Cardizem CD 180 daily and Cogentin 1 mg b.i.d. REVIEW OF SYSTEMS: Pertinent positives being stated in the HPI. She denies constipation, diarrhea, black or bloody vomitus, black or bloody stools, hematuria, dysuria, frequency, urgency. PHYSICAL EXAMINATION: GENERAL: This is a 55-year-old female who is sitting in the bed in no distress. CARDIOVASCULAR: Regular rate and rhythm with S1 and S2 appreciated. PULMONARY: She has wheezes scattered throughout with no increased work of breathing noted. GASTROINTESTINAL: Abdomen soft, nontender, nondistended with bowel sounds in all 4 quadrants. BACK: No CVAT. No spine tenderness. MUSCULOSKELETAL: Good range of motion to joints. EXTREMITIES: No clubbing, cyanosis, or edema. Pulses are palpable and calves are nontender. NEUROLOGIC: She is alert and oriented x3. DIAGNOSTICS: WBC is 13.4 with a hemoglobin 13.2, hematocrit 40.8, platelets of 199,000. Sodium is 136, potassium 3.9, BUN 7, creatinine 0.5 with a glucose of 135. Urine microscopic is nitrite positive with 20-40 red blood cells and too numerous to count microscopic white blood cells and 4+ bacteria. This is a catheter specimen. Urine culture is pending. Chest x-ray revealed emphysema with no pneumonia. ASSESSMENT AND PLAN: 1. Acute on chronic hypercapnic hypoxic respiratory failure. 2. Dyspnea. 3. History of chronic obstructive pulmonary disease with acute exacerbation. 4. Febrile illness most likely from urinary tract infection. 5. Presumed urinary tract infection with urine nitrites, too numerous to count red blood cells and 20-40 microscopic white blood cells, 4+ bacteria noted with culture pending. 6. Bipolar schizophrenia, psychogenic polydipsia, anxiety disorder aware. 7. Hypertension. 8. History of atrial fibrillation. 9. Continued tobacco abuse in patient with chronic obstructive pulmonary disease on home O2. 10. Noncompliance with medications and home O2. PLAN: She will be admitted to the hospital. Placed on telemetry. Will do continuous supplemental oxygen, duo nebs q.4 hours with q.2 hours p.r.n. Steroids to taper. Will identify her home medications and continue as appropriate. Will continue with azithromycin and Rocephin once urine culture returns, if positive then antibiotics may be changed as appropriate according to sensitivity results. Will trend labs daily. Further treatments pending hospital course. Dictated by KYLE Royal for Lamonte Bradshaw MD cc: KYLE Royal MD
[2016-09-21] MEDS: DEPAKOTE ER PO SCH (20:40)
[2016-09-22] MEDS: DUONEB (A & A) INH SCH ×6 (03:05→22:46)
[2016-09-22] MEDS ORDERED: NS 500 ML IV SCH (03:15)
[2016-09-22] MEDS: ROCEPHIN 1 GM/NS 1 GM/50 ML IVPB IV SCH (04:45)
[2016-09-22] MEDS: SOLU-MEDROL IV SCH ×3 (04:45→21:46)
[2016-09-22] MEDS: ZITHROMAX 500 MG/NS 500 MG/250 ML IVPB IV SCH (05:39)
[2016-09-22] MEDS: PRILOSEC PO SCH (06:21)
[2016-09-22 06:40] LABS: HEMATOCRIT 36.2 % (37.0-47.0); HEMOGLOBIN 11.1 g/dL (12.0-16.0); MCH 29.4 PG (27-31); MCHC 30.7 g/dL (33-37); MCV 95.8 FL (81-99); MPV 9.7 FL (7.4-10.4); RBC 3.78 XMIL (4.2-5.4)
[2016-09-22 07:00] LABS: AGAP 10; ALBUMIN 2.9 g/dL (3.5-5.0); ALKALINE PHOSPHATASE 59 U/L (32-104); BUN 17 mg/dL (8-22); CALCIUM 8.6 mg/dL (8.8-10.2); CHLORIDE 91 mmol/L (98-107); COSMO 274; GOT 8 U/L (10-30); GPT 5 U/L (10-36); MAGNESIUM 1.5 mg/dL (1.5-2.7); POTASSIUM 4.1 mmol/L (3.5-5.1); SODIUM 134 mmol/L (136-145); TCO2 33 mmol/L (25-35); TOTAL BILIRUBIN < 0.15 mg/dL (0.20-1.00); TOTAL PROTEIN 5.9 g/dL (6.3-8.3)
[2016-09-22] MEDS ORDERED: PRILOSEC PO SCH (07:00)
[2016-09-22] MEDS: COGENTIN PO SCH ×2 (09:39→21:45)
[2016-09-22] MEDS: PRINIVIL PO SCH ×2 (09:39→21:46)
[2016-09-22] MEDS: LASIX PO SCH (09:39)
[2016-09-22] MEDS: CARDIZEM CD PO SCH (09:39)
[2016-09-22] MEDS: ZYPREXA PO SCH (09:39)
--- NOTE | 2016-09-22 13:10 | PROGRESS NOTE ---
DATE: 09/22/2016 SUBJECTIVE: The patient notes that she is feeling a lot better than she did on admission. She is having less cough, congestion, and less shortness of breath. Denies any GI or issues otherwise. Denies any chest pain, palpitations. OBJECTIVE: Vital signs: Temperature 97, pulse 92, respiratory 18, BP 137/76, saturating 94% on 2 L. General: The patient is awake, alert. She is in much less respiratory distress today than she was yesterday. HEENT: Normocephalic atraumatic. Neck: Supple. CV: Regular rate. Chest: Relatively clear positive wheezing but improved. Good air movement. Abdomen: Soft. Extremities: Moves all extremities. Neurologic: No focal changes. Skin: Warm and dry. No rashes. LABS: CBC and CMP essentially normal this morning. Albumin 2.9. Micro demonstrating gram-negative rods on UA. ASSESSMENT: 1. Urinary tract infection with gram-negative rods. Continue Rocephin. 2. Acute on chronic hypoxic respiratory failure. 3. Chronic obstructive pulmonary disease with exacerbation. Continue breathing treatments, steroids, oxygen. 4. Dyspnea on exertion, improving. 5. Febrile illness, appears resolved. 6. Bipolar with schizophrenia. 7. History of psychogenic polydipsia. 8. Anxiety. 9. Hypertension. 10. History of atrial fibrillation. 11. Chronic tobacco abuse. Again, discussed with the patient the perils of smoking as well as ways to stop. PLAN: We will continue Rocephin and azithromycin. We will decrease her Solu-Medrol to 40 IV q.8. We will continue to follow. Further orders as needed. cc: Lamonte Bradshaw MD
[2016-09-22] MEDS: DEPAKOTE ER PO SCH (21:45)
[2016-09-23] MEDS: DUONEB (A & A) INH SCH ×6 (03:22→22:45)
[2016-09-23] MEDS: ROCEPHIN 1 GM/NS 1 GM/50 ML IVPB IV SCH (04:18)
[2016-09-23] MEDS: SOLU-MEDROL IV SCH (04:18)
[2016-09-23] MEDS: ZITHROMAX 500 MG/NS 500 MG/250 ML IVPB IV SCH (05:41)
[2016-09-23] MEDS: PRILOSEC PO SCH (06:25)
[2016-09-23] MEDS ORDERED: ZITHROMAX 500 MG/NS 500 MG/250 ML IVPB IV SCH (08:08)
--- NOTE | 2016-09-23 08:30 | PROGRESS NOTE ---
DATE: 09/23/2016 SUBJECTIVE: Patient notes that she is breathing much easier this morning. She denies any current shortness of breath. Did have an episode yesterday where she took her oxygen off and dropped down into the upper 70s. This was easily resolved with a breathing treatment and replacing her oxygen. Notes that she was on oxygen at home until she got scared of the machine and made them come get it and take it back. PHYSICAL EXAMINATION: Vital Signs: Temperature 98, pulse 108-89, respiratory rate 18, BP 140/69, saturation 96% on 2 L. General: Patient is awake, alert, currently in no respiratory distress. She is pleasant to talk with. Speech is regular. Memory is intact. Neck: Supple. CV: Regular rate. Chest: Relatively clear. Abdomen: Soft. Extremities: Moves all extremities. LABORATORY DATA: No current labs this morning. We will recheck in the a.m. ASSESSMENT: 1. Acute on chronic hypoxic respiratory failure, improved. 2. Urinary tract infection with gram-negative rods. Culture and sensitivity still pending. 3. Chronic obstructive pulmonary disease with moderate exacerbation. Continue steroids, although we will decrease to 40 intravenous every 8 today. Continue azithromycin but change to oral. Continue Rocephin. 4. Bipolar, schizophrenia, certainly contributing to her noncompliance at home. 5. Hypertension. 6. Chronic tobacco abuse. 7. Epigastric pain, appears resolved. PLAN: As noted, we will continue patient's home medications. Continue to hold Daliresp but we will continue her Protonix and Norvasc as well as Depakote. We will decrease steroids. Hopefully home in 1-2 days. cc: Lamonte Bradshaw MD
[2016-09-23] MEDS: ZYPREXA PO SCH (09:29)
[2016-09-23] MEDS: COGENTIN PO SCH ×2 (09:29→20:23)
[2016-09-23] MEDS: LASIX PO SCH (09:29)
[2016-09-23] MEDS: CARDIZEM CD PO SCH (09:29)
[2016-09-23] MEDS: PRINIVIL PO SCH ×2 (09:29→20:23)
[2016-09-23] MEDS ORDERED: SOLU-MEDROL IV SCH (12:00)
[2016-09-23] MEDS: PREDNISONE PO SCH (20:23)
[2016-09-23] MEDS: DEPAKOTE ER PO SCH (20:24)
[2016-09-24] MEDS: DUONEB (A & A) INH SCH ×2 (03:27→08:42)
[2016-09-24] MEDS: ROCEPHIN 1 GM/NS 1 GM/50 ML IVPB IV SCH (05:46)
[2016-09-24] MEDS: PRILOSEC PO SCH (06:46)
[2016-09-24] MEDS ORDERED: LEVAQUIN PO SCH (09:00)
[2016-09-24] MEDS ORDERED: ZITHROMAX PO SCH (09:00)
[2016-09-24] MEDS: CARDIZEM CD PO SCH (09:08)
[2016-09-24] MEDS: COGENTIN PO SCH (09:09)
[2016-09-24] MEDS: LASIX PO SCH (09:09)
[2016-09-24] MEDS: PREDNISONE PO SCH (09:09)
[2016-09-24] MEDS: PRINIVIL PO SCH (09:10)
[2016-09-24] MEDS: ZYPREXA PO SCH (09:10)
[2016-09-24 15:55] VITALS: BP 129/78
[2016-09-24] MEDS ORDERED: DEPAKOTE ER PO SCH (21:00)
--- NOTE | 2016-09-26 03:11 | DISCHARGE SUMMARY ---
ADMISSION DATE: 09/21/2016 DISCHARGE DATE: 09/24/2016 ADMISSION DIAGNOSES: 1. [id number] hypercapnic, hypoxic respiratory failure. 2. Dyspnea. 3. An acute exacerbation of chronic obstructive pulmonary disease. 4. Febrile illness, likely was secondary to a urinary tract infection. 5. Bipolar schizophrenia. 6. Hypertension. 7. History of atrial fibrillation. DISCHARGE DIAGNOSES: 1. [id number] hypercapnic, hypoxic respiratory failure, improved, but did require home O2. 2. Dyspnea, improved. 3. An acute chronic obstructive pulmonary disease exacerbation, improved. 4. Febrile illness, secondary to a urinary tract infection, resolved. 5. A Klebsiella oxytoca urinary tract infection. 6. Bipolar schizophrenia. 7. Hypertension. 8. History of atrial fibrillation. 9. Tobacco abuse. SUMMARY OF FINDINGS: This is a 55-year-old female who presents to the emergency room, having multiple admissions, with 3 ER visits in the last 3 nights for the same complaint. States that over the last 4-5 days, she had been more short of breath than normal. She had not been using her home O2, and not been using her home nebs as prescribed. When she arrived to the emergency room, she had O2 saturations that were 90% to 92% on 2 L, and was noted to have a temperature of 101.6 degrees. She was admitted, placed on supplemental O2, DuoNebs q.4 h. and q.2 h. p.r.n., a steroid taper, antibiotics. We obtained a urine culture that showed Klebsiella oxytoca. Her white cells returned to normal. She remained afebrile for greater than 24 hours. She did however qualify for home O2, as her O2 saturation on room air was 87%, so she was set up with 2 L via nasal cannula for home use, and it was felt that she could safely be discharged home. DISCHARGE MEDICATIONS: She will continue her on Norvasc 5 mg p.o. daily, Cogentin 1 mg p.o. b.i.d., Cardizem CD 180 p.o. daily, Depakote ER 1000 mg p.o. at bedtime, Lasix 40 mg p.o. daily, Haldol Decanoate as prescribed, Levaquin 500 mg 1 p.o. daily #5, with no refills, lisinopril 10 mg p.o. b.i.d., Zyprexa 5 mg p.o. q.a.m., Protonix 40 mg p.o. q.a.m., prednisone 20 mg p.o. daily #10, with no refills, Daliresp 500 mcg p.o. daily. FOLLOWUP: We referred her to the free clinic. We also gave her the physician referral line to obtain a primary care. It is noted that the patient is currently living in a group home, and will most likely qualify for the free clinic. She is to follow up there. TIME SPENT: 35 minutes. Dictated by KYLE Hubbard for Lamonte Bradshaw MD cc: KYLE Hubbard MD
--- NOTE | 2016-09-28 18:23 | DISCHARGE SUMMARY ---
ADMISSION DATE: 09/21/2016 DISCHARGE DATE: 09/24/2016 DISCHARGE DIAGNOSES: 1. Acute on chronic hypoxic respiratory failure, improved back to baseline. 2. Dyspnea on exertion, resolved. 3. Chronic obstructive pulmonary disease with acute exacerbation, improved. 4. Urinary tract infection, improved, Klebsiella, sensitive to Levaquin. 5. Psychogenic polydipsia, stable. 6. Schizophrenia, stable. 7. Hypertension. 8. History of atrial fibrillation. 9. Chronic tobacco abuse. 10. Chronic hypoxic respiratory failure. 11. Chronic noncompliance. PLAN: The patient was initially admitted to the hospital as noted on the HPI with a febrile illness, leukocytosis, and diagnosed with sepsis. She was placed on Rocephin and azithromycin. Thankfully she continued to improve. Her sepsis resolved. Likely her sepsis was secondary to her Klebsiella UTI. She unfortunately has a known history of being noncompliant with her medications and medical treatment. She wears her oxygen at home sometimes and sometimes she decides not to. She frequently does not take her medications, nor breathing treatments on a regular basis. As noted, she was admitted, placed on Rocephin and azithromycin. She was given high-dose steroids for her chronic obstructive pulmonary disease exacerbation. Steroids were continue to wean. Her diet was advanced. Her epigastric pain resolved. Her UTI returned as Klebsiella. She was changed to Levaquin p.o. which she tolerated very well. DISPOSITION: The patient will be discharged home. She will follow up outpatient with primary care of her choice. She hopefully will continue Levaquin for a total 7 days. She will continue her breathing treatments, wear her oxygen at home. She will continue her Medrol Dosepak steroid taper. TIME SPENT: Thirty-five minutes were spent in discharge planning and instructions. cc: Lamonte Bradshaw MD
== END 2016-09-24 16:20 | disposition home or self-care (01) ==
LOC: P.MEDSURG 03:09 → P.ED 03:09 → OBSVTOIN 08:07
PROVIDERS: ATTEND Family Medicine